=== PATIENT | female | born 1950 | race Caucasian/White ===

== ENCOUNTER → 2017-12-10 01:58 | Outpatient (CLI) | payer OTHER, SELFPAY ==
[2017-12-10 13:43] LABS: ESR 22 MM/HR (0-30)
== END ==
PROVIDERS: PCP Family Medicine; Visit Provider Family Medicine
DX: M79.1 Myalgia (principal)
CPT/HCPCS: 36415; 85652; 86140

== ENCOUNTER → 2018-03-19 09:24 | Outpatient (BNVA) | payer OTHER, SELFPAY | PROVIDERS: PCP Family Medicine; Visit Provider Nurse Practitioner Family | DX: I44.2 Atrioventricular block, complete (principal); I25.10 Atherosclerotic heart disease of native coronary artery without angina pectoris; E78.5 Hyperlipidemia, unspecified; I10 Essential (primary) hypertension; Z45.018 Encounter for adjustment and management of other part of cardiac pacemaker; J44.9 Chronic obstructive pulmonary disease, unspecified; Z87.891 Personal history of nicotine dependence | CPT/HCPCS: 93280; 99214 ==

== ENCOUNTER 2018-04-10 08:10 | Emergency (ER) | payer OTHER, SELFPAY ==
--- NOTE | 2018-04-10 08:19 | W.ED.GENAD ---
Discharge Plan Disposition Patient Disposition: HOME Condition: Fair Discharge Details Chief Complaint: RespSymp Clinical Impression: COPD (chronic obstructive pulmonary disease), Hypoxia Primary Care Provider: Temo Beauchamp ED Provider: Irene Tafoya Home Meds and New Rx's Prescriptions: Continued aspirin [Aspirin Low-Strength] 81 MG tablet,chewable 81 mg PO DAILY RF: 0 TUMS 1 tab PO PM PRN RF: 0 ibuprofen 200 MG tablet 2 tab PO HS RF: 0 lisinopril 20 mg tablet 20 mg PO DAILY Qty: 90 RF: 3 ProAir HFA 90 mcg/actuation HFA aerosol inhaler 1 - 2 puff Inhalation Q4H PRN Qty: 1 RF: 2 metoprolol tartrate 50 mg tablet 50 mg PO BID Qty: 180 RF: 4 No Action albuterol sulfate 2.5 mg /3 mL (0.083 %) solution for nebulization 2.5 mg Inhalation q4-6 h prn Qty: 1 RF: 4 Discharge Instructions Instructions: Using Oxygen at Home (ED), COPD (Chronic Obstructive Pulmonary Disease) (ED), Hypoxia (ED) Additional Instructions: You have elected to leave AGAINST MEDICAL ADVICE, as we recommended admission and you chose to be discharged. The risks of leaving AGAINST MEDICAL ADVICE are and/or permanent disability. You may return to the emergency department at any time if you change your mind. Please return immediately to the emergency department if you develop any new or worsening symptoms or if you become otherwise concerned. It is extremely important that you begin home oxygen as soon as possible as we discussed. It is also extremely important that you make an appointment to be seen by Dr. Montoya next week. Referrals: Temo Beauchamp [Primary Care Provider] - Discharge Data Discharge Date/Time-TO BE ENTERED AT DEPARTURE: 04/10/18 13:27 Medical Decision Making Holli Green is a 67-year-old woman with history of hyperlipidemia, hypertension, complete heart block status post pacemaker, COPD, coronary artery disease, abdominal aortic aneurysm repaired in the past presenting to the emergency department with 1 week of shortness of breath and cough that seems worse at night without any orthopnea. On exam patient is well and nontoxic appearing. Normal work of breathing. Bilateral lower lobes with fine rales, mild expiratory wheeze throughout bilateral lung bolton. 2+ pitting edema bilateral lower extremities without posterior calf tenderness or overlying skin changes. Concern for pneumonia versus CHF versus PE versus coronary artery disease versus other. Exam/history not consistent with sepsis, acute aortic pathology at this time. Plan for EKG, chest x-ray, screening labs, telemetry, duoneb, will monitor and reassess. Patient reports feeling somewhat better after DuoNeb. No significant shortness of breath at this time. Elevated d-dimer. Plan for CT chest. CT chest nondiagnostic. Patient with continued hypoxia on room air. At rest on room air patient O2 sat 88%, heart rate 75. During ambulation on room air, patient O2 sat 82% and heart rate 89. I have significant concern for hypoxia, need for further evaluation and also for home O2. Plan for admission. Patient refuses admission and states that she would prefer to go home and get oxygen through her PCP. Lengthy discussion with patient regarding risks of leaving AGAINST MEDICAL ADVICE including and permanent disability. Patient verbalizes understanding of these risks, and continues to state that she does not want to be admitted and would like to go home at this time. She reports that she feels in her usual state of health at this point. Patient has capacity for decision-making. I discussed patient presentation, results, and my concerns with Dr. Beauchamp over the phone, who reports that he will prescribe home oxygen for the patient and see her in follow-up next week. Lengthy discussion with patient regarding return to emergency department precautions and importance of outpatient follow-up with Dr. Beauchamp. Medical Records Medical records reviewed: Yes I reviewed the patient's medical records. Imaging Data Radiologic Study: Attestation: I personally reviewed and interpreted this imaging study as follows: Radiologist's impression: FRONTAL AND LATERAL CHEST: Comparison is made with 07/15/15. Heart size and pulmonary vasculature are within normal limits. The pacing wires are stable in position. No findings to suggest congestive heart failure or pneumonia are appreciated. No effusions or pneumothoraces are identified. Age appropriate degenerative changes are seen in the spine. IMPRESSION: No acute pulmonary process. CTA OF THE CHEST: CT angiography was performed with multi slice acquisition and multi planar and 3D reconstruction. CT scan of the chest was performed according to the pulmonary embolus protocol. There is no evidence of a pulmonary embolus. The thoracic aorta is of normal caliber. No aneurysm or dissection. The heart size is within normal limits. No significant pericardial effusion. No evidence of right ventricular dysfunction is present. Pacing leads are stable in position. No thoracic adenopathy, pleural effusion or pneumothorax is identified. Emphysematous changes are present in the lungs. There is biapical pleural and parenchymal scarring. Degenerative changes are seen in the spine. IMPRESSION: No evidence of a pulmonary embolus, thoracic aortic dissection or aneurysm. Lab Data Lab results reviewed: Yes I reviewed the patient's lab results. ECG Data Attestation: I personally reviewed and interpreted this ECG (s) as follows: Interpretation: EKG shows normal sinus rhythm at 60 with normal axis, T wave changes V1 and V2 with similar morphology on prior 2013. NO STEMI. Nondiagnostic EKG. HPI General Mode of arrival: ambulatory. Date/Time Provider Initiated Documentation: 04/10/18 08:19. Limitations to Documentation: no limitations. Information obtained by: patient, family, RN notes reviewed and old records reviewed. HPI Narrative: Holli Green is a 67-year-old woman with history of abdominal aortic aneurysm repaired in the past, coronary artery disease, complete heart block status post pacemaker placement, COPD, hypertension, hyperlipidemia presenting to the emergency department with shortness of breath. Patient reports that over the past week she has had shortness of breath and cough. She reports that shortness of breath seems worse at night while lying down. Patient typically sleeps in bed with 3 pillows, and this has not changed over the past week. She has been using her inhaler with only mild relief. She reports that shortness of breath is worse at night and with exertion. Patient reports that she has had no associated pain, although today she had muscle spasms in her back that have since resolved. She has had mild intermittent nausea over the past week without vomiting. She reports she has not noticed any new swelling in her legs. Related Data Home Medications Medication Instructions Recorded Confirmed Tums 1 tab PO PM PRN 09/16/12 04/17/18 aspirin [Aspirin Low-Strength] 81 mg PO DAILY tab-cap 09/16/12 04/17/18 ibuprofen 2 tab PO HS 12/29/15 04/17/18 lisinopril 20 mg tablet 20 mg PO DAILY #90 tab-cap 02/25/18 04/17/18 albuterol sulfate HFA 90 1 - 2 puff INHALATION Q4H PRN #1 03/07/18 04/17/18 mcg/actuation aerosol inhaler inhaler metoprolol tartrate 50 mg tablet 50 mg PO BID #180 tab-cap 04/08/18 04/17/18 albuterol sulfate 2.5 mg/3 mL 2.5 mg INHALATION q4-6 h prn #1 box 04/13/18 04/17/18 (0.083 %) solution for nebulization Previous Rx's Medication Instructions Recorded lisinopril 20 mg tablet 20 mg PO DAILY #90 tab-cap 02/25/18 albuterol sulfate HFA 90 1 - 2 puff INHALATION Q4H PRN #1 03/07/18 mcg/actuation aerosol inhaler inhaler metoprolol tartrate 50 mg tablet 50 mg PO BID #180 tab-cap 04/08/18 albuterol sulfate 2.5 mg/3 mL 2.5 mg INHALATION q4-6 h prn #1 box 04/13/18 (0.083 %) solution for nebulization Allergies Allergy/AdvReac Type Severity Reaction Status Date / Time Gadolinium-Containing Allergy Intermediate Hives Unverified 04/17/18 14:42 Contrast Medi carisoprodol AdvReac Severe GI UPSET Unverified 04/17/18 14:42 codeine AdvReac Severe GI UPSET Unverified 04/17/18 14:42 hydromorphone HCl AdvReac Severe HEAD FEELS Unverified 04/17/18 14:42 [From Dilaudid] FUNNY levofloxacin AdvReac Severe RED FACE Unverified 04/17/18 14:42 AND CHEST, NOT FEEL WELL oxycodone AdvReac Severe GI UPSET Unverified 04/17/18 14:42 triamcinolone acetonide AdvReac Severe BURN AND Unverified 04/17/18 14:42 [From Kenalog] ITCH atorvastatin AdvReac Intermediate MYALGIA Unverified 04/17/18 14:42 pravastatin AdvReac Intermediate MYALGIA Unverified 04/17/18 14:42 simvastatin AdvReac Intermediate MYALGIAS Unverified 04/17/18 14:42 rosuvastatin AdvReac Mild HEARTBURN Unverified 04/17/18 14:42 atenolol AdvReac Unknown Unverified 04/17/18 14:42 Sulfa (Sulfonamide AdvReac Unknown NAUSEA, Unverified 04/17/18 14:42 Antibiotics) VOMITING RED YEAST RICE AdvReac Severe Uncoded 04/17/18 14:42 Review of Systems Review of Systems Constitutional: denies fevers Eyes: denies eye pain ENT: denies facial pain, dental pain, sore throat Cardiovascular: denies chest pain, edema Respiratory: Reports SOB, cough, denies new orthopnea GI: denies abdominal pain, vomiting, diarrhea, reports nausea : denies flank pain MSK: denies back pain, neck pain, arthralgias, reports muscle spasms to back earlier today Skin: denies rash Neuro: denies headaches, lightheadedness, weakness, numbness, tingle PFSH Social History Smoking/Tobacco Use Status: Former Tobacco Use Exam Narrative Exam Narrative: Constitutional: well and [id number], pleasant, conversing normally HENT: head atraumatic, normocephalic normal inspection, mucous membranes moist Eyes: conjunctiva normal, sclera normal, pupils 3mm b/l Neck: no stridor, normal ROM, trachea midline Chest: normal inspection, pacemaker pocket nontender, without edema or erythema Resp: normal work of breathing, fine rales bilateral lower lobes, mild expiratory wheeze throughout bilaterally Cardio: normal rate, normal rhythm, no murmur appreciated GI: abdomen soft, non-tender, non-distended Back: normal inspection, no rash Skin: warm, dry, normal color, no rash Neuro: alert, not altered, grossly non-focal, normal tone Ext: 2+ pitting edema bilateral lower extremities, no posterior calf tenderness Psych: normal mood, normal affect, normal behavior
[2018-04-10 08:21] VITALS: BP 198/81; PULSE 60; RESP 18; TEMP 37.3; O2SAT 92
--- NOTE | 2018-04-10 08:36 | DI.RAD_ITS ---
SYMPTOM/DIAGNOSIS: SOB, COUGH FRONTAL AND LATERAL CHEST: Comparison is made with 07/15/15. Heart size and pulmonary vasculature are within normal limits. The pacing wires are stable in position. No findings to suggest congestive heart failure or pneumonia are appreciated. No effusions or pneumothoraces are identified. Age appropriate degenerative changes are seen in the spine. IMPRESSION: No acute pulmonary process.
[2018-04-10 08:50] LABS: Abs Immature Grans 0.04 k/cumm (0.0-0.09); Absolute Basophil Count 0.03 k/cumm (0.0-0.2); Absolute Lymphocyte Count 2.07 k/cumm (1.2-3.4); Absolute Monocyte Count 0.91 k/cumm (0.11-0.7); Absolute Neutrophil Count 5.97 k/cumm (1.2-6.7); Basophils % 0.3; Eosinophils % 1.1; HCT 41.4 % (36.0-46.0); HGB 13.5 g/dL (12.0-15.5); Immature Grans % 0.4; Lymphocytes % 22.7; Mean Corp. HGB Concentration 32.6 g/dL (32.0-36.0); Mean Corpuscular Hemoglobin 30.5 pg (27.0-33.0); Mean Corpuscular Volume 93.5 fL (80-95); Mean Platelet Volume 12.8 fL (8.0-11.0); Neutrophils % 65.5; Platelet Count 280 x1000/uL (130-400); RBC 4.43 m/cumm (4.00-5.20); RBC Distribution Width 14.9 % (11.7-14.6); White Blood Cell Count 9.12 k/cumm (4.4-10.8)
[2018-04-10 08:57] VITALS: PULSE 60; RESP 2; RESP 25; O2SAT 90
[2018-04-10] MEDS: Albuterol/Ipratropium 3 ML UPD VIAL UPD (08:57)
[2018-04-10] MEDS: Normal Saline Flush 10 ML SYR IVP (08:58)
[2018-04-10 09:08] LABS: ALT 21 U/L (12-78); AST 11 U/L (15-37); Albumin 3.6 g/dL (3.4-5.0); Alkaline Phosphatase 92 U/L (46-116); Anion Gap 9.4 mmol/L (3-11); BUN 16 mg/dL (7-18); Bilirubin, Total 0.4 mg/dL (0.2-1.0); CO2 28.6 mmol/L (21.0-32.0); Calcium 9.1 mg/dL (8.5-10.1); Chloride 100 mmol/L (98-107); Glucose 124 mg/dL (70-100); Magnesium 1.9 mg/dL (1.8-2.4); NT-proBNP 453 pg/mL; Potassium 3.9 mmol/L (3.5-5.1); Sodium 138 mmol/L (136-145); Total Protein 7.4 g/dL (6.4-8.2)
[2018-04-10 09:11] LABS: Troponin I < 0.02 ng/mL (0.00-0.06)
[2018-04-10 09:32] LABS: D-Dimer 2617 ng/mlFEU (<500)
[2018-04-10] MEDS: Omnipaque 350 MG/ML 100 ML BTL 89 ML IJ (11:43)
--- NOTE | 2018-04-10 11:43 | DI.CT_ITS ---
SYMPTOMS/DIAGNOSIS: SHORTNESS OF BREATH, COUGH CTA OF THE CHEST: CT angiography was performed with multi slice acquisition and multi planar and 3D reconstruction. CT scan of the chest was performed according to the pulmonary embolus protocol. There is no evidence of a pulmonary embolus. The thoracic aorta is of normal caliber. No aneurysm or dissection. The heart size is within normal limits. No significant pericardial effusion. No evidence of right ventricular dysfunction is present. Pacing leads are stable in position. No thoracic adenopathy, pleural effusion or pneumothorax is identified. Emphysematous changes are present in the lungs. There is biapical pleural and parenchymal scarring. Degenerative changes are seen in the spine. IMPRESSION: No evidence of a pulmonary embolus, thoracic aortic dissection or aneurysm. The findings were discussed with Mel Shannon of the emergency department on the date of the examination.
[2018-04-10 13:36] VITALS: BP 200/83; PULSE 66; TEMP 36.1; O2SAT 93
[2018-04-10] MEDS: predniSONE 20 MG TAB 60 MG PO (13:43)
--- NOTE | 2018-04-10 18:28 | NUR.NOTE ---
Nursing Note:patient advised to return with any new or worsening sx without hesitation and to call 911 if needed. patient stated she would if need be.
== END 2018-04-10 13:27 | disposition home or self-care (01) ==
PROVIDERS: Emergency Provider Student in an Organized Health Care Education/Training Program; PCP Family Medicine
DX: J44.9 Chronic obstructive pulmonary disease, unspecified (principal); R09.02 Hypoxemia; Z87.891 Personal history of nicotine dependence; Z53.29 Procedure and treatment not carried out because of patient's decision for other reasons; I10 Essential (primary) hypertension; I44.2 Atrioventricular block, complete; Z95.0 Presence of cardiac pacemaker
CPT/HCPCS: 36415; 71275; 80053; 87449; 93005; 94640; 99285; 71046; 83735; 83880; 84484; 85025; 85379; 93010; J3490; J7512; J7620

== ENCOUNTER 2020-05-25 14:38 | Outpatient (REF) | payer OTHER, SELFPAY ==
[2020-05-25 21:52] LABS: Bilirubin Negative (Negative); Blood Trace-lysed (Negative); Clarity Cloudy (Clear); Glucose Negative (Negative); Ketones Negative (Negative); Leukocyte Esterase Small (Negative); Nitrite Negative (Negative); Specific Gravity 1.025 (1.005-1.025); Urobilinogen 0.2 EU/dL (Up TO 0.2); pH 5.5 (5-8)
[2020-05-25 22:05] LABS: Bacteria Many HPF (Negative); C & S Indicated? Yes; Casts Negative LPF (Negative); Crystals Negative HPF (Negative); Epithelial Cells Few HPF (Negative); Mucus Negative (Negative); RBC 0-2 HPF (0-2)
== END 2020-05-25 14:58 ==
LOC: LBN 14:38
PROVIDERS: PCP Family Medicine; Visit Provider Family Medicine
DX: R82.90 Unspecified abnormal findings in urine (principal)
CPT/HCPCS: 87077; 81003; 81015; 87086; 87186

== ENCOUNTER 2021-02-02 09:16 | Inpatient (IN) | payer OTHER, SELFPAY ==
[2021-02-02] VITALS (39 sets, daily range): BP systolic 138–177; BP diastolic 59–85; PULSE 61–80; RESP 13–27; TEMP 35.1–37; O2SAT 85–96
--- NOTE | 2021-02-02 09:15 | RT.EKG_ITS ---
APPROVED REPORT Exam: Resting ECG Reason for Exam: sob Patient Location: E HR:69 bpm ECG Measurements Heart Rate 69 AXIS DC 209 P 45 QRSd 104 QRS 42 QT 396 T 3 QTc 424 Conclusion Sinus rhythm...normal P axis, V-rate 60- 99
--- NOTE | 2021-02-02 09:47 | ED.GENADUL_ITS ---
Discharge Plan Disposition Patient Disposition: [facility] INPATIENT Condition: Stable Discharge Details Chief Complaint: SOB Clinical Impression: CHF (congestive heart failure) Admit Date/Time: 02/02/21 12:46 Admit Provider: Chrissy Tariq Attending Provider: Chrissy Tariq Primary Care Provider: Temo Beauchamp ED Provider: Camilo Woods Discharge Data Discharge Date/Time-TO BE ENTERED AT DEPARTURE: 02/02/21 14:26 Medical Decision Making 70-year-old female presents from home. She has history of COPD, CHF. She notes approximately 1 week somewhat progressive exertional dyspnea that has been worsened climbing stairs in her home. Does some shortness of breath while lying flat upon my history taking, preferring the upright position. She has had some mild peripheral edema. She also notes postnasal drip. Well-appearing, oxygenating 90% on room air. X-ray reveals question increased interstitial markings in the right base, representing atelectasis or pneumonia. Pulmonary vasculature normal. Remainder of diagnostics reveal white count 7, hematocrit 40, platelets 278. BUN 18, creatinine 0.8, troponin negative, BNP 440. After nebulizer treatment with beta agonist, patient desaturates at rest to 86% on room air,, requiring nasal oxygen. I feel her hypoxia is multimodal and likely has a component of CHF, bronchospasm. Patient served in a cardiac exercise specialist and repeat troponin obtained and negative. Case discussed with Dr. Tariq, patient administered 20 mg of Lasix for fluid overload with approx 850cc UOP. HPI General Mode of arrival: ambulatory . Date/Time Provider Initiated Documentation: 02/02/21 09:25 . Limitations to Documentation: no limitations . Information obtained by: patient . History of Present Illness 70 year old F presents to the emergency department with the chief complaint of Shortness of breath, chronic cough, postnasal drip, described as moderate, and is localized to the chest. Patient reports no radiation. Patient started experiencing this day(s) and it has been intermittent. Rest improves symptom(s), Movement worsens symptoms . Patient notes cough and shortness of breath; denies fever/chills. Patient did receive the following treatments prior to arrival, none Related Data Home Medications Medication Instructions Recorded Confirmed aspirin [Aspirin Low-Strength] 81 mg PO DAILY tab-cap 09/16/12 02/02/21 ibuprofen 2 tab PO HS 12/29/15 02/02/21 albuterol sulfate 90 mcg/actuation 1 - 2 puff INHALATION Q4H PRN #1 04/15/19 02/02/21 aerosol inhaler inhaler nitroglycerin 0.4 mg sublingual 0.4 mg SUBLINGUAL Q5-15M PRN #25 05/29/20 02/02/21 tablet tab albuterol sulfate 2.5 mg INHALATION q4-6 h prn #1 box 07/16/20 02/02/21 metoprolol succinate 25 mg 37.5 mg PO DAILY #135 tab 07/26/20 02/02/21 tablet,extended release 24 hr lisinopril 40 mg tablet 40 mg PO DAILY #90 tab 08/24/20 02/02/21 doxazosin 2 mg tablet 2 mg PO DAILY #30 tab 12/10/20 02/02/21 Previous Rx's Medication Instructions Recorded albuterol sulfate 90 mcg/actuation 1 - 2 puff INHALATION Q4H PRN #1 04/15/19 aerosol inhaler inhaler nitroglycerin 0.4 mg sublingual 0.4 mg SUBLINGUAL Q5-15M PRN #25 05/29/20 tablet tab albuterol sulfate 2.5 mg INHALATION q4-6 h prn #1 box 07/16/20 metoprolol succinate 25 mg 37.5 mg PO DAILY #135 tab 07/26/20 tablet,extended release 24 hr lisinopril 40 mg tablet 40 mg PO DAILY #90 tab 08/24/20 doxazosin 2 mg tablet 2 mg PO DAILY #30 tab 12/10/20 Allergies Allergy/AdvReac Type Severity Reaction Status Date / Time Gadolinium-Containing Allergy Intermediate Hives Verified 02/02/21 09:34 Contrast Medi hydrochlorothiazide Allergy Intermediate rash/hives Verified 02/02/21 09:34 spironolactone Allergy Intermediate RASH, Verified 02/02/21 09:34 ITCHING, NAUSEA, H/A carisoprodol AdvReac Severe GI UPSET Verified 02/02/21 09:34 codeine AdvReac Severe GI UPSET Verified 02/02/21 09:34 hydromorphone HCl AdvReac Severe HEAD FEELS Verified 02/02/21 09:34 [From Dilaudid] FUNNY levofloxacin AdvReac Severe RED FACE Verified 02/02/21 09:34 AND CHEST, NOT FEEL WELL oxycodone AdvReac Severe GI UPSET Verified 02/02/21 09:34 triamcinolone acetonide AdvReac Severe BURN AND Verified 02/02/21 09:34 [From Kenalog] ITCH amlodipine AdvReac Intermediate Nausea Verified 02/02/21 09:34 atorvastatin AdvReac Intermediate MYALGIA Verified 02/02/21 09:34 pravastatin AdvReac Intermediate MYALGIA Verified 02/02/21 09:34 simvastatin AdvReac Intermediate MYALGIAS Verified 02/02/21 09:34 rosuvastatin AdvReac Mild HEARTBURN Verified 02/02/21 09:34 atenolol AdvReac Unknown Verified 02/02/21 09:34 Sulfa (Sulfonamide AdvReac Unknown NAUSEA, Verified 02/02/21 09:34 Antibiotics) VOMITING RED YEAST RICE AdvReac Severe Uncoded 02/02/21 09:34 General Stated Complaint: SOB OSEI: 2 Review of Systems Narrative: Shortness of breath worse with exertion climbing stairs. Chronic cough that is unchanged. Question new peripheral edema. Postnasal drip. No fever. 8 systems reviewed and otherwise negative [facility] Medical History Allergic sinusitis Sleep disorder Surgical History AAA REPAIR 07/2009 BUNIONECTOMY X4 Ligation of fallopian tube BSO Pacemaker (~02/2013) Repair of inguinal hernia LEFT Splenomegaly (~07/2009) Stent placement (~06/2008) X 1 Family History Mother Essential hypertension Aortic aneurysm Father Heart disease [place] (8) Essential hypertension Aortic aneurysm Heart disease Hyperlipidemia Grandfather No problems noted. Grandfather No problems noted. Grandmother No problems noted. Grandmother No problems noted. Social History Smoking/Tobacco Use Status: Former Tobacco Use Quit Date: 01/29/08 Smoking risk assessment performed?: Yes Alcohol Intake: never Drug use: Never Substance use type: does not use Do you feel safe at home: Yes Do you feel safe in your relationship?: Yes Exam Narrative Exam Narrative: GEN: awake, alert, oriented 3. Pleasant, well groomed, interactive. HEAD: Normocephalic, atraumatic ENT: Mucous membranes moist, oropharynx unremarkable, External ear exam unremarkable EYES: PERRL, EOMI NECK: Full ROM, no ALDO, no menigismus CHEST/RESP: Nontender, diminished, no wheeze appreciated, question fine rales at the bases. CARDIOVASCULAR: RRR, no murmur, rub dolores. 2+ Rad pulse bilateral ABDOMEN: Soft, nontender, no mass. +Bowel sounds EXT: Full ROM, 1-2+ pretibial symmetric bilateral edema, no rash Neuro: Grossly normal neurologic exam, conversant, interactive. Psych: Speech fluent, thoughts congruent, affect normal Course Vital Signs Vital signs: Vital Signs Temperature 36.7 C 02/02/21 09:29 Pulse 69 02/02/21 09:29 Respiratory Rate 20 02/02/21 09:29 Blood Pressure 176/81 H 02/02/21 09:29 Pulse Oximetry 90 L 02/02/21 09:29 Temperature 36.7 C 02/02/21 09:29 Temperature Source Skin 02/02/21 09:29 Pulse 69 02/02/21 09:29 Respiratory Rate 20 02/02/21 09:29 Respiratory Effort Labored 02/02/21 09:36 Blood Pressure 176/81 H 02/02/21 09:29 Blood Pressure Position Sitting 02/02/21 09:29 Pulse Oximetry 90 L 02/02/21 09:29 Oxygen Delivery Method Room Air 02/02/21 09:29 Oxygen Flow Rate 0 02/02/21 09:29 Pain Level 0 02/02/21 09:29
[2021-02-02 09:52] LABS: Source Nasal/Nares
[2021-02-02 09:52] LABS: Abs Immature Grans 0.02 10^3/uL (0.0-0.06); Absolute Basophil Count 0.04 10^3/uL (0.0-0.2); Absolute Lymphocyte Count 2.01 10^3/uL (1.2-3.4); Absolute Monocyte Count 0.75 10^3/uL (0.1-0.8); Basophils % 0.5; Eosinophils % 1.3; HCT 40.8 % (36.0-46.0); Immature Grans % 0.3; Lymphocytes % 26.4; MCHC 31.9 % (32.0-36.0); MCV 94.2 fL (80-95); Monocytes % 9.8; Neutrophils % 61.7; Nucleated RBC 0 %; Platelet Count 278 10^3/uL (130-400); RBC 4.33 10^6/uL (3.93-5.22); RDW 14.5 % (11.7-14.6); RDW-SD 50.5 fL; WBC 7.62 10^3/uL (4.4-10.8)
[2021-02-02 10:08] LABS: ALT 29 U/L (14-59); AST 14 U/L (15-37); Albumin 3.6 g/dL (3.4-5.0); Alkaline Phosphatase 82 U/L (46-116); Anion Gap 3.4 mmol/L (3-11); BUN 18 mg/dL (7-18); Bilirubin, Total 0.3 mg/dL (0.2-1.0); CO2 32.6 mmol/L (21.0-32.0); CREATININE 0.8 mg/dL (0.55-1.02); Calcium 9.3 mg/dL (8.5-10.1); Chloride 104 mmol/L (98-107); Glucose 91 mg/dL (74-106); Magnesium 2.3 mg/dL (1.8-2.4); Potassium 4.1 mmol/L (3.5-5.1); Sodium 140 mmol/L (136-145); Total Protein 7.8 g/dL (6.4-8.2); Troponin I < 0.05 ng/mL (<0.06)
[2021-02-02 10:12] LABS: NT-proBNP 440 pg/mL (<300)
--- NOTE | 2021-02-02 10:13 | DI.RAD_ITS ---
Exam(s) XR PORTABLE CHEST AP EXAM: XR PORTABLE CHEST AP CLINICAL HISTORY: SOB, cough TECHNIQUE: 2D digital imaging was performed of the chest. One image was obtained. An AP view was ob tained. COMPARISON: No exams were available for comparison FINDINGS: MEDIASTINUM: Normal. HEART: Heart size is stable given the AP projection. PULMONARY VASCULATURE: Normal. LUNGS: No focal consolidating infiltrates. Question of increased interstitial markings in the right base. This may represent atelectasis or pneumonia. PLEURAL SPACE: No pleural effusion or pneumothorax. BONE:Within normal limits for the patient's age. OTHER FINDINGS:Transvenous pacing wires are stable. IMPRESSION: Question of increased interstitial markings in the right base. This may represent atelectasis or pne umonia. DATA REPOSITORY: RADIATION DOSE DELIVERED:
[2021-02-02] MEDS: Albuterol/Ipratropium 3 ML UPD VIAL UPD (10:30)
[2021-02-02] MEDS: Normal Saline Flush 10 ML SYR IVP ×2 (11:39→15:22)
[2021-02-02] MEDS: Furosemide 20 MG/2 ML VIAL IVP ×2 (11:39→15:23)
--- NOTE | 2021-02-02 11:45 | RT.EKG_ITS ---
APPROVED REPORT Exam: Resting ECG Reason for Exam: sob Patient Location: E HR:66 bpm ECG Measurements Heart Rate 66 AXIS [place] 189 P 32 QRSd 108 QRS 34 QT 417 T 12 QTc 437 Conclusion Sinus rhythm...normal P axis, V-rate 60- 99
[2021-02-02 12:08] LABS: Procalcitonin < 0.1 ng/mL
[2021-02-02 12:11] LABS: Troponin I < 0.05 ng/mL (<0.06)
[2021-02-02 13:54] LABS: TSH 1.65 uIU/mL (0.36-3.74)
[2021-02-02] MEDS: Enoxaparin 40 MG/0.4 ML SYR SC (15:22)
[2021-02-02 15:49] LABS: COVID-19 PCR Negative (Negative)
[2021-02-02 16:23] LABS: Troponin I < 0.05 ng/mL (<0.06)
--- NOTE | 2021-02-02 17:18 | DI.US_ITS ---
APPROVED REPORT EXAM: Comprehensive 2D, Doppler, and color-flow Echocardiogram Other Information Study Quality: Adequate. Technically limited study due to body habitus. Conclusion Mild concentric left ventricular hypertrophy. Estimated ejection fraction is 60%. Wall motion is no rmal Normal right ventricular size and systolic function The left atrium is mildly dilated. The right atrium is borderline dilated Sclerotic trileaflet aortic valve without stenosis or regurgitation Mitral annular calcification. Trace to mild mitral regurgitation Normal tricuspid valve with trace regurgitation Normal pulmonic valve Dilated ascending aorta measuring 3.8 cm Wall motion Left Ventricle The left ventricle is normal size. The left ventricular systolic function is normal. The left ventric ular ejection fraction is within the normal range. Mild concentric left ventricular hypertrophy. Ther e is normal LV segmental wall motion. There is no ventricular septal defect visualized. LVEF is 60%. Right Ventricle The right ventricle is normal size. The right ventricular systolic function is normal. Device lead is present in the right ventricle. Atria Left atrium is mildly dilated. Right atrium is borderline dilated. The interatrial septum is intact w ith no evidence for an atrial septal defect. Aortic Valve The Aortic valve is sclerotic. There is no aortic valvular stenosis. No aortic regurgitation is prese nt. Mitral Valve Moderate mitral annular calcification. No evidence of mitral valve stenosis. Trace to mild mitral reg urgitation. Tricuspid Valve The tricuspid valve is normal in structure. There is no tricuspid valve stenosis. Trace tricuspid reg urgitation. Unable to assess PA pressure. Pulmonic Valve The pulmonary valve is normal in structure. There is no pulmonic valvular stenosis. There is no pulmo cali valvular regurgitation. Great Vessels The aortic root is normal in size. The ascending aorta is moderately dilated.3.8 cm Aortic arch is no t well visualized. IVC is normal in size and collapses >50% with inspiration. Pericardium There is no pericardial effusion. 2D Dimensions IVSD d PLAX 1.09 cm F: 0.6-1.0 LV Vol A2C d MOD 132.7 mL LVPW d PLAX 1.16 cm F: 0.6 - 1.0 LV Vol A4C d MOD 119.4 mL LVID d PLAX 4.93 cm F: 3.8 - 5.2 LA vol/ BSA A2C s A-L 21.3 mL/m2 LVDs 3.45 cm F: 2.2 - 3.5 LA vol/ BSA A4C s A-L 36.3 mL/m2 Ao Root d 3.11 cm F: 2.7 - 3.3 LA Vol/ BSA Biplane s A-L 30.2 mL/m2 RA Area A4C 18.13 cm2 LA Area A4C s MOD 24.35 cm2 RA Vol/ BSA A4C s A-L 25.5 mL/m2 LA Area A2C s MOD 17.19 cm2 Ao Asc Diam d 3.80 cm F: 2.3 - 3.1 LV EF A4C MOD 60.5 % LV EF Teichholz 56.0 % LV EF A2C MOD 60.3 % LVEF (Ha's) 60.24 % F: 54 - 74 LV EF Biplane MOD 60.2 % LV Volume 94.43 mL F: 46 - 106 SV 76.45 mL LV Volume Index 46.28 mL/m2 F: 29 - 61 SV Index 37.33 mL/m2 LV Vol Biplane MOD 126.9 mL FS 29.30 % M-Mode TAPSE 2.71 cm (M/F) >1.7 LV Diastology MV E' medial 0.090 (>0.07 m/s) E/A Ratio 0.7 LV E/e MED 8.35 (<14) MV E Vmax 0.76 (0.4-1.3 m/s) MV E' lateral 0.087 (>0.1 m/s) MV A Vmax 1.10 (0.4-1.3 m/s) LV E/e LAT 8.70 (<14) MV E/A Ratio 0.68 MV E/E' medial 8.38 MV E/E' lateral 8.73 Aortic Valve LVOT Area 3.39 cm2 AoV Area Vmax 2.24 cm2 LVOT Vmax 1.18 m/s AoV Area/ BSA (Vmax) 1.09 cm2/m2 LVOT Mean Oh. 0.70 m/s LUISA Mean Oh. 2.09 cm2 LVOT Peak Grad 5.6 mmHg LUISA Mean Ho. Index 1.02 cm2/m2 LVOT Mean Grad 2.4 mmHg LVOT VTI 0.242 m LVOT Diam s 2.05 cm AoV Vmax 1.78 m/s Velocity Ratio 0.66 AoV Mean Oh. 1.14 m/s AoV Peak Grad 12.7 mmHg LVOT SV 82.00 mL AoV Mean Grad 6.0 mmHg AoV VTI 0.278 m AoV Area VTI 2.95 cm2 AoV Area/ BSA (VTI) 1.44 cm/m2 Mitral Valve MV DT 423 (160-240 msec) MV PHT 123 msec MV Area PHT 1.79 cm2 MV VTI 0.435 m MV Area VTI 1.89 (4.0-6.0 cm2) Pulmonary Valve PV Vmax 1.32 (0.5-1.5 m/s) RVOT Peak Gr. 5.44 mmHg PV Peak Grad 7.0 mmHg RVOT Mean Gr. 2.45 mmHg PV Mean Grad 3.3 mmHg RVOT VTI 0.155 m PV VTI 0.285 m RVOT Vmax 1.17 m/s
--- NOTE | 2021-02-02 17:56 | HPE_ITS ---
Date of service: 02/02/21 Time of Service: 17:56 Assessment and Plan Assessment and plan (1) Hypoxia: Status: Acute Assessment and plan: initially felt to be multifactorial procal negative, no white count, no fever. unlikely infectious. covid negative influenza pending given lasix and diuresing. still requiring oxygen so admitted to hospitalist services. wean as able serial troponins have been negative. echo pending. has chronic swelling in left lower ext (will get ultrasound to r/o DVT) consider ddimer. this is discussed with patient who declines further work up, states she wouldn't be agreeable to anticoagulation and that if this is it, this is it. did discuss with her that if this is a pulmonary embolism it is treatable and if not treated can be fatal. she still adamantly declines. (2) CHF (congestive heart failure): Status: Chronic Assessment and plan: last echo in 2008, one pending for today diuresing well, monitor I&O, weights. wean oxygen as able discussed with DR Tariq History of Present Illness History of Present Illness Chief Complaint: shortness of breath Narrative: This is a 70-year-old female who presents to the ED from home. She has history of COPD, CHF. She notes approximately 1 week somewhat progressive exertional dyspnea that has been worsened climbing stairs in her home. Reports shortness of breath while lying flat, some mild peripheral edema, and hypoxia on room air with sats in the 80's on room air. she was diagnosed with covid in the spring and has been vaccinated. Her work up included X-ray reveals question increased interstitial markings in the right base, representing atelectasis or pneumonia. Pulmonary vasculature normal. Remainder of diagnostics reveal white count 7, hematocrit 40, platelets 278. BUN 18, creatinine 0.8, troponin negative, BNP 440. After nebulizer treatment with beta agonist, patient desaturates at rest to 86% on room air,, requiring nasal oxygen. It was felt her hypoxia is multimodal and likely has a component of CHF, bronchospasm. She was placed on a monitoring analyst and repeat troponin obtained and negative. She was given 20 mg of Lasix for fluid overload with approx 850cc UOP. Review of Systems All systems reviewed & are unremarkable except as noted in HPI and below [facility] Medical History Allergic sinusitis Sleep disorder Surgical History AAA REPAIR 07/2009 BUNIONECTOMY X4 Ligation of fallopian tube BSO Pacemaker (~02/2013) Repair of inguinal hernia LEFT Splenomegaly (~07/2009) Stent placement (~06/2008) X 1 Family History Mother Essential hypertension Aortic aneurysm Father Heart disease S[place]INGS (8) Essential hypertension Aortic aneurysm Heart disease Hyperlipidemia Grandfather No problems noted. Grandfather No problems noted. Grandmother No problems noted. Grandmother No problems noted. Social History Smoking/Tobacco Use Status: Former Tobacco Use Quit Date: 01/29/08 Smoking risk assessment performed?: Yes Alcohol Intake: never Drug use: Never Substance use type: does not use Do you feel safe at home: Yes Do you feel safe in your relationship?: Yes Meds Allergies and Home Medications Allergies Allergy/AdvReac Type Severity Reaction Status Date / Time Gadolinium-Containing Allergy Intermediate Hives Verified 02/02/21 09:34 Contrast Medi hydrochlorothiazide Allergy Intermediate rash/hives Verified 02/02/21 09:34 spironolactone Allergy Intermediate RASH, Verified 02/02/21 09:34 ITCHING, NAUSEA, H/A carisoprodol AdvReac Severe GI UPSET Verified 02/02/21 09:34 codeine AdvReac Severe GI UPSET Verified 02/02/21 09:34 hydromorphone HCl AdvReac Severe HEAD FEELS Verified 02/02/21 09:34 [From Dilaudid] FUNNY levofloxacin AdvReac Severe RED FACE Verified 02/02/21 09:34 AND CHEST, NOT FEEL WELL oxycodone AdvReac Severe GI UPSET Verified 02/02/21 09:34 triamcinolone acetonide AdvReac Severe BURN AND Verified 02/02/21 09:34 [From Kenalog] ITCH amlodipine AdvReac Intermediate Nausea Verified 02/02/21 09:34 atorvastatin AdvReac Intermediate MYALGIA Verified 02/02/21 09:34 pravastatin AdvReac Intermediate MYALGIA Verified 02/02/21 09:34 simvastatin AdvReac Intermediate MYALGIAS Verified 02/02/21 09:34 rosuvastatin AdvReac Mild HEARTBURN Verified 02/02/21 09:34 atenolol AdvReac Unknown Verified 02/02/21 09:34 Sulfa (Sulfonamide AdvReac Unknown NAUSEA, Verified 02/02/21 09:34 Antibiotics) VOMITING RED YEAST RICE AdvReac Severe Uncoded 02/02/21 09:34 Home Medications Medication Instructions Recorded Confirmed Type aspirin [Aspirin Low-Strength] 81 mg PO DAILY tab-cap 09/16/12 02/02/21 History ibuprofen 2 tab PO HS 12/29/15 02/02/21 History albuterol sulfate 90 mcg/actuation 1 - 2 puff INHALATION Q4H PRN #1 04/15/19 02/02/21 Rx aerosol inhaler inhaler nitroglycerin 0.4 mg sublingual 0.4 mg SUBLINGUAL Q5-15M PRN #25 05/29/20 02/02/21 Rx tablet tab albuterol sulfate 2.5 mg INHALATION q4-6 h prn #1 box 07/16/20 02/02/21 Rx metoprolol succinate 25 mg 37.5 mg PO DAILY #135 tab 07/26/20 02/02/21 Rx tablet,extended release 24 hr lisinopril 40 mg tablet 40 mg PO DAILY #90 tab 08/24/20 02/02/21 Rx doxazosin 2 mg PO HS 02/02/21 02/02/21 History Exam Const General: cooperative, healthy appearing, comfortable and no acute distress Nutritional Appearance: overweight [facility] Head: normal to inspection, normocephalic and atraumatic Mouth: oral mucosae normal Neck Neck: no JVD Chest Chest: normal inspection of the chest Resp Effort & Inspection: labored Auscultation: rales Cardio Rate: regular rate Rhythm: regular rhythm Heart Sounds: no murmurs Skin General skin exam: no rashes or lesions noted Neuro General: patient alert, patient awake, patient oriented x3 and no focal motor deficits Extrem General: no pedal edema (left greater than right. states chronic) Psych Affect: blunted Results Labs Result diagrams: 02/02/21 09:40 02/03/21 06:37 Labs: Laboratory Results - last 24 hr 02/02/21 02/02/21 02/02/21 09:40 09:40 09:40 WBC 7.62 RBC 4.33 Hgb 13.0 Hct 40.8 MCV 94.2 MCH 30.0 MCHC 31.9 L RDW 14.5 Plt Count 278 MPV 12.0 H Immature Gran % 0.3 Neutrophils % 61.7 Lymphocytes % 26.4 Monocytes % 9.8 Eosinophils % 1.3 Basophils % 0.5 Nucleated RBC % 0 Absolute Neutrophils 4.70 Absolute Lymphocytes 2.01 Absolute Monocytes 0.75 Absolute Eosinophils 0.10 Absolute Basophils 0.04 Sodium 140 Potassium 4.1 Chloride 104 Carbon Dioxide 32.6 H Anion Gap 3.4 BUN 18 Creatinine 0.8 Estimated GFR/1.73 m2 >= 60.00 Glucose 91 Calcium 9.3 Magnesium 2.3 Total Bilirubin 0.3 AST 14 L ALT 29 Alkaline Phosphatase 82 Troponin I < 0.05 NT-Pro-B Natriuret Pep 440 H Total Protein 7.8 Albumin 3.6 Procalcitonin TSH Free T4 COVID-19 Source SARS-CoV-2 (PCR) 02/02/21 02/02/21 02/02/21 09:40 09:45 11:45 WBC RBC Hgb Hct MCV MCH MCHC RDW Plt Count MPV Immature Gran % Neutrophils % Lymphocytes % Monocytes % Eosinophils % Basophils % Nucleated RBC % Absolute Neutrophils Absolute Lymphocytes Absolute Monocytes Absolute Eosinophils Absolute Basophils Sodium Potassium Chloride Carbon Dioxide Anion Gap BUN Creatinine Estimated GFR/1.73 m2 Glucose Calcium Magnesium Total Bilirubin AST ALT Alkaline Phosphatase Troponin I < 0.05 NT-Pro-B Natriuret Pep Total Protein Albumin Procalcitonin < 0.1 TSH Free T4 COVID-19 Source Nasal/Nares SARS-CoV-2 (PCR) Negative 02/02/21 02/02/21 11:45 16:00 WBC RBC Hgb Hct MCV MCH MCHC RDW Plt Count MPV Immature Gran % Neutrophils % Lymphocytes % Monocytes % Eosinophils % Basophils % Nucleated RBC % Absolute Neutrophils Absolute Lymphocytes Absolute Monocytes Absolute Eosinophils Absolute Basophils Sodium Potassium Chloride Carbon Dioxide Anion Gap BUN Creatinine Estimated GFR/1.73 m2 Glucose Calcium Magnesium Total Bilirubin AST ALT Alkaline Phosphatase Troponin I < 0.05 NT-Pro-B Natriuret Pep Total Protein Albumin Procalcitonin TSH 1.65 Free T4 1.10 COVID-19 Source SARS-CoV-2 (PCR) Last Vital Signs Temp 35.1 C L 02/02/21 15:00 Pulse 66 02/02/21 15:00 Resp 24 02/02/21 15:00 BP 153/85 H 02/02/21 15:00 Pulse Ox 90 L 02/02/21 15:10
[2021-02-02] MEDS: Albuterol 2.5 MG/3 ML INH SOLN VIAL UPD (20:04)
[2021-02-02] MEDS: Ibuprofen 200 MG TAB 400 MG PO (21:27)
[2021-02-02] MEDS: Doxazosin 2 MG TAB PO (21:27)
[2021-02-03] VITALS (9 sets, daily range): BP systolic 106–164; BP diastolic 50–85; PULSE 62–68; RESP 16–22; TEMP 36.4–37.3; O2SAT 90–94
--- NOTE | 2021-02-03 | DI.US_ITS ---
Exam(s) US EXTREMITY VENOUS BI EXAM: US EXTREMITY VENOUS BI CLINICAL HISTORY: bilateral lower ext swelling, hypoxia and sob, L>R. TECHNIQUE: Bilateral lower extremity venous ultrasound performed using grayscale, color-flow, and sp ectral Doppler analysis. COMPARISON: No exams were available for comparison FINDINGS: The bilateral common femoral, femoral and popliteal veins demonstrate normal compressibility, augment ation, and color Doppler. The posterior tibial veins are patent. The saphenofemoral junctions are unr emarkable. There is no evidence of a Wheeler's cyst. The soft tissues are unremarkable. IMPRESSION: Right: Negative for DVT Left: Negative for DVT DATA REPOSITORY:
[2021-02-03 07:19] LABS: Anion Gap 5.3 mmol/L (3-11); BUN 22 mg/dL (7-18); CO2 30.7 mmol/L (21.0-32.0); CREATININE 0.8 mg/dL (0.55-1.02); Calcium 9.2 mg/dL (8.5-10.1); Calculated LDL 161 mg/dL (<100); Chloride 101 mmol/L (98-107); Cholesterol 252 mg/dL (<200); Glucose 95 mg/dL (74-106); HDL Cholesterol 53 mg/dL (40-60); Magnesium 2.2 mg/dL (1.8-2.4); Potassium 4.1 mmol/L (3.5-5.1); Sodium 137 mmol/L (136-145); Triglyceride 191 mg/dL (<150)
[2021-02-03 07:42] LABS: D-Dimer 3512 ng/mlFEU (<500)
[2021-02-03] MEDS: Lisinopril 20 MG TAB 40 MG PO (09:04)
[2021-02-03] MEDS: Metoprolol CR 25 MG TABCR 37.5 MG PO (09:04)
[2021-02-03] MEDS: Aspirin 81 MG CHEW PO (09:05)
[2021-02-03] MEDS: Furosemide 20 MG/2 ML VIAL IVP ×2 (09:05→16:07)
[2021-02-03] MEDS: Normal Saline Flush 10 ML SYR IVP ×3 (09:06→16:07)
--- NOTE | 2021-02-03 09:15 | INITIAL_ITS ---
- If Service Date Differs Date of service: 02/03/21 Time of Service: 09:15 Care Management Initial Assess REASON FOR HOSPITALIZATION:: New onset CHF. PAST MEDICAL HISTORY/PAST SURGICAL HISTORY:: Allergic sinusitis. Sleep disorder. AAA REPAIR. 07/2009. BUNIONECTOMY. X4. Ligation of fallopian tube. BSO. Pacemaker (~02/2013). Repair of inguinal hernia. LEFT. Splenomegaly (~07/2009). Stent placement (~06/2008). X 1 PREVIOUS FUNCTIONAL STATUS/SOCIAL/FAMILY SUPPORTS:: Holli resides in [place] with her significant other, Jeffrey Holloway. Holli reports Jeffrey is a recent cancer survivor and has residual neuropathy as a result. He works fulltime and is exhausted when he returns home. Holli runs the household, as she is retired. She reports staying extremely busy with keeping the house clean, laundry caught up and baking cookies and homemade bread for her grandsons ages 14, 16 who attend and spend everyday after school with her as well as every weekend. Holli reports losing her daughter to Cancer in March and states she has helped raise the boys since they were born. She is independent at baseline but reports having to use a nebulizer from [facility] and rescue inhaler when she becomes short of breath. Holli reports enjoying embroidery, puzzle books including crosswords and adult coloring. She is independent at baseline in the community. CURRENT FUNCTIONAL STATUS:: Holli is sitting on the side of her bed when meets with her. She was forthcoming with information and pleasant in interaction. brought crosswords puzzle book and adult coloring for Holli to utilize while awaiting discharge. ADVANCE DIRECTIVES:: None on file at [facility]. Has patient been provided with info about the portal/API?: No Did the patient sign up for the portal?: No CODE STATUS:: Full Code INSURANCE COVERAGE / FINANCIAL ISSUES:: [employer] CURRENT HOME/COMMUNITY SERVICES/EQUIPMENT:: Nebulizer through [employer], rescue inhaler. PRIMARY CARE PHYSICIAN:: Temo Beauchamp POTENTIAL DISCHARGE NEEDS:: Follow up appointments. PATIENT/FAMILY EDUCATION NEEDS:: Review of discharge instructions, discuss Ask Me Three. ANTICIPATED BARRIERS TO DISCHARGE:: None identified at this time. TRANSPORTATION:: Via private vehicle with her significant other. PLAN:: Holli will discharge home when ready per MD. She continues work up including additional imaging at this time. Anticipate she will return home when ready, follow up with her PCP and plan of care as prescribed, and transport with her significant other, Jeffrey. CM continues to follow.
--- NOTE | 2021-02-03 09:25 | W.PM.PROGNOT ---
Date of Service Date of service: 02/03/21 Time of Service: 09:25 Assessment and Plan Assessment and plan (1) Hypoxia: Status: Acute Assessment and plan: initially felt to be multifactorial procal negative, no white count, no fever. unlikely infectious. covid negative influenza pending given lasix and diuresing. still requiring oxygen so admitted to hospitalist services. wean as able serial troponins have been negative. echo pending. has chronic swelling in left lower ext (will get ultrasound to r/o DVT) consider ddimer. this is discussed with patient who declines further work up, states she wouldn't be agreeable to anticoagulation and that if this is it, this is it. did discuss with her that if this is a pulmonary embolism it is treatable and if not treated can be fatal. she still adamantly declines. (2) CHF (congestive heart failure): Status: Chronic Assessment and plan: last echo in 2008, -2700 yesterday, -2300 so far today diuresing well continue to monitor I&O, weight down 1.5 kg. continue daily weights. wean oxygen as able cardiology consult placed discussed with DR Tariq (3) Elevated d-dimer: Status: Acute Assessment and plan: ddimer at 3500. bilateral LE US negative for DVT CT chest for PE: negative for PE. Subjective Subjective Interval history since last seen: still requiring oxygen, now up to 3 liters. Exam Const General: cooperative, healthy appearing, comfortable and no acute distress Nutritional Appearance: overweight [place] Head: normal to inspection, normocephalic and atraumatic Mouth: oral mucosae normal Neck Neck: no JVD Chest Chest: normal inspection of the chest Resp Effort & Inspection: labored Auscultation: rales Cardio Rate: regular rate Rhythm: regular rhythm Heart Sounds: no murmurs Skin General skin exam: no rashes or lesions noted Neuro General: patient alert, patient awake, patient oriented x3 and no focal motor deficits Extrem General: no pedal edema (left greater than right. states chronic) Psych Affect: blunted Objective Last Vital Signs Temp 36.4 C L 02/03/21 07:43 Pulse 63 02/03/21 07:43 Resp 18 02/03/21 07:43 BP 164/85 H 02/03/21 07:43 Pulse Ox 94 02/03/21 07:43 Laboratory Results - last 24 hr 02/02/21 02/02/21 02/02/21 09:40 09:40 09:40 WBC 7.62 RBC 4.33 Hgb 13.0 Hct 40.8 MCV 94.2 MCH 30.0 MCHC 31.9 L RDW 14.5 Plt Count 278 MPV 12.0 H Immature Gran % 0.3 Neutrophils % 61.7 Lymphocytes % 26.4 Monocytes % 9.8 Eosinophils % 1.3 Basophils % 0.5 Nucleated RBC % 0 Absolute Neutrophils 4.70 Absolute Lymphocytes 2.01 Absolute Monocytes 0.75 Absolute Eosinophils 0.10 Absolute Basophils 0.04 D-Dimer Sodium 140 Potassium 4.1 Chloride 104 Carbon Dioxide 32.6 H Anion Gap 3.4 BUN 18 Creatinine 0.8 Estimated GFR/1.73 m2 >= 60.00 Glucose 91 Calcium 9.3 Magnesium 2.3 Total Bilirubin 0.3 AST 14 L ALT 29 Alkaline Phosphatase 82 Troponin I < 0.05 NT-Pro-B Natriuret Pep 440 H Total Protein 7.8 Albumin 3.6 Triglycerides Total Cholesterol LDL Cholesterol, Calc HDL Cholesterol Procalcitonin TSH Free T4 COVID-19 Source SARS-CoV-2 (PCR) 02/02/21 02/02/21 02/02/21 09:40 09:45 11:45 WBC RBC Hgb Hct MCV MCH MCHC RDW Plt Count MPV Immature Gran % Neutrophils % Lymphocytes % Monocytes % Eosinophils % Basophils % Nucleated RBC % Absolute Neutrophils Absolute Lymphocytes Absolute Monocytes Absolute Eosinophils Absolute Basophils D-Dimer Sodium Potassium Chloride Carbon Dioxide Anion Gap BUN Creatinine Estimated GFR/1.73 m2 Glucose Calcium Magnesium Total Bilirubin AST ALT Alkaline Phosphatase Troponin I < 0.05 NT-Pro-B Natriuret Pep Total Protein Albumin Triglycerides Total Cholesterol LDL Cholesterol, Calc HDL Cholesterol Procalcitonin < 0.1 TSH Free T4 COVID-19 Source Nasal/Nares SARS-CoV-2 (PCR) Negative 02/02/21 02/02/21 02/03/21 11:45 16:00 06:37 WBC RBC Hgb Hct MCV MCH MCHC RDW Plt Count MPV Immature Gran % Neutrophils % Lymphocytes % Monocytes % Eosinophils % Basophils % Nucleated RBC % Absolute Neutrophils Absolute Lymphocytes Absolute Monocytes Absolute Eosinophils Absolute Basophils D-Dimer Sodium 137 Potassium 4.1 Chloride 101 Carbon Dioxide 30.7 Anion Gap 5.3 BUN 22 H Creatinine 0.8 Estimated GFR/1.73 m2 >= 60.00 Glucose 95 Calcium 9.2 Magnesium 2.2 Total Bilirubin AST ALT Alkaline Phosphatase Troponin I < 0.05 NT-Pro-B Natriuret Pep Total Protein Albumin Triglycerides 191 H Total Cholesterol 252 H LDL Cholesterol, Calc 161 H HDL Cholesterol 53 Procalcitonin TSH 1.65 Free T4 1.10 COVID-19 Source SARS-CoV-2 (PCR) 02/03/21 06:37 WBC RBC Hgb Hct MCV MCH MCHC RDW Plt Count MPV Immature Gran % Neutrophils % Lymphocytes % Monocytes % Eosinophils % Basophils % Nucleated RBC % Absolute Neutrophils Absolute Lymphocytes Absolute Monocytes Absolute Eosinophils Absolute Basophils D-Dimer 3512 H Sodium Potassium Chloride Carbon Dioxide Anion Gap BUN Creatinine Estimated GFR/1.73 m2 Glucose Calcium Magnesium Total Bilirubin AST ALT Alkaline Phosphatase Troponin I NT-Pro-B Natriuret Pep Total Protein Albumin Triglycerides Total Cholesterol LDL Cholesterol, Calc HDL Cholesterol Procalcitonin TSH Free T4 COVID-19 Source SARS-CoV-2 (PCR)
[2021-02-03] MEDS: Omnipaque 350 MG/ML 100 ML BTL IJ (11:52)
[2021-02-03] MEDS: Normal Saline - Diluent 50 ML VIAL IV (11:53)
--- NOTE | 2021-02-03 12:00 | DI.CT_ITS ---
Exam(s) CT CHEST PE CTA EXAM: CT CHEST PE CTA CLINICAL HISTORY: hypoxia. TECHNIQUE: Imaging Protocol: Axial CT angiography was performed with multi-slice acquisition and mu lti-planar and/or 3D reconstructions. CONTRAST MATERIAL: Intravenous: Omnipaque 350 Contrast volume:100 mL FINDINGS: Tracheobronchial tree: Patent where visualized. Pulmonary parenchyma: There is a small peripheral infiltrate in the superior segment of the right low er lobe. Moderate paraseptal and centrilobular emphysema. There is scarring bilaterally in the ling lilly and lower lobes. There is associated bronchiectasis. Pulmonary Arteries: No evidence of filling defect to suggest pulmonary emboli. Mediastinum and Jerica: No dominant adenopathy or fluid collection. Visualized thyroid gland: Unremarkable. Pleura: No effusion or pneumothorax. Heart: The heart is not dilated. Coronary artery calcification. Small pericardial effusion. Aorta: Thoracic aorta non-dilated. There is suboptimal opacification of the aorta to assess for disse ction. No gross abnormalities appreciated. Atherosclerosis. Upper abdomen: Cholelithiasis. There is a stable cyst in the left lobe of the liver. There is dive rticulosis of the colon but no evidence of acute diverticulitis. The patient appears to be status po st splenectomy. Soft tissues: An incompletely imaged left lateral wall herniation is again noted. Bones: Within normal limits for the patient's age. IMPRESSION: 1. No evidence of a pulmonary embolus. 2. Small peripheral infiltrate in the right lower lobe. This may represent atelectasis or pneumonia. Please correlate clinically. 3. Paraseptal and centrilobular emphysema. 4. Bilateral basilar scarring with traction bronchiectasis. 5. Results of this exam have been verbally communicated with provider. RADIATION DOSE DELIVERED: 605.85mGy.cm Total DLP DATA REPOSITORY: All CT scans at this facility are submitted to the National Radiology Data Registry (NRDR) Dose Index Registry (DIR) with the [employer] (ACR). RADIATION OPTIMIZATION: All CT scans at this facility use at least one of these dose optimization te chniques: automated exposure control; mA and/or kV adjustment per patient size (includes targeted exa ms where dose is matched to clinical indication); or iterative reconstruction.
--- NOTE | 2021-02-03 14:19 | CHAPLAIN ---
Holli was sitting on the edge of the bed when I visited. The first thing she told me was that she wants to go home because she has things to do. Our conversation revealed that her daughter in March, and since then she has taken care of her two grandsons, 14 and 16, who enjoying school this semester, she said. The boys stay with Holli and her boyfriend after school, the spend the night with their dad, and spend weekends with Holli. Holli said she is usually very busy, she likes to keep busy, and she doesn't know how to just sit still, although she will sit long enough to do work puzzles or some crafts, but not often. Her own mother when she was 10, so Holli said she knows how it feels to have your mom when you're young. Her grandsons have been texting Holli's boyfriend to check on her. (Holli doesn't have a cell phone and doesn't want one.)
--- NOTE | 2021-02-03 14:43 | W.CARDCONSUL ---
Date of service: 02/03/21 Time of Service: 14:43 Assessment and Plan Assessment and plan (1) Shortness of breath: Status: Chronic (2) Cardiac pacemaker in situ: Status: Acute (3) CAD (coronary artery disease): Status: Chronic (4) Hypertension: Status: Chronic Assessment and plan: Overall I believe the patient's shortness of breath is primarily due to her chronic lung disease. At most, she might have mild diastolic congestive heart failure. This is difficult to prove. Her mildly elevated BNP is nonspecific. Chest x-ray and CT scan of the chest Show no evidence of vascular congestion. Her left ventricular systolic function is normal. Her EKG is normal I do not think additional cardiac testing is indicated as an inpatient Low-dose oral Lasix at discharge would be reasonable, either 20 or 40 mg We will be glad to follow-up in clinic, where she is already enrolled for pacemaker and monitoring Please do not hesitate to contact me if additional questions or concerns arise History of Present Illness History of Present Illness Chief Complaint: Shortness of breath Narrative: This 70-year-old woman presented to the hospital because of difficulty breathing. She reports that it began approximately 5 days prior to presentation and gradually got to the point where she could not breathe. In the emergency room she had evaluation which disclosed hypoxia and she was admitted. She has a history of a dual-chamber pacemaker placed in approximately 2012 for complete heart block. There is a remote history of coronary disease with stent placement 14 or 15 years ago. She had an open abdominal aortic aneurysm repair in 2009 complicated by hemorrhage and splenectomy. This has left her with a hernia She is a former smoker, who quit in 2007. She carries a diagnosis of COPD hypertension and dyslipidemia. Evaluation here in the hospital has included EKG (normal). Chest x-ray did not show any vascular congestion. She had an echocardiogram which showed normal left ventricular systolic function, no significant valvular disease. She just had a CT of the chest negative for pulmonary emboli. Again no vascular congestion was described. There were chronic changes and findings consistent with emphysema Patient reports that she is improved She is still wearing nasal oxygen She wants to go home Records from [facility] were reviewed on the computer. These include a diagnosis of CHF on a problem list but I can find no specific documentation of same Consults Consult date: 02/03/21 Requesting physician: Ramona Mae Review of Systems Cardiovascular Cardiovascular: Reports as per [facility] Medical History Allergic sinusitis Sleep disorder Surgical History AAA REPAIR 07/2009 BUNIONECTOMY X4 Ligation of fallopian tube BSO Pacemaker (~02/2013) Repair of inguinal hernia LEFT Splenomegaly (~07/2009) Stent placement (~06/2008) X 1 Family History Mother Essential hypertension Aortic aneurysm Father Heart disease SIBLINGS (8) Essential hypertension Aortic aneurysm Heart disease Hyperlipidemia Grandfather No problems noted. Grandfather No problems noted. Grandmother No problems noted. Grandmother No problems noted. Social History Smoking/Tobacco Use Status: Former Tobacco Use Quit Date: 01/29/08 Smoking risk assessment performed?: Yes Alcohol Intake: never Drug use: Never Substance use type: does not use Do you feel safe at home: Yes Do you feel safe in your relationship?: Yes Exam Narrative Exam Narrative: Well-developed well-nourished mild emotional distress, no physical distress, wearing nasal oxygen Neck Neck: full ROM Carotids: normal carotid upstroke and no bruits Resp Effort & Inspection: normal respiratory effort Auscultation: clear to auscultation bilaterally Cardio Jugular venous pressure: no JVD Rate: regular rate Rhythm: regular rhythm Heart Sounds: S1 normal and S2 normal Other: No murmur or gallop Extrem Other: Trace edema Results Last Vital Signs Temp 37.3 C 02/03/21 11:28 Pulse 64 02/03/21 11:28 Resp 18 02/03/21 11:28 BP 146/79 H 02/03/21 11:28 Pulse Ox 90 L 02/03/21 11:28 Labs Result diagrams: 02/02/21 09:40 02/03/21 06:37 Labs: Laboratory Results - last 24 hr 02/02/21 02/02/21 02/03/21 09:45 16:00 06:37 D-Dimer Sodium 137 Potassium 4.1 Chloride 101 Carbon Dioxide 30.7 Anion Gap 5.3 BUN 22 H Creatinine 0.8 Estimated GFR/1.73 m2 >= 60.00 Glucose 95 Calcium 9.2 Magnesium 2.2 Troponin I < 0.05 Triglycerides 191 H Total Cholesterol 252 H LDL Cholesterol, Calc 161 H HDL Cholesterol 53 SARS-CoV-2 (PCR) Negative 02/03/21 06:37 D-Dimer 3512 H Sodium Potassium Chloride Carbon Dioxide Anion Gap BUN Creatinine Estimated GFR/1.73 m2 Glucose Calcium Magnesium Troponin I Triglycerides Total Cholesterol LDL Cholesterol, Calc HDL Cholesterol SARS-CoV-2 (PCR)
[2021-02-03] MEDS: Enoxaparin 40 MG/0.4 ML SYR SC (16:06)
[2021-02-03] MEDS: Ibuprofen 200 MG TAB 400 MG PO (21:39)
[2021-02-03] MEDS: Doxazosin 2 MG TAB PO (21:39)
[2021-02-03] MEDS: Docusate Sodium 100 MG CAP PO (21:41)
[2021-02-04] VITALS (13 sets, daily range): BP systolic 116–144; BP diastolic 65–77; PULSE 61–89; RESP 16–18; TEMP 36.5–36.7; O2SAT 85–94
[2021-02-04] MEDS: Aspirin 81 MG CHEW PO (08:23)
[2021-02-04] MEDS: Furosemide 20 MG/2 ML VIAL IVP (08:24)
[2021-02-04] MEDS: Normal Saline Flush 10 ML SYR IVP (08:25)
--- NOTE | 2021-02-04 09:39 | PDOC.CMPRO ---
- If Service Date Differs Date of service: 02/04/21 Time of Service: 19:19 Care Management Progress Note S/O: Holli continues work up for symptoms. Per MD she may require additional imaging today, she continues to become SOB on exertion and her oxygen needs are rising. She requested a list of local PCPs which will be provided. CHF binder to be provided as well. CM continues to follow. A: 70 year old female admitted 02/02/21 for new onset CHF P: Holli will discharge home when ready per MD. She continues work up including additional imaging at this time. Anticipate she will return home when ready, follow up with her PCP and plan of care as prescribed, and transport with her significant other, Jeffrey. CM continues to follow.
[2021-02-04 10:00] LABS: Abs Immature Grans 0.02 10^3/uL (0.0-0.06); Absolute Basophil Count 0.03 10^3/uL (0.0-0.2); Absolute Eosinophil Count 0.13 10^3/uL (0.0-0.7); Absolute Lymphocyte Count 2.13 10^3/uL (1.2-3.4); Absolute Monocyte Count 0.76 10^3/uL (0.1-0.8); Absolute Neutrophil Count 4.86 10^3/uL (1.2-6.7); Basophils % 0.4; Eosinophils % 1.6; HCT 43.3 % (36.0-46.0); HGB 13.7 g/dL (11.2-15.7); Immature Grans % 0.3; Lymphocytes % 26.9; MCH 29.7 pg (27.0-33.0); MCHC 31.6 % (32.0-36.0); MCV 93.9 fL (80-95); MPV 12.1 fL (8.0-11.0); Monocytes % 9.6; Neutrophils % 61.2; Nucleated RBC 0 %; Platelet Count 277 10^3/uL (130-400); RBC 4.61 10^6/uL (3.93-5.22); RDW 14.6 % (11.7-14.6); RDW-SD 50.4 fL; WBC 7.93 10^3/uL (4.4-10.8)
[2021-02-04 10:04] LABS: Anion Gap 3.7 mmol/L (3-11); BUN 29 mg/dL (7-18); CO2 34.3 mmol/L (21.0-32.0); CREATININE 0.9 mg/dL (0.55-1.02); Calcium 9.4 mg/dL (8.5-10.1); Chloride 100 mmol/L (98-107); Glucose 103 mg/dL (74-106); Magnesium 2.3 mg/dL (1.8-2.4); Potassium 3.9 mmol/L (3.5-5.1); Sodium 138 mmol/L (136-145)
[2021-02-04] MEDS: Metoprolol CR 25 MG TABCR 37.5 MG PO (10:11)
[2021-02-04] MEDS: Lisinopril 20 MG TAB PO (10:11)
--- NOTE | 2021-02-04 15:35 | W.PM.PROGNOT ---
Date of Service Date of service: 02/04/21 Time of Service: 15:36 Assessment and Plan Assessment and plan (1) Acute on chronic diastolic heart failure: Status: Acute Assessment and plan: Switch lasix to PO. Continue to monitor I/O's, daily weights. O2 requirement is improving with diuresis. (2) Hypoxia: Status: Acute Assessment and plan: Due to above As above (3) Elevated d-dimer: Status: Acute Assessment and plan: We ruled out DVT/PE. Likely represents another inflammatory process in the body (4) Sleep disorder: Status: Chronic Assessment and plan: F/u as outpatient (5) DVT prophylaxis: Status: Acute Assessment and plan: SC enoxaparin (6) Discharge planning issues: Status: Acute Assessment and plan: Full code Anticipate discharge home tomorrow, hopefully without oxygen. However, we are initiating oxygen prescription in case the patient has now arrived at her new baseline. Subjective Subjective Interval history since last seen: Ms Green states she really wants to go home. She saturates 89% at rest on room air and 85% on exertion on room air. We discussed how she is already doing better than she did when she first came to the hospital and how she probably would be able to be discharged home tomorrow since she is almost off all oxygen. Denies chest pain, shortness of breath, nausea, dizziness. She does not feel sick, she states. Exam Narrative Exam Narrative: General: Pleasant tearful elderly female, sitting on the edge of the bed, crying HEENT: EOMI, MMM Heart: RRR, no m/r/g Lungs: faint crackles R base Abdomen: soft, nontender, nondistended Extremities: +1 BLE edema to ankles B Objective Last Vital Signs Temp 36.7 C 02/04/21 11:31 Pulse 63 02/04/21 11:31 Resp 18 02/04/21 11:31 BP 127/73 02/04/21 11:31 Pulse Ox 93 02/04/21 11:31 Laboratory Results - last 24 hr 02/04/21 02/04/21 09:47 09:47 WBC 7.93 RBC 4.61 Hgb 13.7 Hct 43.3 MCV 93.9 MCH 29.7 MCHC 31.6 L RDW 14.6 Plt Count 277 MPV 12.1 H Immature Gran % 0.3 Neutrophils % 61.2 Lymphocytes % 26.9 Monocytes % 9.6 Eosinophils % 1.6 Basophils % 0.4 Nucleated RBC % 0 Absolute Neutrophils 4.86 Absolute Lymphocytes 2.13 Absolute Monocytes 0.76 Absolute Eosinophils 0.13 Absolute Basophils 0.03 Sodium 138 Potassium 3.9 Chloride 100 Carbon Dioxide 34.3 H Anion Gap 3.7 BUN 29 H Creatinine 0.9 Estimated GFR/1.73 m2 >= 60.00 Glucose 103 Calcium 9.4 Magnesium 2.3
[2021-02-04] MEDS: Furosemide 40 MG TAB PO (16:26)
[2021-02-04] MEDS: Enoxaparin 40 MG/0.4 ML SYR SC (16:26)
--- NOTE | 2021-02-04 18:47 | NUR.NOTE ---
Nursing Note:patients O2 was dropped to 1L and her sats 93-94% and then she sent on room air and dropped to 86% (she was eating and has just walked from bathroom) so she was put back on 1L NC
[2021-02-04] MEDS: Ibuprofen 200 MG TAB 400 MG PO (21:02)
[2021-02-04] MEDS: Docusate Sodium 100 MG CAP PO (21:02)
[2021-02-04] MEDS: Doxazosin 2 MG TAB PO (21:03)
[2021-02-05 03:27] VITALS: BP 126/70; PULSE 72; RESP 17; TEMP 36.9; O2SAT 92
[2021-02-05 07:10] VITALS: BP 132/71; PULSE 76; RESP 16; TEMP 36.8; O2SAT 93
[2021-02-05 08:08] VITALS: PULSE 67
[2021-02-05] MEDS: Lisinopril 20 MG TAB PO (08:30)
[2021-02-05] MEDS: Furosemide 40 MG TAB PO (08:30)
[2021-02-05] MEDS: Aspirin 81 MG CHEW PO (08:30)
[2021-02-05] MEDS: Metoprolol CR 25 MG TABCR 37.5 MG PO (08:30)
[2021-02-05 08:55] LABS: Anion Gap 3.9 mmol/L (3-11); BUN 25 mg/dL (7-18); CO2 34.1 mmol/L (21.0-32.0); CREATININE 0.8 mg/dL (0.55-1.02); Calcium 9.3 mg/dL (8.5-10.1); Chloride 100 mmol/L (98-107); Glucose 90 mg/dL (74-106); Magnesium 2.5 mg/dL (1.8-2.4); Potassium 4.2 mmol/L (3.5-5.1); Sodium 138 mmol/L (136-145)
[2021-02-05 11:17] VITALS: BP 144/75; PULSE 65; RESP 18; TEMP 36.7; O2SAT 90
[2021-02-05 13:15] VITALS: PULSE 68; PULSE 74; PULSE 78; RESP 18; RESP 24; O2SAT 86; O2SAT 89; O2SAT 94
--- NOTE | 2021-02-05 15:39 | W.PM.PROGNOT ---
Date of Service Date of service: 02/05/21 Time of Service: 15:39 Assessment and Plan Assessment and plan (1) Acute on chronic diastolic heart failure: Status: Suspected Assessment and plan: Patient had mildly elevated proBNP on admission in the 400s which is nonspecific. CT scan of her chest demonstrated no pulmonary embolus but showed Paraseptal and centrilobular emphysema along with bilateral basilar scarring and traction bronchiectasis. Along with a possible small peripheral infiltrate in the superior segment of the right lower lobe. Echocardiogram showed mild concentric LVH with normal ejection fraction of 60% with no wall motion abnormalities and normal right ventricular size and normal right ventricular systolic function. She had nonhemodynamically significant valvular disease with sclerotic aortic valve without stenosis or regurgitation and mitral annular calcification with trace to mild mitral vegetation and normal tricuspid valve with trace regurgitation. Based on this I think that there is minimal evidence for diastolic heart failure. I think the patient can use low-dose furosemide 20 mg 2 or 3 times a week on an as-needed basis if she is showing increasing pedal edema or weight gain. I think her exertional dyspnea and hypoxemia secondary to her underlying lung disease. I recommend that she follow-up with pulmonary service as an outpatient and get a repeat amatory pulse oximetry as an outpatient along with pulmonary function test and ABG. (2) Hypoxia: Status: Acute Assessment and plan: Likely secondary to underlying lung disease. (3) Elevated d-dimer: Status: Acute Assessment and plan: We ruled out DVT/PE. Likely represents another inflammatory process in the body (4) Sleep disorder: Status: Chronic Assessment and plan: F/u as outpatient. Needs outpatient polysomnogram (5) DVT prophylaxis: Status: Acute Assessment and plan: SC enoxaparin (6) Discharge planning issues: Status: Acute Assessment and plan: Discharge home today. Follow-up with respiratory therapy for PFTs ABG and repeat pulse oximetry next week and follow-up with comic book writer as an outpatient in the next couple weeks. Subjective Subjective Interval history since last seen: Patient denies any shortness of breath or chest pain. She had an amatory pulse oximetry study done today. Her low saturation dropped to 89%. Her preambulation oxygen saturation was 94% and post recovery was 94%. Patient denies any sputum production. Review of her echocardiogram showed no evidence for left ventricular right ventricular systolic dysfunction. Chest CT shows paraseptal and centrilobular emphysema and bilateral basilar scarring with traction bronchiectasis. Patient's hemodynamics her echocardiogram did not fit the criteria for diastolic dysfunction. Per Dr. Holli Lorenzo she feels that the patient's dyspnea is primarily secondary to her pulmonary disease rather than due to any congestive heart failure. She indicated that if the patient goes home on a diuretic to use a low dose. I spoke with Holli Green about this and recommended that she monitor her weight daily and if she sees a sudden weight gain of 2 pounds or more in 24 hours then this is probably fluid retention and she should take the diuretic. I will have her take furosemide 20 mg every Sunday and Sunday and recheck her BMP in a week. If she has a sudden weight gain of 2 pounds or more in 24. She should take the furosemide daily for 2 or 3 days until she loses the weight. Also recommend that she have her PCP refer her to a comic book writer. Exam Narrative Exam Narrative: Elderly white female who is alert and oriented person place time circumstance sitting on a bedside she is very tearful and indicated that she needs to get out of the hospital. Lungs are clear to auscultation no wheezes or rhonchi. Heart regular rate and rhythm without murmur rub or gallop Neck veins are flat Abdomen soft nontender nondistended Lower extremities with trace of edema over the ankles and feet Objective Last Vital Signs Temp 36.7 C 02/05/21 11:17 Pulse 65 02/05/21 11:17 Resp 18 02/05/21 11:17 BP 144/75 H 02/05/21 11:17 Pulse Ox 90 L 02/05/21 11:17 Laboratory Results - last 24 hr 02/05/21 07:50 Sodium 138 Potassium 4.2 Chloride 100 Carbon Dioxide 34.1 H Anion Gap 3.9 BUN 25 H Creatinine 0.8 Estimated GFR/1.73 m2 >= 60.00 Glucose 90 Calcium 9.3 Magnesium 2.5 H
[2021-02-05] MEDS: Enoxaparin 40 MG/0.4 ML SYR SC (15:49)
--- NOTE | 2021-02-05 15:55 | PDOC.CMDIS ---
- If Service Date Differs Date of service: 02/05/21 Time of Service: 15:55 LACE Index Scoring Tool - Questions: Length of Stay (in days): 3 Acuity (Admit via E.D.?): Yes Comorbidities: Congestive Heart Failure E.D. Visits: 1 - Answers: Total Score: 9 Risk of Readmission: Low Risk Care Management Discharge Reason for Hospitalization: New onset CHF. Discharge Plan: Holli will discharge home when ready per MD, follow up with her PCP, Pulmonology and her plan of care as prescribed. She will transport with her significant other, Jeffrey. Patient/Family Education Needs: Review discharge instructions, discuss Ask Me Three.
--- NOTE | 2021-02-05 16:05 | W.PM.DS.N ---
Date of service: 02/05/21 Time of Service: 16:05 DS: Diagnosis Discharge Diagnosis (1) Acute on chronic diastolic heart failure: Status: Suspected Asessment and Plan: patient presented w/ symptoms of progressive exertional dyspnea that has been worsened climbing stairs in her home. Reports shortness of breath while lying flat, some mild peripheral edema, and hypoxia on room air with sats in the 80's on room air.Workup in the ER included labs, and CXR, and EKG. Labs showed normal WBC of 7600, neg. nasal swab PCR for Covid -19 and normal troponin I levels and minimally elevated BNP of 440 and normal procalcitonin of <0.1. CXR demonstrated normal pulmonary vasculature but questionable increased interstitial lung markings in right lung base c/w atelectasis vs pneumonia. Subsequent CT chest was done on 02/03 and demonstrated: IMPRESSION: 1. No evidence of a pulmonary embolus. 2. Small peripheral infiltrate in the right lower lobe. This may represent atelectasis or pneumonia. Please correlate clinically. 3. Paraseptal and centrilobular emphysema. 4. Bilateral basilar scarring with traction bronchiectasis. Patient was treated w/ lasix 20 mg IVP w/ UO of 850 mL. Her acute hypoxemia was believed to be due to combination of bronchospasm and acute on chronic diastolic CHF. Subsequent echocardiogram was performed w/ the results listed below: Conclusion Mild concentric left ventricular hypertrophy. Estimated ejection fraction is 60%. Wall motion is normal Normal right ventricular size and systolic function The left atrium is mildly dilated. The right atrium is borderline dilated Sclerotic trileaflet aortic valve without stenosis or regurgitation Mitral annular calcification. Trace to mild mitral regurgitation Normal tricuspid valve with trace regurgitation Normal pulmonic valve Dilated ascending aorta measuring 3.[address] Holli Lorenzo, ice resurfacing machine operators was consulted and her impression was that: Assessment and plan: Overall I believe the patient's shortness of breath is primarily due to her chronic lung disease. At most, she might have mild diastolic congestive heart failure. This is difficult to prove. Her mildly elevated BNP is nonspecific. Chest x-ray and CT scan of the chest Show no evidence of vascular congestion. Her left ventricular systolic function is normal. Her EKG is normal I do not think additional cardiac testing is indicated as an inpatient Low-dose oral Lasix at discharge would be reasonable, either 20 or 40 mg We will be glad to follow-up in clinic, where she is already enrolled for pacemaker and monitoring Please do not hesitate to contact me if additional questions or concerns arise Note that her diastolic parameters on her echo did not support a diagnosis of diastolic HF. Nevertheless she did improve w/ diuretics. Therefore she was discharged home on low dose lasix three times per week. (2) Hypoxia: Status: Chronic Asessment and Plan: patient needs follow up on her exertional dyspnea including pulmonary consult, PFT and repeat ambulatory pulse oximetry test. She had an ambulatory pulse oximetry done while inpatient. Her test showed: resting SPO2 of 94% on RA but dropped to 86% w/ ambulation of 200 ft and 5 minutes of walking but quickly recovered to 94% within one minute. A repeat study is suggested to be done as outpatient. Her CT findings of her chest indicate that she has underlying COPD (emphysema) and bronchiectasis which need further evaluation by pulmonary. (3) Elevated d-dimer: Status: Acute Asessment and Plan: patient was placed on enoxaparin 40 mg SC daily throughout her hospitalization. PE was ruled out by CTA of the chest. Venous duplex study of both legs was negative. (4) Sleep disorder: Status: Chronic Asessment and Plan: patient needs followup w/ pulmonary to address her longterm sleep disorder (5) DVT prophylaxis: Status: Resolved (6) Discharge planning issues: Status: Resolved Asessment and Plan: patient was discharged home w/ no further home health needs identified. She should follow up w/ her PCP and she should get an appointment w/ Dr. Danielle for pulmonary consultation. RT indicated that they would follow up w/ the patient to be sure that she keeps her follow up PFT and repeat ambulatory pulse oximetry tests. Discharge Plan Disposition Patient Disposition: HOME Condition: Improving Discharge Details Reason For Visit: New onset CHF Admit Date/Time: 02/02/21 12:46 Admit Provider: Chrissy Tariq Attending Provider: Chrissy Tariq Primary Care Provider: Temo Beauchamp Home Meds and New Rx's Prescriptions: New furosemide 20 mg tablet See Rx Instructions .ROUTE .COMPLEX Qty: 10 RF: 0 Continued lisinopril 40 mg tablet 40 mg PO DAILY Qty: 90 RF: 3 albuterol sulfate [ProAir HFA] 90 mcg/actuation HFA aerosol inhaler 1 - 2 puff Inhalation Q4H PRN Qty: 1 RF: 2 aspirin [Aspirin Low-Strength] 81 MG tablet,chewable 81 mg PO DAILY RF: 0 ibuprofen 200 MG tablet 2 tab PO HS RF: 0 nitroglycerin 0.4 mg tablet, sublingual 0.4 mg sublingual Q5-15M PRN (Reason: chest pain) Qty: 25 RF: 0 albuterol sulfate 2.5 mg /3 mL (0.083 %) solution for nebulization 2.5 mg Inhalation q4-6 h prn Qty: 1 RF: 4 metoprolol succinate 25 mg tablet extended release 24 hr 37.5 mg PO DAILY Qty: 135 RF: 4 doxazosin 2 mg tablet 2 mg PO HS RF: 0 Discharge Instructions Instructions: COPD (Chronic Obstructive Pulmonary Disease) (DC), How Your Lungs Work (DC), Energy Conservation Techniques (DC), Dyspnea Scale and Exercise (ED) Additional Instructions: weigh yourself daily, if you have a weight gain of 2 lbs or more then you should take your furosemide. If you end up taking the furosemide daily for more than 3 days in a row then call your PCP and have your labs checked to monitor your kidney function and electrolytes Stand Alone Forms: Nursing Discharge Form Referrals: Benita Danielle MD [ [facility] STAFF PHYSICIAN] - (you should hear from the office for follow up visit. if you do not hear within the next 3 to 5 days then call respiratory care office at [facility]) Temo Beauchamp MD [Primary Care Provider] - (call the office on Sunday for follow up visit) Activity:: Activity as Tolerated Equipment/Supplies:: No Equipment Needed Diet:: Normal Diet Discharge Orders Discharge Orders: Discharge Order (Routine); Ordered 02/05/21 Ordered By: Prosper Corea Ambulatory Orders: Basic Metabolic Panel (Routine) Timeframe: 1 Week Facility: [facility] - Location: Laboratory Outpatient Ordered By: Prosper Marie PFT (Soso/DLCO/Volumes) (Outpt) (ONCE) Timeframe: [id number] Facility: [facility] - Location: Respiratory Therapy Ordered By: Prosper Marie SaO2 w/ Exercise (Outpt) (ONCE) Timeframe: 20210212 Facility: [facility] - Location: Respiratory Therapy Ordered By: Prosper Marie Discharge Data Discharge Date/Time-TO BE ENTERED AT DEPARTURE: 02/05/21 17:28 DS: Summary Time Spent with Patient providing and/or coordinating discharge services: Less than 30 minutes Status at Discharge Functional status at discharge: independent ambulation Overall status at discharge: patient is progressing back to baseline Mental Status: mental status grossly normal Speech and Movement: speech and movement normal Mood: congruent mood Affect: normal affect Exam Narrative Exam Narrative: Elderly white female who is alert and oriented person place time circumstance sitting on a bedside she is very tearful and indicated that she needs to get out of the hospital. Lungs are clear to auscultation no wheezes or rhonchi. Heart regular rate and rhythm without murmur rub or gallop Neck veins are flat Abdomen soft nontender nondistended Lower extremities with trace of edema over the ankles and feet Psych Mental Status: mental status grossly normal Speech and Movement: speech and movement normal Mood: congruent mood Affect: normal affect DS: Data Vitals/I&O Vitals and I&O: Vital Signs Temperature 36.7 C 02/05/21 11:17 Temperature Source Tympanic 02/05/21 11:17 Pulse 65 02/05/21 11:17 Pulse Rhythm Regular 02/05/21 07:10 Pulse 68 02/02/21 12:31 Respiratory Rate 18 02/05/21 11:17 Respiratory Effort 02/05/21 07:10 Respiratory Depth Normal 02/05/21 07:10 Respiratory Pattern Normal 02/05/21 07:10 Blood Pressure 144/75 H 02/05/21 11:17 Blood Pressure Mean 82 02/02/21 12:31 Blood Pressure Position Sitting 02/02/21 12:17 Pulse Oximetry 90 L 02/05/21 11:17 Oxygen Delivery Method Nasal Cannula 02/05/21 11:17 Oxygen Flow Rate 1 02/05/21 11:17 Pain Level 0 02/05/21 11:17 Comment 02/03/21 23:25 Intake & Output 02/04/21 02/05/21 02/05/21 23:59 11:59 23:59 Intake Total 440 / 440 840 / 840 Output Total 900 / 2600 1400 / 1400 Balance -460 / -2160 -560 / -560 Intake: Oral 440 / 440 840 / 840 Output: Urine 900 / 2600 1400 / 1400 Other: Urine Color Yellow Light Bina Urine Appearance Clear Cloudy Urine Odor Normal Normal Voiding Methods Toilet Toilet Data Completed and Pending Labs on day of discharge: Labs from last 24 hours 02/05/21 07:50 Sodium 138 Potassium 4.2 Chloride 100 Carbon Dioxide 34.1 H Anion Gap 3.9 BUN 25 H Creatinine 0.8 Estimated GFR/1.73 m2 >= 60.00 Glucose 90 Calcium 9.3 Magnesium 2.5 H [facility] Medical History Allergic sinusitis Sleep disorder Surgical History AAA REPAIR 07/2009 BUNIONECTOMY X4 Ligation of fallopian tube BSO Pacemaker (~02/2013) Repair of inguinal hernia LEFT Splenomegaly (~07/2009) Stent placement (~06/2008) X 1 Family History Mother Essential hypertension Aortic aneurysm Father Heart disease SIBLINGS (8) Essential hypertension Aortic aneurysm Heart disease Hyperlipidemia Grandfather No problems noted. Grandfather No problems noted. Grandmother No problems noted. Grandmother No problems noted. Social History Smoking/Tobacco Use Status: Former Tobacco Use Quit Date: 01/29/08 Smoking risk assessment performed?: Yes Alcohol Intake: never Drug use: Never Substance use type: does not use Do you feel safe at home: Yes Do you feel safe in your relationship?: Yes
[2021-02-05 16:14] VITALS: BP 156/76; PULSE 75; RESP 16; TEMP 37.1
== END 2021-02-05 17:28 | disposition home or self-care (01) | DRG 291 ==
LOC: ER 13:03 → MS 14:18
PROVIDERS: Nurse Practitioner Acute Care; Admitting Provider Internal Medicine; Emergency Provider Emergency Medicine; PCP Family Medicine; Visit Provider Internal Medicine
DX: I50.33 Acute on chronic diastolic (congestive) heart failure; Z95.0 Presence of cardiac pacemaker; I11.0 Hypertensive heart disease with heart failure; I25.10 Atherosclerotic heart disease of native coronary artery without angina pectoris; R09.02 Hypoxemia; R60.0 Localized edema; Z20.822 Contact with and (suspected) exposure to COVID-19; J44.9 Chronic obstructive pulmonary disease, unspecified; E78.5 Hyperlipidemia, unspecified; Z87.891 Personal history of nicotine dependence; G47.9 Sleep disorder, unspecified
CPT/HCPCS: 36415; 71275; 80048; 80053; 80061; 84145; 87635; 90662; 93005; 93306; 94618; 94640; 96372; 96374; 99221; 99285; J1650; 71045; 83735; 83880; 84439; 84443; 84484; 85025; 85379; 93010; 93970; 99222; 99232; 99238; 99284; J1941; J3490; J7613; J7620

== ENCOUNTER → 2021-02-03 11:23 | Outpatient (BNVA) | payer MEDICARE, SELFPAY | PROVIDERS: PCP Family Medicine; Referring Provider Family Medicine; Visit Provider Internal Medicine Cardiovascular Disease | DX: R69 Illness, unspecified (principal) ==

== ENCOUNTER → 2021-02-16 09:49 | Outpatient (BNVA) | payer MEDICARE, SELFPAY | PROVIDERS: PCP Family Medicine; Referring Provider Family Medicine; Visit Provider Physician Assistant | DX: I44.2 Atrioventricular block, complete (principal); Z45.018 Encounter for adjustment and management of other part of cardiac pacemaker | CPT/HCPCS: 93280; 99212 ==

== ENCOUNTER 2021-08-09 03:40 | Outpatient (CLI) | payer MEDICARE, SELFPAY ==
[2021-08-09] MEDS: Albuterol HFA 18 GM 200 PUFF INH IH (11:26)
[2021-08-09] MEDS: Inhaler, Assist Device 1 EACH MC (11:27)
--- NOTE | 2021-08-12 15:25 | W.PFT ---
Date of service: 08/09/21 Time of Service: 10:12 Pulmonary Function Test Result Requesting Provider Shashi Indications: COPD Impression 6MWT Distance walked: 600 feet Baseline oxygen: 90% on room air 4 LPM required to maintain saturations >88% Clinical Correlation therefore is recommended.
== END 2021-08-09 03:41 | disposition home or self-care (01) ==
LOC: RT 03:41
PROVIDERS: PCP Family Medicine; Visit Provider Student in an Organized Health Care Education/Training Program
DX: J84.10 Pulmonary fibrosis, unspecified (principal); J43.9 Emphysema, unspecified; Z87.891 Personal history of nicotine dependence; Z57.5 Occupational exposure to toxic agents in other industries; R94.2 Abnormal results of pulmonary function studies
CPT/HCPCS: 94060; 94618; 94726; 94729

== ENCOUNTER → 2021-08-17 09:52 | Outpatient (BNVA) | payer MEDICARE, SELFPAY | PROVIDERS: PCP Family Medicine; Visit Provider Physician Assistant | DX: Z95.0 Presence of cardiac pacemaker (principal); I44.2 Atrioventricular block, complete | CPT/HCPCS: 93280; 99212 ==

== ENCOUNTER 2021-10-25 11:01 | Emergency (ER) | payer MEDICARE, SELFPAY ==
[2021-10-25] VITALS (18 sets, daily range): BP systolic 181–207; BP diastolic 79–90; PULSE 61–78; RESP 8–23; TEMP 36.3; O2SAT 87–95
--- NOTE | 2021-10-25 11:00 | DI.RAD_ITS ---
Exam(s) XR CHEST 2V PA LATERAL EXAM: XR CHEST 2V PA LATERAL CLINICAL HISTORY: Hx COPD, Weakness, TECHNIQUE: 2D digital imaging was performed of the chest. Two images were obtained. PA and lateral views were obtained. COMPARISON: CR XR CHEST 2V PA LATERAL from 04/10/2018 FINDINGS: MEDIASTINUM: Normal. HEART: Normal. PULMONARY VASCULATURE: Normal. LUNGS: Clear. PLEURAL SPACE: No pleural effusion or pneumothorax. BONE:Within normal limits for the patient's age. OTHER FINDINGS:The transvenous pacing wires are stable in position. IMPRESSION: No acute pulmonary findings. DATA REPOSITORY: RADIATION DOSE DELIVERED:
--- NOTE | 2021-10-25 11:00 | RT.EKG_ITS ---
APPROVED REPORT Exam: Resting ECG Reason for Exam: Weakness Patient Location: E HR:67 bpm ECG Measurements Heart Rate 67 AXIS IN 215 P 39 QRSd 105 QRS 40 QT 427 T 16 QTc 451 Conclusion Sinus rhythm...normal P axis, V-rate 60- 99 Borderline prolonged IN interval...IN >212, V-rate 50- 90. Sinus. Normal axis. No STEMI. I have reviewed and interpreted ECG and agree with software generated interpretation.
--- NOTE | 2021-10-25 11:00 | DI.CT_ITS ---
Exam(s) CT HEAD WO EXAM: CT HEAD WO CLINICAL HISTORY: Blurry vision, Headache. TECHNIQUE: Imaging Protocol: Axial computed tomography images with coronal and sagittal reformatted images were created and reviewed COMPARISON: CT HEAD WITHOUT CONTRAST from 03/22/2013 FINDINGS: Ventricles and Extra axial spaces: Normal in size and morphology for the patient's age. Hemorrhage: None. Cerebral parenchyma: No acute territorial infarct is present. Areas of decreased attenuation are see n in the white matter likely reflecting chronic microvascular ischemic disease. Midline shift: None. Brainstem/Cerebellum: Normal. Calvarium: Normal. Visualized Paranasal sinuses/Mastoids: Clear. Soft Tissues: Unremarkable. IMPRESSION: 1. No acute intracranial process. 2. Results of this exam have been verbally communicated with provider. RADIATION DOSE DELIVERED: 795.96mGy.cm Total DLP DATA REPOSITORY: All CT scans at this facility are submitted to the National Radiology Data Registry (NRDR) Dose Index Registry (DIR) with the [employer] (A[employer]). RADIATION OPTIMIZATION: All CT scans at this facility use at least one of these dose optimization te chniques: automated exposure control; mA and/or kV adjustment per patient size (includes targeted exa ms where dose is matched to clinical indication); or iterative reconstruction.
--- NOTE | 2021-10-25 11:09 | W.ED.GENAD ---
Discharge Plan Disposition Patient Disposition: HOME Condition: Stable Discharge Details Clinical Impression: Acute UTI, Anxiety Primary Care Provider: Temo Beauchamp ED Provider: Eusebia Quiñonez Home Meds and New Rx's Prescriptions: New cephalexin 500 mg tablet 500 mg PO BID 7 Days Qty: 14 0RF Rx Instructions: Take twice daily with Yogurt or Probiotic Continued furosemide 20 mg tablet See Rx Instructions .ROUTE .COMPLEX Qty: 48 3RF Rx Instructions: 20 mg orally q MWFSun prn weight gain metoprolol succinate 50 mg tablet extended release 24 hr 50 mg PO DAILY Qty: 90 3RF aspirin [Aspirin Low-Strength] 81 MG tablet,chewable 81 mg PO DAILY ibuprofen 200 MG tablet 2 tab PO HS nitroglycerin 0.4 mg tablet, sublingual 0.4 mg sublingual Q5-15M PRN (Reason: chest pain) Qty: 25 0RF Rx Instructions: take as needed q 5 mins for c/p until gone if take 3 pills and pain persists, call albuterol sulfate [ProAir HFA] 90 mcg/actuation HFA aerosol inhaler 1 - 2 puff Inhalation Q4H PRN Qty: 1 2RF albuterol sulfate 2.5 mg /3 mL (0.083 %) solution for nebulization 2.5 mg Inhalation q4-6 h prn Qty: 1 4RF (DME) POCKET CHAMBER Spacer See Rx Instructions .Route Qty: 1 0RF Rx Instructions: As directed lisinopril 40 mg tablet 40 mg PO DAILY Qty: 90 3RF Discharge Instructions Instructions: Urinary Tract Infection in Women (ED), Hypertension (ED) Additional Instructions: At this time the majority of your work-up is within normal limits. No evidence of heart attack or stroke. I am concerned regarding your blood pressure please discuss your blood pressure readings with your primary care provider. Please take your medications as prescribed. You do have evidence of a urinary tract infection you are given the first antibiotic here in the department. This could also be causing your symptoms. Take the antibiotic twice daily as prescribed with yogurt or a probiotic. Follow up with primary care provider in 3-5 days. Return to ED sooner if any worsening or concerns. Increase oral fluids. Referrals: Temo Beauchamp MD [Primary Care Provider] - 5 days Discharge Data Discharge Date/Time-TO BE ENTERED AT DEPARTURE: 10/25/21 13:38 Medical Decision Making 70-year-old female presents to the ER via EMS with a chief complaint of acute onset of blurry vision while driving. Per EMS patient pulled over the side of the road became nauseous upon arrival to the scene the blurry vision had resolved. Patient reports that she has had a headache which has been ongoing since this weekend. She denies any chest pain. She does report chronic shortness of breath due to her COPD. She denies any vomiting or diarrhea but does endorse nausea. She also reports generalized weakness. She is hypertensive upon arrival and per EMS report she has been somewhat noncompliant with her blood pressure medications and will take them for couple months and then take her self off of them. Past medical history includes COPD, anxiety, hyperlipidemia, hypertension, CAD,, history of aortic aneurysm repair, emphysema, CHF and cardiac Medtronic pacemaker for sinus node dysfunction. Pacemaker was last checked July 2021. She was also given Zofran 4 mg ODT by EMS prior to arrival. 1114: EKG was reviewed by Dr. Saima Bui ER attending, old EKG available for review. Please see her official report. Labs are largely at baseline. No leukocytosis, proBNP is at 402 which is improved from previous result. Initial troponin within normal limits. EKG shows no STEMI. We will have staff interrogate pacemaker. Patient has been tolerating p.o. fluids without difficulty. CT head without contrast within normal limits some generalized microvascular changes probably due to blood pressure. Patient has no focal neurodeficit. 1242: Pacemaker was interrogated, no episode recorded. Last interrogation was August 25. Remaining longevity is approximately 3 years. 1250: Patient reevaluation she is sitting up in bed sipping on some water family is at bedside she reports feeling much better. She denies having COVID few weeks ago denies being noncompliant with her blood pressure medications I did discuss the labs with her and CT results at this time urine is pending. She verbalizes understanding. Urinalysis shows positive nitrites, 10-20 WBCs, trace blood small leukocytes. Culture is pending at this time. We will place patient on cephalexin. Patient improved prior to discharge. This text was generated using [employer] system, please disregard any oddities of phrase or misspellings. Imaging Data Radiologic Study: Imaging: CT Scan Radiologist's impression: EXAM: CT HEAD WO CLINICAL HISTORY: Blurry vision, Headache. TECHNIQUE: Imaging Protocol: Axial computed tomography images with coronal and sagittal reformatted images were created and reviewed COMPARISON: CT HEAD WITHOUT CONTRAST from 03/22/2013 FINDINGS: Ventricles and Extra axial spaces: Normal in size and morphology for the patient's age. Hemorrhage: None. Cerebral parenchyma: No acute territorial infarct is present. Areas of decreased attenuation are seen in the white matter likely reflecting chronic microvascular ischemic disease. Midline shift: None. Brainstem/Cerebellum: Normal. Calvarium: Normal. Visualized Paranasal sinuses/Mastoids: Clear. Soft Tissues: Unremarkable. IMPRESSION: 1. No acute intracranial process. 2. Results of this exam have been verbally communicated with provider. Lab Data Lab results reviewed: Yes I reviewed the patient's lab results. Labs: Laboratory Tests Range/Units 10/25/21 10/25/21 11:21 11:21 WBC (4.4-10.8) 10^3/uL 9.41 RBC (3.93-5.22) 10^6/uL 4.35 Hgb (11.2-15.7) g/dL 13.3 Hct (36.0-46.0) % 40.5 MCV (80-95) fL 93 MCH (27.0-33.0) pg 30.6 MCHC (32.0-36.0) % 32.8 RDW (11.7-14.6) % 14.2 Plt Count (130-400) 10^3/uL 240 MPV (8.0-11.0) fL 12.9 H Immature Gran % 0.3 Neutrophils % 60.9 Lymphocytes % 28.5 Monocytes % 8.7 Eosinophils % 1.1 Basophils % 0.5 Nucleated RBC % (0.0-0.3) % 0.0 Absolute Neutrophils (1.2-6.7) 10^3/uL 5.73 Absolute Lymphocytes (1.2-3.4) 10^3/uL 2.68 Absolute Monocytes (0.1-0.8) 10^3/uL 0.82 H Absolute Eosinophils (0.0-0.7) 10^3/uL 0.10 Absolute Basophils (0.0-0.2) 10^3/uL 0.05 Sodium (136-145) mmol/L 137 Potassium (3.5-5.1) mmol/L 3.6 Chloride (98-107) mmol/L 102 Carbon Dioxide (21.0-32.0) mmol/L 27.6 Anion Gap (3-11) mmol/L 7.4 BUN (7-18) mg/dL 22 H Creatinine (0.55-1.02) mg/dL 0.7 Estimated GFR/1.73 m2 (mL/min/1.73m2) >= 60.00 Glucose (74-106) mg/dL 111 H Calcium (8.5-10.1) mg/dL 9.2 Magnesium (1.8-2.4) mg/dL 2.1 Total Bilirubin (0.2-1.0) mg/dL 0.4 AST (15-37) U/L 16 ALT (14-59) U/L 22 Alkaline Phosphatase (46-116) U/L 69 Troponin I (<or=60) ng/L < 50 NT-Pro-B Natriuret Pep (<300) pg/mL 402 H Total Protein (6.4-8.2) g/dL 7.4 Albumin (3.4-5.0) g/dL 3.6 HPI General Mode of arrival: EMS. Date/Time Provider Initiated Documentation: 10/25/21 11:10. Limitations to Documentation: no limitations. Information obtained by: patient, EMS, RN notes reviewed and old records reviewed. HPI Narrative: 70-year-old female presents to the ER via EMS with a chief complaint of acute onset of blurry vision while driving. Per EMS patient pulled over the side of the road became nauseous upon arrival to the scene the blurry vision had resolved. Patient reports that she has had a headache which has been ongoing since this weekend. She denies any chest pain. She does report chronic shortness of breath due to her COPD. She denies any vomiting or diarrhea but does endorse nausea. She also reports generalized weakness. She is hypertensive upon arrival and per EMS report she has been somewhat noncompliant with her blood pressure medications and will take them for couple months and then take her self off of them. Past medical history includes COPD, anxiety, hyperlipidemia, hypertension, CAD,, history of aortic aneurysm repair, emphysema, CHF and cardiac Medtronic pacemaker for sinus node dysfunction. Pacemaker was last checked July 2021. She was also given Zofran 4 mg ODT by EMS prior to arrival. Related Data Home Medications Medication Instructions Recorded Confirmed aspirin 81 mg chewable tablet 81 mg PO DAILY 09/16/12 10/25/21 (Aspirin Low-Strength) ibuprofen 200 mg tablet 2 tab PO HS 12/29/15 10/25/21 nitroglycerin 0.4 mg sublingual 0.4 mg sublingual Q5-15M PRN chest 05/29/20 10/25/21 tablet pain #25 tabs furosemide 20 mg tablet See Rx Instructions .Route 02/22/21 10/25/21 .COMPLEX #48 tabs albuterol sulfate 2.5 mg/3 mL 2.5 mg (3 mL) inhalation q4-6 h 07/04/21 10/25/21 (0.083 %) solution for nebulization prn ##1 albuterol sulfate 90 mcg/actuation 1 - 2 puff inhalation Q4H PRN ##1 07/04/21 10/25/21 aerosol inhaler (ProAir HFA) inhalational spacing device #1 ea 07/25/21 10/25/21 (POCKET CHAMBER spacer) metoprolol succinate 50 mg 50 mg PO DAILY #90 tabs 08/02/21 10/25/21 tablet,extended release 24 hr lisinopril 40 mg tablet 40 mg PO DAILY #90 tabs 09/05/21 10/25/21 cephalexin 500 mg tablet 500 mg PO BID urinary tract 10/25/21 infection 7 days #14 tabs Previous Rx's Medication Instructions Recorded nitroglycerin 0.4 mg sublingual 0.4 mg sublingual Q5-15M PRN chest 05/29/20 tablet pain #25 tabs furosemide 20 mg tablet See Rx Instructions .Route 02/22/21 .COMPLEX #48 tabs albuterol sulfate 2.5 mg/3 mL 2.5 mg (3 mL) inhalation q4-6 h 07/04/21 (0.083 %) solution for nebulization prn ##1 albuterol sulfate 90 mcg/actuation 1 - 2 puff inhalation Q4H PRN ##1 07/04/21 aerosol inhaler (ProAir HFA) inhalational spacing device #1 ea 07/25/21 (POCKET CHAMBER spacer) metoprolol succinate 50 mg 50 mg PO DAILY #90 tabs 04/05/22 tablet,extended release 24 hr lisinopril 40 mg tablet 40 mg PO DAILY #90 tabs 09/05/21 cephalexin 500 mg tablet 500 mg PO BID urinary tract 10/25/21 infection 7 days #14 tabs Allergies Allergy/AdvReac Type Severity Reaction Status Date / Time Gadolinium-Containing Allergy Intermediate Hives Verified 10/25/21 11:08 Contrast Medi hydrochlorothiazide Allergy Intermediate rash/hives Verified 10/25/21 11:08 spironolactone Allergy Intermediate RASH, Verified 10/25/21 11:08 ITCHING, NAUSEA, H/A carisoprodol AdvReac Severe GI UPSET Verified 10/25/21 11:08 codeine AdvReac Severe GI UPSET Verified 10/25/21 11:08 hydromorphone HCl AdvReac Severe HEAD FEELS Verified 10/25/21 11:08 [From Dilaudid] FUNNY levofloxacin AdvReac Severe RED FACE Verified 10/25/21 11:08 AND CHEST, NOT FEEL WELL oxycodone AdvReac Severe GI UPSET Verified 10/25/21 11:08 triamcinolone acetonide AdvReac Severe BURN AND Verified 10/25/21 11:08 [From Kenalog] ITCH amlodipine AdvReac Intermediate Nausea Verified 10/25/21 11:08 atorvastatin AdvReac Intermediate MYALGIA Verified 10/25/21 11:08 pravastatin AdvReac Intermediate MYALGIA Verified 10/25/21 11:08 simvastatin AdvReac Intermediate MYALGIAS Verified 10/25/21 11:08 rosuvastatin AdvReac Mild HEARTBURN Verified 10/25/21 11:08 atenolol AdvReac Unknown Verified 10/25/21 11:08 Sulfa (Sulfonamide AdvReac Unknown NAUSEA, Verified 10/25/21 11:08 Antibiotics) VOMITING RED YEAST RICE AdvReac Severe Uncoded 10/25/21 11:08 General Stated Complaint: GenMedical OSEI: 3 Review of Systems All systems reviewed & are unremarkable except as noted in HPI and below Constitutional Constitutional: Reports as per HPI, Reports difficulty sleeping, Reports headache(s) and Reports weakness Eyes Eyes: Reports blurry vision (Now resolved) ENT Ears, Nose, Mouth, and Throat: Reports headache(s) Cardiovascular Cardiovascular: Denies chest pain, Denies pedal edema and Denies dyspnea (no worse than baseline) Respiratory Respiratory: Reports cough, Denies hemoptysis, Denies excessive phlegm production, Denies pain with cough and Denies dyspnea (no worse than baseline) Gastrointestinal Gastrointestinal: Reports nausea and Denies vomiting Neurologic Neurologic: Reports headache(s) and Reports weakness PFSH All Active Problems Acute UTI (Acute) Chronic rhinitis (Acute) 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) Emphysema, unspecified (Acute) Emphysema lung (Acute) Elevated d-dimer (Acute) CHF (congestive heart failure) (Chronic) Foul smelling urine (Acute) Adjustment disorder with depressed mood (Acute) Allergic sinusitis (Acute) Sleep disorder (Chronic) History of aortic aneurysm repair (Acute) History of bilateral ligation of fallopian tubes (Acute) Pityriasis in adult (Acute 11/21/12) Status post bunionectomy (Acute) Status post inguinal hernia repair (Acute) Suspected sleep apnea (Acute 03/09/15) 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/10/13) Orthopnea (Chronic) Right hip pain (Acute 10/29/14) Other fatigue (Acute 03/09/15) better w/ reduced b -khai dose Insomnia (Acute 05/16/16) Hyperlipidemia (Acute 11/21/12) 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 s/p RCA stenting b. 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 wears a belt to contain the hernia Intolerance of drug (Chronic) Opiates -- Allergy to sulfa drugs (Chronic) Allergy to intravenous contrast (Chronic) H/O surgical procedure (Chronic) a. s/p splenectomy but CT scan at [facility] showing splenosis, thus probably no immuno-impaired Medical History (Updated 10/25/21 @ 13:22 by Eusebia Quiñonez NP) Elevated brain natriuretic peptide (BNP) level echo 06/15 showed mild lvh Hypoxia Pneumonia (02/26/14) Shortness of breath Upper respiratory infection will add prednisone for wheeze/bronchospasm Surgical History AAA REPAIR 07/2009 BUNIONECTOMY X4 Ligation of fallopian tube BSO Pacemaker (~02/2013) Repair of inguinal hernia LEFT Splenomegaly (~07/2009) Stent placement (~06/2008) X 1 Family History Mother Essential hypertension Aortic aneurysm Father Heart disease SIBLINGS (8) Essential hypertension Aortic aneurysm Heart disease Hyperlipidemia Grandfather No problems noted. Grandfather No problems noted. Grandmother No problems noted. Grandmother No problems noted. Social History Smoking/Tobacco Use Status: Former Tobacco Use Quit Date: 01/29/08 Smoking risk assessment performed?: Yes Alcohol Intake: never Drug use: Never Substance use type: does not use Do you feel safe at home: Yes Do you feel safe in your relationship?: Yes Exam Narrative Exam Narrative: Constitutional: Alert and oriented x3. Appears stated age. Obese body habitus. Head: Normocephalic, no trauma. Eyes: Pupils PERRL, Red reflex noted, EOM's intact. Eyelids symmetrical without lesions, discharge, or swelling. ENT: Bilateral TM's WNL, External ear normal to inspection, no mastoid TTP, swelling, or erythema, Nasal turbinates WNL, no nasal discharge. Normal dentition, Posterior pharynx WNL, no exudate. Chest: RRR, Normal S1, S2, distal pulses intact. Resp: Lungs clear to auscultation bilaterally, no wheezes, rales, or rhonchi. Abdomen: Soft, non-distended, Normoactive bowel sounds all 4 quads. Musculoskeletal: Normal gait, 5/5 strength to all four extremities. Skin: No suspicious rashes or lesions. Capillary refill less than 2 sec. Neurologic: Generalized weakness. Cranial nerves II-XII intact. Alert and oriented x 3. Motor: No deficits noted. Sensory: Intact bilaterally all 4 extremities. Hematologic/Lymphatic: No ecchymosis, no lymphadenopathy. Course Vital Signs Vital signs: Vital Signs Temperature 36.3 C L 10/25/21 10:59 Pulse 69 10/25/21 10:59 Respiratory Rate 18 10/25/21 10:59 Blood Pressure 197/90 H 10/25/21 10:59 Pulse Oximetry 91 L 10/25/21 10:59 Temperature 36.3 C L 10/25/21 10:59 Temperature Source Skin 10/25/21 10:59 Pulse 69 10/25/21 10:59 Respiratory Rate 18 10/25/21 10:59 Respiratory Effort 10/25/21 11:07 Blood Pressure 197/90 H 10/25/21 10:59 Blood Pressure Position Supine 10/25/21 10:59 Pulse Oximetry 91 L 10/25/21 10:59 Oxygen Delivery Method Room Air 10/25/21 10:59 Oxygen Flow Rate 0 10/25/21 10:59 Pain Level 0 10/25/21 10:59
[2021-10-25 11:45] LABS: Abs Immature Grans 0.03 10^3/uL (0.0-0.06); Absolute Basophil Count 0.05 10^3/uL (0.0-0.2); Absolute Lymphocyte Count 2.68 10^3/uL (1.2-3.4); Absolute Monocyte Count 0.82 10^3/uL (0.1-0.8); Absolute Neutrophil Count 5.73 10^3/uL (1.2-6.7); Basophils % 0.5; Eosinophils % 1.1; HCT 40.5 % (36.0-46.0); HGB 13.3 g/dL (11.2-15.7); Immature Grans % 0.3; Lymphocytes % 28.5; MCH 30.6 pg (27.0-33.0); MCHC 32.8 % (32.0-36.0); MCV 93 fL (80-95); MPV 12.9 fL (8.0-11.0); Monocytes % 8.7; Neutrophils % 60.9; Platelet Count 240 10^3/uL (130-400); RBC 4.35 10^6/uL (3.93-5.22); RDW 14.2 % (11.7-14.6); RDW-SD 48.4 fL; WBC 9.41 10^3/uL (4.4-10.8)
[2021-10-25 11:59] LABS: ALT 22 U/L (14-59); AST 16 U/L (15-37); Albumin 3.6 g/dL (3.4-5.0); Alkaline Phosphatase 69 U/L (46-116); Anion Gap 7.4 mmol/L (3-11); BUN 22 mg/dL (7-18); Bilirubin, Total 0.4 mg/dL (0.2-1.0); CO2 27.6 mmol/L (21.0-32.0); CREATININE 0.7 mg/dL (0.55-1.02); Calcium 9.2 mg/dL (8.5-10.1); Chloride 102 mmol/L (98-107); Glucose 111 mg/dL (74-106); Magnesium 2.1 mg/dL (1.8-2.4); NT-proBNP 402 pg/mL (<300); Potassium 3.6 mmol/L (3.5-5.1); Sodium 137 mmol/L (136-145); Total Protein 7.4 g/dL (6.4-8.2); Troponin I < 50 ng/L (<or=60)
[2021-10-25 13:02] LABS: Bilirubin Negative (Negative); Blood Trace-intact (Negative); Clarity Cloudy (Clear); Glucose Negative (Negative); Ketones Negative (Negative); Leukocyte Esterase Small (Negative); Nitrite Positive (Negative); Urobilinogen 0.2 EU/dL (Up TO 0.2)
[2021-10-25 13:14] LABS: Bacteria Many HPF (Negative); C & S Indicated? Yes; Casts Negative LPF (Negative); Crystals Negative HPF (Negative); Epithelial Cells Few HPF (Negative); Mucus Negative (Negative); RBC 0-2 HPF (0-2)
[2021-10-25] MEDS: Cephalexin 500 MG CAP PO (13:27)
[2021-10-27 17:38] LABS: Lab Add On Test DONE
[2021-10-27 18:23] LABS: Vitamin D 25 Total 10.4 ng/mL (30-100)
== END 2021-10-25 13:38 | disposition home or self-care (01) ==
PROVIDERS: Emergency Provider Registered Nurse Emergency; PCP Family Medicine
DX: N93.0 Postcoital and contact bleeding (principal); B96.20 Unspecified Escherichia coli [E. coli] as the cause of diseases classified elsewhere; F41.9 Anxiety disorder, unspecified; H53.8 Other visual disturbances; R51.9 Headache, unspecified; R53.1 Weakness; I10 Essential (primary) hypertension; Z91.14 Patient's other noncompliance with medication regimen; Z95.0 Presence of cardiac pacemaker; R06.02 Shortness of breath; E55.9 Vitamin D deficiency, unspecified
CPT/HCPCS: 80053; 82306; 87077; 93005; 99285; 70450; 71046; 81003; 81015; 83735; 83880; 84484; 85025; 87086; 87186; 93010; 99284

== ENCOUNTER → 2022-02-15 09:19 | Outpatient (BNVA) | payer MEDICARE, SELFPAY | PROVIDERS: PCP Family Medicine; Visit Provider Physician Assistant | DX: Z95.0 Presence of cardiac pacemaker (principal); I44.2 Atrioventricular block, complete | CPT/HCPCS: 93280 ==

== ENCOUNTER 2022-05-10 11:21 | Outpatient (CLI) | payer MEDICARE, SELFPAY | END 2022-05-10 11:22 | disposition home or self-care (01) | LOC: LOS 11:21 | PROVIDERS: PCP Family Medicine; Visit Provider Family Medicine | DX: E55.9 Vitamin D deficiency, unspecified (principal) | CPT/HCPCS: 36415; 82306; 87086 ==

== ENCOUNTER 2022-05-11 09:36 | Outpatient (REF) | payer MEDICARE, SELFPAY | END 2022-05-11 09:37 | disposition home or self-care (01) | LOC: LBN 09:36 | PROVIDERS: PCP Family Medicine; Visit Provider Family Medicine | DX: R30.0 Dysuria (principal); N39.0 Urinary tract infection, site not specified | CPT/HCPCS: 87077; 87086; 87186 ==

== ENCOUNTER 2022-05-30 01:33 | Outpatient (CLI) | payer MEDICARE, SELFPAY ==
--- NOTE | 2022-05-30 07:15 | DI.RAD_ITS ---
Exam(s) XR CHEST 2V PA LATERAL EXAM: XR CHEST 2V PA LATERAL CLINICAL HISTORY: crackles on exam, ? pneumonia,COPD,J44.9 TECHNIQUE: 2D digital imaging was performed of the chest. Two images were obtained. PA and lateral views were obtained. COMPARISON: CR XR CHEST 2V PA LATERAL from 10/25/2021 FINDINGS: MEDIASTINUM: Normal. HEART: Normal. Cardiac pacing device is stable. PULMONARY VASCULATURE: Normal. LUNGS: No focal consolidating infiltrates are present. PLEURAL SPACE: No pleural effusion or pneumothorax. BONE:Within normal limits for the patient's age. OTHER FINDINGS:Normal. IMPRESSION: No acute pulmonary findings. DATA REPOSITORY: RADIATION DOSE DELIVERED:
== END 2022-05-30 01:53 ==
LOC: DI 01:33
PROVIDERS: PCP Family Medicine; Visit Provider Nurse Practitioner Family
DX: J44.9 Chronic obstructive pulmonary disease, unspecified (principal); R09.89 Other specified symptoms and signs involving the circulatory and respiratory systems; Z95.0 Presence of cardiac pacemaker
CPT/HCPCS: 71046

== ENCOUNTER → 2022-08-16 09:18 | Outpatient (BNVA) | payer MEDICARE, SELFPAY | PROVIDERS: PCP Family Medicine; Visit Provider Physician Assistant | DX: Z46.89 Encounter for fitting and adjustment of other specified devices (principal); Z95.0 Presence of cardiac pacemaker; I44.2 Atrioventricular block, complete | CPT/HCPCS: 93280; 99212 ==

== ENCOUNTER → 2023-02-14 09:21 | Outpatient (BNVA) | payer MEDICARE, SELFPAY | PROVIDERS: PCP Family Medicine; Referring Provider Family Medicine; Visit Provider Physician Assistant | DX: Z45.018 Encounter for adjustment and management of other part of cardiac pacemaker (principal); I44.2 Atrioventricular block, complete | CPT/HCPCS: 93280 ==

== ENCOUNTER 2023-05-29 19:02 | Outpatient (REF) | payer MEDICARE, SELFPAY | END 2023-05-29 19:03 | disposition home or self-care (01) | LOC: LBN 19:02 | PROVIDERS: PCP Family Medicine; Visit Provider Family Medicine | DX: R30.0 Dysuria (principal); R82.998 Other abnormal findings in urine; R10.9 Unspecified abdominal pain | CPT/HCPCS: 87077; 87086; 87186 ==

== ENCOUNTER 2023-06-08 02:29 | Outpatient (CLI) | payer MEDICARE, SELFPAY ==
[2023-06-08 12:07] LABS: Abs Immature Grans 0.07 10^3/uL (0.0-0.06); Absolute Basophil Count 0.07 10^3/uL (0.0-0.2); Absolute Eosinophil Count 0.26 10^3/uL (0.0-0.7); Absolute Lymphocyte Count 3.05 10^3/uL (1.2-3.4); Absolute Neutrophil Count 5.26 10^3/uL (1.2-6.7); Basophils % 0.7; Eosinophils % 2.7; HCT 41.6 % (36.0-46.0); Immature Grans % 0.7; Lymphocytes % 32.1; MCH 29.3 pg (27.0-33.0); MCHC 31.3 % (32.0-36.0); MCV 94 fL (80-95); MPV 12.2 fL (8.0-11.0); Monocytes % 8.4; Neutrophils % 55.4; Platelet Count 347 10^3/uL (130-400); RBC 4.44 10^6/uL (3.93-5.22); RDW 14.8 % (11.7-14.6); RDW-SD 51.2 fL; WBC 9.51 10^3/uL (4.4-10.8)
[2023-06-08 12:21] LABS: ALT 25 U/L (14-59); AST 14 U/L (15-37); Albumin 3.5 g/dL (3.4-5.0); Alkaline Phosphatase 77 U/L (46-116); Anion Gap 8.1 mmol/L (3-11); BUN 18 mg/dL (7-18); Bilirubin, Total 0.4 mg/dL (0.2-1.0); CO2 28.9 mmol/L (21.0-32.0); CREATININE 0.7 mg/dL (0.55-1.02); Calcium 9.3 mg/dL (8.5-10.1); Chloride 102 mmol/L (98-107); Glucose 93 mg/dL (74-106); Sodium 139 mmol/L (136-145); Total Protein 7.5 g/dL (6.4-8.2)
[2023-06-13 09:00] LABS: 1,25-Dihydroxyvitamin D 43 pg/mL (18-78)
== END 2023-06-08 02:30 | disposition home or self-care (01) ==
LOC: LOS 02:32
PROVIDERS: PCP Family Medicine; Visit Provider Family Medicine
DX: R10.9 Unspecified abdominal pain (principal); D64.9 Anemia, unspecified; E55.9 Vitamin D deficiency, unspecified
CPT/HCPCS: 36415; 80053; 82652; 85025

== ENCOUNTER 2023-06-27 15:37 | Outpatient (REF) | payer MEDICARE, SELFPAY | END 2023-06-27 15:38 | disposition home or self-care (01) | LOC: LBN 15:37 | PROVIDERS: PCP Family Medicine; Visit Provider Family Medicine | DX: N39.0 Urinary tract infection, site not specified (principal) | CPT/HCPCS: 87077; 87086; 87186 ==

== ENCOUNTER → 2023-09-10 12:35 | Outpatient (BNVA) | payer MEDICARE, SELFPAY | PROVIDERS: PCP Family Medicine; Referring Provider Family Medicine; Visit Provider Physician Assistant Surgical | DX: J43.9 Emphysema, unspecified (principal); J84.10 Pulmonary fibrosis, unspecified; F17.201 Nicotine dependence, unspecified, in remission; J31.0 Chronic rhinitis; J96.11 Chronic respiratory failure with hypoxia | CPT/HCPCS: 99214 ==

== ENCOUNTER → 2023-09-12 11:20 | Outpatient (BNVA) | payer MEDICARE, SELFPAY | PROVIDERS: PCP Family Medicine; Referring Provider Family Medicine; Visit Provider Student in an Organized Health Care Education/Training Program | DX: Z45.010 Encounter for checking and testing of cardiac pacemaker pulse generator [battery] (principal); I44.2 Atrioventricular block, complete | CPT/HCPCS: 93280 ==

== ENCOUNTER 2023-12-27 17:23 | Outpatient (REF) | payer MEDICARE, SELFPAY | END 2023-12-27 17:24 | disposition home or self-care (01) | LOC: LBN 17:23 | PROVIDERS: PCP Family Medicine; Visit Provider Family Medicine | DX: N39.0 Urinary tract infection, site not specified (principal) | CPT/HCPCS: 87077; 87086; 87186 ==

== ENCOUNTER 2024-03-19 08:02 | Outpatient (CLI) | payer MEDICARE, SELFPAY ==
--- NOTE | 2024-03-19 08:00 | RT.EKG_ITS ---
APPROVED REPORT Exam: Resting ECG Reason for Exam: CAD Patient Location: O HR:64 bpm ECG Measurements Heart Rate 64 AXIS AK 205 P 31 QRSd 103 QRS 27 QT 406 T 12 QTc 419 Conclusion Sinus rhythm...normal P axis, V-rate 50- 99 Poor R wave progression
== END 2024-03-19 08:03 | disposition home or self-care (01) ==
LOC: DI.CARD 08:03
PROVIDERS: PCP Family Medicine; Visit Provider Student in an Organized Health Care Education/Training Program
DX: I25.10 Atherosclerotic heart disease of native coronary artery without angina pectoris (principal)
CPT/HCPCS: 93010

== ENCOUNTER → 2024-03-19 11:25 | Outpatient (BNVA) | payer MEDICARE, SELFPAY | PROVIDERS: PCP Family Medicine; Visit Provider Student in an Organized Health Care Education/Training Program | DX: Z95.810 Presence of automatic (implantable) cardiac defibrillator (principal); I25.10 Atherosclerotic heart disease of native coronary artery without angina pectoris; I44.2 Atrioventricular block, complete | CPT/HCPCS: 93005; 93280 ==

== ENCOUNTER 2024-06-23 03:05 | Outpatient (CLI) | payer MEDICARE, SELFPAY ==
[2024-06-23 12:42] LABS: Anion Gap 6.7 mmol/L (3-11); BUN 19 mg/dL (7-18); CO2 30.3 mmol/L (21.0-32.0); CREATININE 0.7 mg/dL (0.55-1.02); Calcium 9.6 mg/dL (8.5-10.1); Chloride 104 mmol/L (98-107); Estimated GFR 90.14 (mL/min/1.73m2); Glucose 108 mg/dL (74-106); Potassium 4.3 mmol/L (3.5-5.1); Sodium 141 mmol/L (136-145)
== END 2024-06-23 03:06 | disposition home or self-care (01) ==
LOC: LOS 03:05
PROVIDERS: PCP Family Medicine; Visit Provider Family Medicine
DX: E87.1 Hypo-osmolality and hyponatremia (principal)
CPT/HCPCS: 36415; 80048

== ENCOUNTER 2024-07-15 11:34 | Emergency (ER) | payer MEDICARE, SELFPAY ==
[2024-07-15] VITALS (11 sets, daily range): BP systolic 165–185; BP diastolic 80–83; PULSE 64–76; RESP 5–25; TEMP 36.2–36.3; O2SAT 88–97
--- NOTE | 2024-07-15 11:45 | RT.EKG_ITS ---
APPROVED REPORT Exam: Resting ECG Reason for Exam: SOB Patient Location: E HR:69 bpm ECG Measurements Heart Rate 69 AXIS ID 193 P 34 QRSd 113 QRS 53 QT 400 T 9 QTc 428 Conclusion Sinus rhythm...normal P axis, V-rate 60- 99 No STEMI
[2024-07-15 12:14] LABS: BE (Venous) 3 mmol/L (-2-3); HCO3 (Venous) 28 mmol/L (23-28); O2 Sat (Venous) 61 %; TCO2 (Venous) 25 mmol/L (24-29); pCO2 (Venous) 45 mmHg (41-51); pH (Venous) 7.39 (7.31-7.41); pO2 (Venous) 34 mmHg
[2024-07-15 12:17] LABS: Abs Immature Grans 0.15 10^3/uL (0.0-0.06); Absolute Basophil Count 0.06 10^3/uL (0.0-0.2); Absolute Eosinophil Count 0.13 10^3/uL (0.0-0.7); Absolute Lymphocyte Count 2.61 10^3/uL (1.2-3.4); Absolute Monocyte Count 1.64 10^3/uL (0.1-0.8); Basophils % 0.4 %; Eosinophils % 0.8 %; HCT 40.7 % (36.0-46.0); HGB 13.1 g/dL (11.2-15.7); Lymphocytes % 16.7 %; MCH 30.1 pg (27.0-33.0); MCHC 32.2 % (32.0-36.0); MCV 94 fL (80-95); MPV 11.5 fL (8.0-11.0); Monocytes % 10.5 %; Neutrophils % 70.6 %; Platelet Count 270 10^3/uL (130-400); RBC 4.35 10^6/uL (3.93-5.22); RDW 14.6 % (11.7-14.6); RDW-SD 50.1 fL; WBC 15.65 10^3/uL (4.4-10.8)
--- NOTE | 2024-07-15 12:17 | ED.GENADUL_ITS ---
Discharge Plan Disposition Patient Disposition: Home Condition: Stable Discharge Details Clinical Impression: Pneumonia, Right middle lobe pulmonary infiltrate Primary Care Provider: Temo Beauchamp ED Provider: Eusebia Quiñonez Home Meds and New Rx's Prescriptions: New doxycycline hyclate 100 mg capsule 100 mg PO BID 10 Days Qty: 20 0RF Rx Instructions: Please take 1 capsule by mouth twice daily for the next 10 days Continued nitroglycerin 0.4 mg tablet, sublingual 0.4 mg sublingual Q5-15M PRN (Reason: chest pain) Qty: 25 0RF Rx Instructions: take as needed q 5 mins for c/p until gone if take 3 pills and pain persists, call ipratropium bromide 17 mcg/actuation HFA aerosol inhaler 2 puff inhalation TID Qty: 12.9 0RF amlodipine 10 mg tablet 5 mg PO DAILY Qty: 90 3RF lisinopril 40 mg tablet 40 mg PO DAILY Qty: 90 3RF metoprolol succinate 25 mg tablet extended release 24 hr 25 mg PO DAILY Qty: 90 3RF aspirin [Aspirin Low-Strength] 81 MG tablet,chewable 81 mg PO DAILY ibuprofen 200 MG tablet 2 tab PO HS (DME) POCKET CHAMBER Spacer See Rx Instructions .Route Qty: 1 0RF Rx Instructions: As directed loratadine [Allergy Relief (loratadine)] 10 mg tablet 10 mg PO DAILY Qty: 30 3RF albuterol sulfate 90 mcg/actuation HFA aerosol inhaler 1 - 2 puff Inhalation Q4H PRN Qty: 1 2RF fluticasone furoate-vilanterol [Breo Ellipta] 200-25 mcg/dose blister with device 1 inh inhalation DAILY Qty: 60 5RF cefuroxime axetil 500 mg tablet 500 mg PO BID Qty: 10 0RF prednisone 20 mg tablet 40 mg PO DAILY Qty: 10 0RF albuterol sulfate 2.5 mg /3 mL (0.083 %) solution for nebulization 2.5 mg Inhalation q4-6 h prn Qty: 1 4RF No Action triamcinolone acetonide 0.1 % ointment 1 applic Topical BID PRN (Reason: rash on trunk) Qty: 453.6 0RF Rx Instructions: APPLY TO ITCHY RASH on trunk; Discharge Instructions Instructions: Pneumonia, Adult ED Additional Instructions: At this time it appears you have some right lower and middle lobe pneumonia. Please take the antibiotic with yogurt or a probiotic twice daily for the next 10 days as prescribed. The x-ray also shows a possible mass on the imaging which was discussed with you. They do recommend further evaluation with CT imaging which you have declined at this time. Please discuss these results with your primary care provider. I also recommend repeat x-ray imaging in the near future to evaluate resolution of the pneumonia. Please take Tylenol or Ibuprofen with food every 4-6 hours as needed for pain and swelling. Use the albuterol nebulizers as discussed as needed for shortness of breath and wheezing every 4-6 hours. Use your inhalers also as previously prescribed. Thank you for allowing us to care for you today. Follow up with primary care provider in 3-5 days. Return to ED sooner if any worsening or concerns. Referrals: Temo Beauchamp MD [Primary Care Provider] - 1 week HPI General Mode of arrival: ambulatory . Date/Time Provider Initiated Documentation: 07/15/24 11:38 . Limitations to Documentation: no limitations . Information obtained by: patient, RN notes reviewed and old records reviewed . HPI Narrative: 73-year-old female presents to the ER with a chief complaint of cough URI type symptoms for the last week. She does have a history of COPD and CHF obesity. She reports that she was seen/via televisit at [facility] was given prescri ption for steroids and something that she took for 3 days which was 500 mg that she cannot remember the name of. She reports that that did not make her feel any better. Upon arrival her O2 sat is 88% on room air however she reports that is always low she does not wear home O2. She does use inhalers at home. Related Data Home Medications ?Medication ?Instructions ?Recorded ?Confirmed aspirin 81 mg chewable tablet 81 mg PO DAILY 09/16/12 07/15/24 (Aspirin Low-Strength) ibuprofen 200 mg tablet 2 tab PO HS 12/29/15 07/15/24 inhalational spacing device #1 ea 07/25/21 07/15/24 (POCKET CHAMBER spacer) nitroglycerin 0.4 mg sublingual 0.4 mg sublingual Q5-15M PRN chest 02/01/22 07/15/24 tablet pain #25 tabs triamcinolone acetonide 0.1 % 1 applic topical BID PRN rash on 09/20/22 06/05/24 topical ointment trunk #453.6 grams loratadine 10 mg tablet (Allergy 10 mg PO DAILY #30 tabs 10/23/23 07/15/24 Relief (loratadine)) amlodipine 10 mg tablet 5 mg (1/2 x 10 mg) PO DAILY #90 12/27/23 07/15/24 tabs ipratropium bromide 17 2 puff inhalation TID #12.9 grams 12/27/23 07/15/24 mcg/actuation HFA aerosol inhaler albuterol sulfate 90 mcg/actuation 1 - 2 puff inhalation Q4H PRN ##1 01/01/24 07/15/24 aerosol inhaler fluticasone furoate 200 1 inh inhalation DAILY #60 ea 02/14/24 07/15/24 mcg-vilanterol 25 mcg/dose inhalation powder (Breo Ellipta) lisinopril 40 mg tablet 40 mg PO DAILY #90 tabs 06/05/24 07/15/24 metoprolol succinate 25 mg 25 mg PO DAILY #90 tabs 06/05/24 07/15/24 tablet,extended release 24 hr albuterol sulfate 2.5 mg/3 mL 2.5 mg (3 mL) inhalation q4-6 h 07/08/24 07/15/24 (0.083 %) solution for nebulization prn ##1 cefuroxime axetil 500 mg tablet 500 mg PO BID copd exac #10 tabs 07/08/24 07/15/24 prednisone 20 mg tablet 40 mg (2 x 20 mg) PO DAILY #10 tabs 07/08/24 07/15/24 doxycycline hyclate 100 mg capsule 100 mg PO BID Pneumonia 10 days 07/15/24 #20 caps Previous Rx's ?Medication ?Instructions ?Recorded inhalational spacing device #1 ea 07/25/21 (POCKET CHAMBER spacer) nitroglycerin 0.4 mg sublingual 0.4 mg sublingual Q5-15M PRN chest 02/01/22 tablet pain #25 tabs triamcinolone acetonide 0.1 % 1 applic topical BID PRN rash on 09/20/22 topical ointment trunk #453.6 grams loratadine 10 mg tablet (Allergy 10 mg PO DAILY #30 tabs 10/23/23 Relief (loratadine)) amlodipine 10 mg tablet 5 mg (1/2 x 10 mg) PO DAILY #90 12/27/23 tabs ipratropium bromide 17 2 puff inhalation TID #12.9 grams 12/27/23 mcg/actuation HFA aerosol inhaler albuterol sulfate 90 mcg/actuation 1 - 2 puff inhalation Q4H PRN ##1 01/01/24 aerosol inhaler fluticasone furoate 200 1 inh inhalation DAILY #60 ea 02/14/24 mcg-vilanterol 25 mcg/dose inhalation powder (Breo Ellipta) lisinopril 40 mg tablet 40 mg PO DAILY #90 tabs 06/05/24 metoprolol succinate 25 mg 25 mg PO DAILY #90 tabs 06/05/24 tablet,extended release 24 hr albuterol sulfate 2.5 mg/3 mL 2.5 mg (3 mL) inhalation q4-6 h 07/08/24 (0.083 %) solution for nebulization prn ##1 cefuroxime axetil 500 mg tablet 500 mg PO BID copd exac #10 tabs 07/08/24 prednisone 20 mg tablet 40 mg (2 x 20 mg) PO DAILY #10 tabs 07/08/24 doxycycline hyclate 100 mg capsule 100 mg PO BID Pneumonia 10 days 07/15/24 #20 caps Allergies Allergy/AdvReac Type Severity Reaction Status Date / Time Gadolinium-Containing Allergy Intermediate Hives Verified 07/15/24 11:47 Contrast Medi hydrochlorothiazide Allergy Intermediate rash/hives Verified 07/15/24 11:47 spironolactone Allergy Intermediate RASH, Verified 07/15/24 11:47 ITCHING, NAUSEA, H/A carisoprodol AdvReac Severe GI UPSET Verified 07/15/24 11:47 codeine AdvReac Severe GI UPSET Verified 07/15/24 11:47 hydromorphone HCl (From AdvReac Severe HEAD FEELS Verified 07/15/24 11:47 Dilaudid) FUNNY levofloxacin AdvReac Severe RED FACE Verified 07/15/24 11:47 AND CHEST, NOT FEEL WELL oxycodone AdvReac Severe GI UPSET Verified 07/15/24 11:47 triamcinolone acetonide AdvReac Severe BURN AND Verified 07/15/24 11:47 (From Kenalog) ITCH amlodipine AdvReac Intermediate Nausea Verified 07/15/24 11:47 atorvastatin AdvReac Intermediate MYALGIA Verified 07/15/24 11:47 pravastatin AdvReac Intermediate MYALGIA Verified 07/15/24 11:47 simvastatin AdvReac Intermediate MYALGIAS Verified 07/15/24 11:47 losartan AdvReac Mild foggy Verified 07/15/24 11:47 headed rosuvastatin AdvReac Mild HEARTBURN Verified 07/15/24 11:47 atenolol AdvReac Unknown Other (See Verified 07/15/24 11:47 Comment) Sulfa (Sulfonamide AdvReac Unknown NAUSEA, Verified 07/15/24 11:47 Antibiotics) VOMITING RED YEAST RICE AdvReac Severe Other (See Uncoded 07/15/24 11:47 Comment) General Stated Complaint: RespSymp OSEI: 3 Review of Systems All systems reviewed & are unremarkable except as noted in HPI and below Cardiovascular Cardiovascular: Reports dyspnea on exertion Respiratory Respiratory: Reports chest congestion, Reports cough and Reports dyspnea on exertion Gastrointestinal Gastrointestinal: Denies diarrhea, Denies nausea and Denies vomiting Exam Narrative Exam Narrative: Constitutional: Alert and oriented x3. Appears stated age. Obese body habitus. Pleasant and conversive. Head: Normocephalic, no trauma. Eyes: Pupils PERRL, Red reflex noted, EOM's intact. Eyelids symmetrical without lesions, discharge, or swelling. ENT: Bilateral TM's WNL, External ear normal to inspection, no mastoid TTP, swelling, or erythema, Nasal turbinates WNL, no nasal discharge. Normal dentition, Posterior pharynx WNL, no exudate. Chest: RRR, Normal S1, S2, distal pulses intact. Resp: Lungs diminished to auscultation bilaterally, no wheezes, rales, or rhonchi. Abdomen: Soft, non-distended, Normoactive bowel sounds all 4 quads. Musculoskeletal: Normal gait, Moves all 4 extremities without difficulty. Skin: No suspicious rashes or lesions. Capillary refill less than 2 sec. Neurologic: Cranial nerves II-XII intact. Alert and oriented x 3. Motor: No deficits noted. Sensory: Intact bilaterally all 4 extremities. Hematologic/Lymphatic: No ecchymosis, no lymphadenopathy. Course Vital Signs Vital signs: Vital Signs Temperature 36.3 C L 07/15/24 11:37 Pulse 76 07/15/24 11:37 Respiratory Rate 22 07/15/24 11:37 Blood Pressure 185/83 H 07/15/24 11:37 Pulse Oximetry 88 L 07/15/24 11:37 Temperature 36.3 C L 07/15/24 11:37 Temperature Source Oral 07/15/24 11:37 Pulse 76 07/15/24 11:37 Respiratory Rate 22 07/15/24 11:37 Blood Pressure 185/83 H 07/15/24 11:37 Blood Pressure Position Sitting 07/15/24 11:37 Pulse Oximetry 88 L 07/15/24 11:37 Oxygen Delivery Method Room Air 07/15/24 11:37 Oxygen Flow Rate 0 07/15/24 11:37 Lab/Test Results Lab/Test Results: Laboratory Tests Range/Units 07/15/24 12:08 VBG pH (7.31-7.41) 7.39 VBG pCO2 (41-51) mmHg 45 VBG pO2 mmHg 34 VBG HCO3 (23-28) mmol/L 28 VBG Total CO2 (24-29) mmol/L 25 VBG O2 Saturation % 61 VBG Base Excess (-2-3) mmol/L 3 Medical Decision Making 73-year-old female presents to the ER with a chief complaint of cough URI type symptoms for the last week. She does have a history of COPD and CHF obesity. She reports that she was seen/via televisit at [facility] was given prescription for steroids and something that she took for 3 days which was 500 mg that she cannot remember the name of. She reports that that did not make her feel any better. Upon arrival her O2 sat is 88% on room air however she reports that is always low she does not wear home O2. She does use inhalers at home. Workup ordered including CBC CMP proBNP, VBG Fluvid swab and chest x-ray. Will give a DuoNeb. Differential diagnosis includes not limited to viral illness, pneumonia, CHF exacerbation. CBC shows leukocytosis with a white blood cell count of 15.65, neutrophils 11.05 VBG shows pH 7.39 pO2 34 bicarb 20, CO2 45, CMP largely within normal limits glucose 114 AST 13 initial troponin within normal limits proBNP 205 negative for COVID flu RSV. Chest x-ray shows possible infiltrate in the right lower lobe, also rounded density in the right middle lobe question mass, CT recommended for further evaluation. CT ordered. Blood cultures x 2. Will give IV doxycycline. After discussing the x-ray results and lab results with patient and the request for CT chest patient declines at this time. Discussed this that this could be a mass or cancer versus worsening infiltrate or pneumonia she verbalized understanding reports that she would rather not know if it is cancerous. I did discuss the risks and benefits she verbalized understanding. She is alert and oriented x 4. She is requesting to be discharged. She does have a nebulizer at home I did encourage her to use that. Will place her on doxycycline p.o. I did also encourage her to follow-up with her primary care provider. She verbalized understanding. I did recommend a repeat chest x-ray in the near future for reevaluation. CT and blood cultures canceled. She is sitting up on the side of the bed is speaking in full sentences she reports that the nebulizer made her feel much better. O2 sat 94% on reevaluation. This text was generated using [employer] dictation system, please disregard any oddities of phrase or misspellings. Medical Records Medical records reviewed: Yes I reviewed the patient's medical records. Imaging Data Radiologic Study: Imaging: X-Ray Radiologist's impression: FINDINGS: HEART: Mildly enlarged. Pacemaker. Aorta: Mildly dilated. PULMONARY VASCULATURE: Mildly prominent. MEDIASTINUM: Unremarkable. LUNGS: Increased densities beneath the right hilum could indicate superimposed infiltrate. Question a rounded density in the right mid lung field, beneath the level of the pacemaker battery pack. Mildly increased densities near the lung bases could indicate mild pulmonary edema. PLEURAL SPACE: No minimal blunting at the costophrenic angles could indicate ti ny effusions. BONE:Unremarkable for age. SOFT TISSUES: Unremarkable. IMPRESSION: Findings consistent mild CHF. Question additional superimposed right middle lobe infiltrate. Question of a mass in the right mid lung field. CT recommended for further evaluation. Unexpected findings Lab Data Lab results reviewed: Yes I reviewed the patient's lab results. Labs: Laboratory Tests Range/Units 07/15/24 07/15/24 07/15/24 11:57 12:08 13:21 WBC (4.4-10.8) 10^3/uL 15.65 H RBC (3.93-5.22) 10^6/uL 4.35 Hgb (11.2-15.7) g/dL 13.1 Hct (36.0-46.0) % 40.7 MCV (80-95) fL 94 MCH (27.0-33.0) pg 30.1 MCHC (32.0-36.0) % 32.2 RDW (11.7-14.6) % 14.6 Plt Count (130-400) 10^3/uL 270 MPV (8.0-11.0) fL 11.5 H Immature Gran % % 1.0 Neutrophils % % 70.6 Lymphocytes % % 16.7 Monocytes % % 10.5 Eosinophils % % 0.8 Basophils % % 0.4 Nucleated RBC % (0.0-0.3) % 0.0 Absolute Neutrophils (1.2-6.7) 10^3/uL 11.05 H Absolute Lymphocytes (1.2-3.4) 10^3/uL 2.61 Absolute Monocytes (0.1-0.8) 10^3/uL 1.64 H Absolute Eosinophils (0.0-0.7) 10^3/uL 0.13 Absolute Basophils (0.0-0.2) 10^3/uL 0.06 RBC Morphology Normal VBG pH (7.31-7.41) 7.39 VBG pCO2 (41-51) mmHg 45 VBG pO2 mmHg 34 VBG HCO3 (23-28) mmol/L 28 VBG Total CO2 (24-29) mmol/L 25 VBG O2 Saturation % 61 VBG Base Excess (-2-3) mmol/L 3 Sodium (136-145) mmol/L 140 Potassium (3.5-5.1) mmol/L 3.5 Chloride (98-107) mmol/L 104 Carbon Dioxide (21.0-32.0) mmol/L 27.6 Anion Gap (3-11) mmol/L 8.4 BUN (7-18) mg/dL 16 Creatinine (0.55-1.02) mg/dL 0.6 Est GFR (CKD-EPI 2020) (mL/min/1.73m2) 93.55 Glucose (74-106) mg/dL 114 H Calcium (8.5-10.1) mg/dL 9.0 Total Bilirubin (0.2-1.0) mg/dL 0.4 AST (15-37) U/L 13 L ALT (14-59) U/L 31 Alkaline Phosphatase (46-116) U/L 90 Troponin I (<or=51) ng/L 8 Cancelled NT-Pro-B Natriuret Pep (<300) pg/mL 205 Total Protein (6.4-8.2) g/dL 6.9 Albumin (3.4-5.0) g/dL 3.1 L COVID-19 Source Nasopharynx SARS-CoV-2 (PCR) (Negative) Negative Influenza Type A (PCR) (Negative) Negative Influenza Type B (PCR) (Negative) Negative RSV (PCR) (Negative) Negative Quality:SDOH Health Related Social Needs: No Data to Display PFSH All Active Problems Right middle lobe pulmonary infiltrate (Acute) Pneumonia (Acute) Obesity (BMI 30-39.9) (Acute) Chronic hypoxic respiratory failure (Acute) Itch (Acute) Xerostomia (Acute) Foot pain, left (Acute) Vitamin D deficiency (Acute) Postmenopausal (Acute) Chronic rhinitis (Acute) 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) Emphysema, unspecified (Acute) Emphysema lung (Acute) Elevated d-dimer (Acute) CHF (congestive heart failure) (Chronic) Foul smelling urine (Acute) Adjustment disorder with depressed mood (Acute) Allergic sinusitis (Acute) Sleep disorder (Chronic) History of aortic aneurysm repair (Acute) History of bilateral ligation of fallopian tubes (Acute) Pityriasis in adult (Acute 11/21/12) Status post bunionectomy (Acute) Status post inguinal hernia repair (Acute) Suspected sleep apnea (Acute 03/09/15) 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 July 2009 Complete heart block (Chronic) with syncope CAD (coronary artery disease) (Chronic) A. s/p RCA stenting b. 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 wears a belt to contain the hernia Intolerance of drug (Chronic) Opiates -- Allergy to sulfa drugs (Chronic) Allergy to intravenous contrast (Chronic) H/O surgical procedure (Chronic) a. s/p splenectomy but CT scan at [facility] showing splenosis, thus probably no immuno-impaired Medical History Hypoxia Elevated brain natriuretic peptide (BNP) level echo 06/15 showed mild lvh Upper respiratory infection will add prednisone for wheeze/bronchospasm Shortness of breath Pneumonia (02/26/14) Surgical History Ligation of fallopian tube BSO Stent placement (~06/2008) X 1 Splenomegaly (~07/2009) Pacemaker (~02/2013) Repair of inguinal hernia LEFT BUNIONECTOMY X4 AAA REPAIR 07/2009 Family History Mother Essential hypertension Aortic aneurysm Father Heart disease S[place]INGS (8) Essential hypertension Aortic aneurysm Heart disease Hyperlipidemia Grandfather No problems noted. Grandfather No problems noted. Grandmother No problems noted. Grandmother No problems noted. Social History Smoking/Tobacco Use Status: Former Tobacco Use tobacco type: cigarettes Quit Date: 01/29/08 Tobacco: How many years used: 40 Second Hand Exposure: Yes Smoking risk assessment performed?: Yes Alcohol Intake: former Drug use: Never Substance use type: does not use Caregiver/Support person: No Household members: significant other Housing: house Do you need help understanding health information?: Rarely Pets and animals: No Sexually active: No Do you think of yourself as: straight/heterosexual Current gender identity: female What is your relationship status?: living with partner How often do you talk on the phone with friends or family?: once per week How often do you get together with friends or relatives?: never Do you belong to any clubs or organized social groups?: no Panel score (0-1 are the most socially isolated patients): 1 What type of physical activity do you participate in: other Details: house hold activities [place]/Mormon: Voodoo Special [place] needs: No Do you feel safe at home: Yes Do you feel safe in your relationship?: Yes
[2024-07-15 12:21] LABS: Absolute Neutrophil Count 11.05 10^3/uL (1.2-6.7)
[2024-07-15 12:34] LABS: Diff Comment Agrees w/ Instrument; RBC Morphology Normal
[2024-07-15 12:41] LABS: ALT 31 U/L (14-59); AST 13 U/L (15-37); Albumin 3.1 g/dL (3.4-5.0); Alkaline Phosphatase 90 U/L (46-116); Anion Gap 8.4 mmol/L (3-11); BUN 16 mg/dL (7-18); Bilirubin, Total 0.4 mg/dL (0.2-1.0); CO2 27.6 mmol/L (21.0-32.0); CREATININE 0.6 mg/dL (0.55-1.02); Chloride 104 mmol/L (98-107); Estimated GFR 93.55 (mL/min/1.73m2); Glucose 114 mg/dL (74-106); NT-proBNP 205 pg/mL (<300); Potassium 3.5 mmol/L (3.5-5.1); Sodium 140 mmol/L (136-145); Total Protein 6.9 g/dL (6.4-8.2)
[2024-07-15] MEDS: Albuterol/Ipratropium 3 ML UPD VIAL UPD (12:46)
[2024-07-15 13:21] LABS: COVID-19 PCR Negative (Negative); Influenza A PCR Negative (Negative); Influenza B PCR Negative (Negative); RSV PCR Negative (Negative)
[2024-07-15 13:22] LABS: Source Nasopharynx
[2024-07-15 13:22] LABS: Troponin I 8 ng/L (<or=51)
--- NOTE | 2024-07-15 13:26 | DI.RAD_ITS ---
Exam(s) XR CHEST 2V PA LATERAL EXAM: XR CHEST 2V PA LATERAL CLINICAL HISTORY: SOB TECHNIQUE: 2D digital imaging was performed. Two views. COMPARISON: CT CT CHEST PE CTA from 02/03/2021 CR XR CHEST 2V PA LATERAL from 10/25/2021 CR XR CHEST 2V PA LATERAL from 05/30/2022 FINDINGS: HEART: Mildly enlarged. Pacemaker. Aorta: Mildly dilated. PULMONARY VASCULATURE: Mildly prominent. MEDIASTINUM: Unremarkable. LUNGS: Increased densities beneath the right hilum could indicate superimposed infiltrate. Question a rounded density in the right mid lung field, beneath the level of the pacemaker battery pack. Mild ly increased densities near the lung bases could indicate mild pulmonary edema. PLEURAL SPACE: No minimal blunting at the costophrenic angles could indicate tiny effusions. BONE:Unremarkable for age. SOFT TISSUES: Unremarkable. IMPRESSION: Findings consistent mild CHF. Question additional superimposed right middle lobe infiltrate. Question of a mass in the right mid lung field. CT recommended for further evaluation. Unexpected findings DATA REPOSITORY: RADIATION DOSE DELIVERED:
[2024-07-15] MEDS: Doxycycline Hyclate 100 MG CAP PO (14:13)
[2024-07-15] MEDS: Doxycycline Hyclate 100 MG, 2 CAPS/BTL PO (14:13)
== END 2024-07-15 14:11 | disposition home or self-care (01) ==
PROVIDERS: Emergency Provider Registered Nurse Emergency; PCP Family Medicine
DX: J18.9 Pneumonia, unspecified organism (principal); I10 Essential (primary) hypertension; J44.9 Chronic obstructive pulmonary disease, unspecified; I25.10 Atherosclerotic heart disease of native coronary artery without angina pectoris; Z95.0 Presence of cardiac pacemaker; Z95.5 Presence of coronary angioplasty implant and graft; Z79.82 Long term (current) use of aspirin; Z87.891 Personal history of nicotine dependence
CPT/HCPCS: 36415; 80053; 82805; 87040; 87637; 93005; 94640; 99285; 71046; 83880; 84484; 85025; 93010; J7620

== ENCOUNTER 2024-07-31 03:35 | Outpatient (CLI) | payer MEDICARE, SELFPAY ==
[2024-07-31 13:15] LABS: TSH (W/Ref FT4) 2.01 uIU/mL (0.36-3.74)
== END 2024-07-31 03:36 | disposition home or self-care (01) ==
LOC: LOS 03:35
PROVIDERS: PCP Family Medicine; Visit Provider Family Medicine
DX: Z00.00 Encounter for general adult medical examination without abnormal findings (principal)
CPT/HCPCS: 36415; 84443

== ENCOUNTER 2024-08-06 00:50 | Outpatient (CLI) | payer MEDICARE, SELFPAY ==
--- NOTE | 2024-08-06 07:00 | DI.CT_ITS ---
Exam(s) CT CHEST WO EXAM: CT CHEST WO CLINICAL HISTORY: f/u abnl CXR,r91.8,rml pulmonary infiltrate,? mass rt mid lung field. TECHNIQUE: Imaging protocol: Axial computed tomography images were obtained and coronal and sagittal reformatted images were created and reviewed. Lung Computer Aided Detection (CAD) was utilized. CT CT CHEST PE CTA from 02/03/2021 CR XR CHEST 2V PA LATERAL from 05/30/2022 CR XR CHEST 2V PA LATERAL from 07/15/2024 FINDINGS: Tracheobronchial tree: Patent where visualized. No bronchiectasis is present. Pulmonary parenchyma: Emphysematous changes are present in the lungs. There is a new 2.1 cm right lo wer lobe pulmonary mass (series 2, image 71). There is scarring or atelectasis in the right middle l obe. No focal consolidating infiltrates are seen. No other pulmonary nodules are seen. Mediastinum and Jer[place]: No dominant adenopathy or fluid collection. The esophagus is unremarkable. Thyroid gland: Unremarkable. Pleura: No effusion or pneumothorax. Heart: The heart is not dilated. Three vessel coronary artery calcification is present. There is mil d pericardial thickening versus small pericardial effusion. Aorta: Thoracic aorta non-dilated. Atherosclerotic calcification is present. Upper abdomen: There is unchanged nodularity of the right adrenal gland. The left adrenal gland is unremarkable. There is again seen a left lateral wall hernia containing loops of colon. This is bee n present on prior examinations. Lymph nodes: No significant axillary or supraclavicular adenopathy. Tubes, Catheters, and Lines: There is a cardiac pacing device present. Soft tissues: Unremarkable. Bones:Within normal limits for the patient's age. IMPRESSION: 1. 2.1 cm new right lower lobe pulmonary mass suspicious for neoplasm. 2. No definite evidence of thoracic metastatic disease. 3. Stable findings in the upper abdomen as described above. RADIATION DOSE DELIVERED: 298.93mGy.cm Total DLP 298.93mGy.cm Total DLP DATA REPOSITORY: All CT scans at this facility are submitted to the National Radiology Data Registry (NRDR) Dose Index Registry (DIR) with the [employer] (A[employer]). RADIATION OPTIMIZATION: All CT scans at this facility use at least one of these dose optimization te chniques: automated exposure control; mA and/or kV adjustment per patient size (includes targeted exa ms where dose is matched to clinical indication); or iterative reconstruction.
== END 2024-08-06 01:10 ==
LOC: DI 00:50
PROVIDERS: PCP Family Medicine; Visit Provider Family Medicine
DX: R91.8 Other nonspecific abnormal finding of lung field (principal)
CPT/HCPCS: 71250

== ENCOUNTER → 2024-09-03 11:19 | Outpatient (BNVA) | payer MEDICARE, SELFPAY | PROVIDERS: PCP Family Medicine; Referring Provider Family Medicine; Visit Provider Registered Nurse | DX: Z45.010 Encounter for checking and testing of cardiac pacemaker pulse generator [battery] (principal); J43.9 Emphysema, unspecified; I49.5 Sick sinus syndrome; I44.2 Atrioventricular block, complete | CPT/HCPCS: 93280; 99214 ==

== ENCOUNTER → 2024-11-13 09:44 | Outpatient (BNVA) | payer MEDICARE, SELFPAY | PROVIDERS: PCP Family Medicine; Referring Provider Family Medicine; Visit Provider Internal Medicine Pulmonary Disease | DX: J44.9 Chronic obstructive pulmonary disease, unspecified (principal); R91.8 Other nonspecific abnormal finding of lung field; R05.3 Chronic cough; Z87.891 Personal history of nicotine dependence | CPT/HCPCS: 99215 ==

== ENCOUNTER → 2025-04-01 11:07 | Outpatient (BNVA) | payer MEDICARE, SELFPAY | PROVIDERS: PCP Family Medicine; Referring Provider Family Medicine; Visit Provider Registered Nurse | DX: I44.2 Atrioventricular block, complete (principal); I49.5 Sick sinus syndrome; Z45.018 Encounter for adjustment and management of other part of cardiac pacemaker; I10 Essential (primary) hypertension; J44.9 Chronic obstructive pulmonary disease, unspecified; Z79.811 Long term (current) use of aromatase inhibitors | CPT/HCPCS: 93280 ==

== ENCOUNTER 2025-04-06 10:52 | Inpatient (IN) | payer MEDICARE, SELFPAY ==
[2025-04-06] VITALS (11 sets, daily range): BP systolic 97–161; BP diastolic 58–93; PULSE 62–84; RESP 16–24; TEMP 35.6–37.2; O2SAT 87–98
--- NOTE | 2025-04-06 11:15 | RT.EKG_ITS ---
APPROVED REPORT Exam: Resting ECG Reason for Exam: SOB Patient Location: E HR:66 bpm ECG Measurements Heart Rate 66 AXIS NC 196 P [id number] QRSd 117 QRS 46 QT 407 T -4 QTc 426 Conclusion Atrial-paced complexes...other complexes also detected Nonspecific intraventricular conduction delay...QRSd >115mS, not LBBB/RBBB Abnrm R prog, consider ASMI or lead placement...Q >30mS, diminished R, V1-V2 No Occlusion MN
--- NOTE | 2025-04-06 12:00 | DI.RAD_ITS ---
Exam(s) XR PORTABLE CHEST AP EXAM: XR PORTABLE CHEST AP CLINICAL HISTORY: Shortness of breath TECHNIQUE: 2D digital imaging was performed. COMPARISON: CR XR CHEST 2V PA LATERAL from 07/15/[address] CHEST WO from 08/06/2024 FINDINGS: LUNGS: 2.5 cm nodule again noted lateral to the right hilum. No focal area of consolidation.. No pleural abnormality seen. HEART: Enlarged. Pacemaker. AORTA: Normal diameter. BONES: Unremarkable for age. Soft tissues: Unremarkable. IMPRESSION: 2.5 centimeter right lower lobe nodule seen on prior CT. No acute findings. DATA REPOSITORY: RADIATION DOSE DELIVERED:
[2025-04-06 12:32] LABS: Abs Immature Grans 0.06 10^3/uL (0.0-0.06); HCT 40.5 % (36.0-46.0); HGB 13.1 g/dL (11.2-15.7); Immature Grans % 0.5 %; MCH 30.0 pg (27.0-33.0); MCHC 32.3 % (32.0-36.0); MCV 93 fL (80-95); MPV 11.9 fL (8.0-11.0); Platelet Count 245 10^3/uL (130-400); RBC 4.36 10^6/uL (3.93-5.22); RDW 14.6 % (11.7-14.6); RDW-SD 49.8 fL; WBC 11.83 10^3/uL (4.4-10.8)
[2025-04-06 12:34] LABS: BE (Venous) 5 mmol/L (-2-3); HCO3 (Venous) 31 mmol/L (23-28); O2 Sat (Venous) 45 %; TCO2 (Venous) 28 mmol/L (24-29); pCO2 (Venous) 52 mmHg (41-51); pO2 (Venous) 28 mmHg
[2025-04-06 12:53] LABS: Magnesium 2.0 mg/dL (1.6-2.6)
--- NOTE | 2025-04-06 12:53 | W.ED.GENAD ---
Discharge Plan Disposition Patient Disposition: Admit to [facility] Discharge Details Clinical Impression: Acute respiratory failure with hypoxia and hypercarbia, COPD with acute exacerbation Primary Care Provider: Radha Anne ED Provider: Chris Rizzo Home Meds and New Rx's Prescriptions: No Action nitroglycerin 0.4 mg tablet, sublingual 0.4 mg sublingual Q5-15M PRN (Reason: chest pain) Qty: 25 0RF Rx Instructions: take as needed q 5 mins for c/p until gone if take 3 pills and pain persists, call lisinopril 40 mg tablet 40 mg PO DAILY Qty: 90 3RF metoprolol tartrate 25 mg tablet 25 mg PO BID Qty: 180 4RF Zyrtec 10 mg capsule 10 mg PO DAILY amlodipine 10 mg tablet 10 mg PO DAILY Qty: 90 3RF aspirin [Aspirin Low-Strength] 81 MG tablet,chewable 81 mg PO DAILY ibuprofen 200 MG tablet 2 tab PO HS (DME) POCKET CHAMBER Spacer See Rx Instructions .Route Qty: 1 0RF Rx Instructions: As directed albuterol sulfate 90 mcg/actuation HFA aerosol inhaler 1 - 2 puff Inhalation Q4H PRN Qty: 1 2RF albuterol sulfate 2.5 mg /3 mL (0.083 %) solution for nebulization 2.5 mg Inhalation q4-6 h prn Qty: 1 4RF fluticasone furoate-vilanterol [Breo Ellipta] 200-25 mcg/dose blister with device 1 inh inhalation DAILY Qty: 60 5RF HPI General Date/Time Provider Initiated Documentation: 04/06/25 11:54. HPI Narrative: MDM This is a hypoxic but not tachycardic 74-year-old female with cough shortness of breath history of reactive airway disease within the expiratory wheezes for which patient will receive nebulized ipratropium albuterol, prednisone, and doxycycline. Given her new onset hypoxia will plan for hospitalization. Given productive cough my suspicion is low for PE so I did not send a D-dimer. Will obtain chest x-ray to assess for infiltrate. No significant lower extremity edema and no history of acute heart failure to suggest acute CHF. Will obtain troponin to assess for myocardial injury. ECG showing atrial paced rhythm. Not meeting Sgarbossa criteria for ischemia. No chest pain to suggest pneumothorax and no trauma with equal breath sounds. I considered sepsis however the patient does not have markedly abnormal vital signs beyond her hypoxia so we will defer broad-spectrum antibiotics and blood cultures at this point. 1 PM Venous gas showing mild hypercarbia. No acidemia. 2:07 PM Initial reassuring troponin. Patient's troponin subsequently increased to 36 ng/L from 33. Will obtain a third troponin. Basic metabolic panel no MAGDALENE. No acute electrolyte abnormalities. Normal reassuring magnesium. No acute findings on chest x-ray. Right lower lung nodule. CBC with no leukocytosis. Will repeat troponin now. 3:10 PM Repeat reassuring troponin. Given acute respiratory failure with hypoxia and hypercarbia will reach out to hospitalist with request for hospitalization. I updated patient and son on plan for hospitalization. I was in touch with Dr. Montalvo who graciously agreed to accept the patient for hospitalization. HPI This is a patient with a history of COPD presenting with congestion. She reports experiencing congestion in her head, which began on , 04/02/2025. The most severe symptoms she is experiencing are nausea and vomiting. She has not had any fevers but has been producing a significant amount of sputum. She is currently on home oxygen therapy. She has a known history of COPD but has not increased her inhaler usage. She reports no chest pain, leg swelling, or unintentional weight gain. She also reports no recent exposure to sick individuals. Her last course of antibiotics for pneumonia was over a year ago. She has no known cardiac issues. Exam General: Well-appearing in no acute distress speaking in complete sentences. Head: Normocephalic, atraumatic. Eye: Extraocular eye movements intact. No conjunctival injection. No scleral icterus. Ear, nose, mouth, throat: Grossly normal inspection. Normal voice, handling secretions normally. Neck: Trachea midline. Cardiovascular: Well-perfused distal extremities. Regular rate and rhythm. Respiratory: Nonlabored respiration. Prolonged end expiratory wheeze. No stridor. No respiratory distress. Gastrointestinal: Nondistended abdomen. Soft. Nontender. Musculoskeletal: No significant lower extremity pitting edema. Moving all 4 extremities spontaneously. Skin: Normal for age and race, grossly normal temperature and turgor. No acute rash. Neurologic: Alert and appropriate, no apparent acute deficits. Related Data Home Medications ?Medication ?Instructions ?Recorded ?Confirmed aspirin 81 mg chewable tablet 81 mg PO DAILY 09/16/12 04/06/25 (Aspirin Low-Strength) ibuprofen 200 mg tablet 2 tab PO HS 12/29/15 04/06/25 inhalational spacing device #1 ea 07/25/21 04/06/25 (POCKET CHAMBER spacer) nitroglycerin 0.4 mg sublingual 0.4 mg sublingual Q5-15M PRN chest 02/01/22 04/06/25 tablet pain #25 tabs albuterol sulfate 90 mcg/actuation 1 - 2 puff inhalation Q4H PRN ##1 01/01/24 04/06/25 aerosol inhaler lisinopril 40 mg tablet 40 mg PO DAILY #90 tabs 06/05/24 04/06/25 albuterol sulfate 2.5 mg/3 mL 2.5 mg (3 mL) inhalation q4-6 h 07/08/24 04/06/25 (0.083 %) solution for nebulization prn ##1 amlodipine 10 mg tablet 10 mg PO DAILY #90 tabs 10/10/24 04/06/25 cetirizine 10 mg capsule (Zyrtec) 10 mg PO DAILY 10/10/24 04/06/25 metoprolol tartrate 25 mg tablet 25 mg PO BID #180 tabs 01/09/25 04/06/25 fluticasone furoate 200 1 inh inhalation DAILY #60 ea 02/23/25 04/06/25 mcg-vilanterol 25 mcg/dose inhalation powder (Breo Ellipta) Previous Rx's ?Medication ?Instructions ?Recorded inhalational spacing device #1 ea 07/25/21 (POCKET CHAMBER spacer) nitroglycerin 0.4 mg sublingual 0.4 mg sublingual Q5-15M PRN chest 02/01/22 tablet pain #25 tabs albuterol sulfate 90 mcg/actuation 1 - 2 puff inhalation Q4H PRN ##1 01/01/24 aerosol inhaler lisinopril 40 mg tablet 40 mg PO DAILY #90 tabs 06/05/24 albuterol sulfate 2.5 mg/3 mL 2.5 mg (3 mL) inhalation q4-6 h 07/08/24 (0.083 %) solution for nebulization prn ##1 amlodipine 10 mg tablet 10 mg PO DAILY #90 tabs 10/10/24 metoprolol tartrate 25 mg tablet 25 mg PO BID #180 tabs 01/09/25 fluticasone furoate 200 1 inh inhalation DAILY #60 ea 02/23/25 mcg-vilanterol 25 mcg/dose inhalation powder (Breo Ellipta) Allergies Allergy/AdvReac Type Severity Reaction Status Date / Time Gadolinium-Containing Allergy Intermediate Hives Verified 04/06/25 11:29 Contrast Medi hydrochlorothiazide Allergy Intermediate rash/hives Verified 04/06/25 11:29 spironolactone Allergy Intermediate RASH, Verified 04/06/25 11:29 ITCHING, NAUSEA, H/A carisoprodol AdvReac Severe GI UPSET Verified 04/06/25 11:29 codeine AdvReac Severe GI UPSET Verified 04/06/25 11:29 hydromorphone HCl (From AdvReac Severe HEAD FEELS Verified 04/06/25 11:29 Dilaudid) FUNNY levofloxacin AdvReac Severe RED FACE Verified 04/06/25 11:29 AND CHEST, NOT FEEL WELL oxycodone AdvReac Severe GI UPSET Verified 04/06/25 11:29 triamcinolone acetonide AdvReac Severe BURN AND Verified 04/06/25 11:29 (From Kenalog) ITCH amlodipine AdvReac Intermediate Nausea Verified 04/06/25 11:29 atorvastatin AdvReac Intermediate MYALGIA Verified 04/06/25 11:29 pravastatin AdvReac Intermediate MYALGIA Verified 04/06/25 11:29 simvastatin AdvReac Intermediate MYALGIAS Verified 04/06/25 11:29 losartan AdvReac Mild foggy Verified 04/06/25 11:29 headed rosuvastatin AdvReac Mild HEARTBURN Verified 04/06/25 11:29 atenolol AdvReac Unknown Other (See Verified 04/06/25 11:29 Comment) Sulfa (Sulfonamide AdvReac Unknown NAUSEA, Verified 04/06/25 11:29 Antibiotics) VOMITING RED YEAST RICE AdvReac Severe Other (See Uncoded 04/06/25 11:29 Comment) General Stated Complaint: SOB OSEI: 3 Course Vital Signs Vital signs: Vital Signs Temperature 36.6 C 04/06/25 11:20 Pulse 70 04/06/25 11:20 Respiratory Rate 24 04/06/25 11:20 Blood Pressure 161/84 H 04/06/25 11:20 Pulse Oximetry 88 L 04/06/25 11:20 Temperature 36.6 C 04/06/25 11:20 Temperature Source Oral 04/06/25 11:20 Pulse 70 04/06/25 11:20 Respiratory Rate 24 04/06/25 11:20 Blood Pressure 161/84 H 04/06/25 11:20 Blood Pressure Position Sitting 04/06/25 11:20 Pulse Oximetry 88 L 04/06/25 11:20 Oxygen Delivery Method Room Air 04/06/25 11:20 Oxygen Flow Rate 0 04/06/25 11:20 Pain Level 0 04/06/25 11:20 Lab/Test Results Lab/Test Results: Laboratory Tests Range/Units 04/06/25 12:23 VBG pH (7.31-7.41) 7.38 VBG pCO2 (41-51) mmHg 52 H VBG pO2 mmHg 28 VBG HCO3 (23-28) mmol/L 31 H VBG Total CO2 (24-29) mmol/L 28 VBG O2 Saturation % 45 VBG Base Excess (-2-3) mmol/L 5 H Magnesium (1.6-2.6) mg/dL 2.0 PFSH All Active Problems (Updated 04/06/25 @ 15:34 by Ryan Montalvo MD) Acute hypoxemic respiratory failure (Acute) COPD with acute exacerbation (Acute) Acute respiratory failure with hypoxia and hypercarbia (Acute) Chronic cough (Acute) Right lower lobe lung mass (Chronic 07/2024) 2.1 cm suspiciousn for CA; patient declines further evaluation, aware of diagnosis potential. 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 s/p RCA stenting b. 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 s/p splenectomy but CT scan at [facility] [place] showing splenosis, thus probably no immuno-impaired Ligation of fallopian tube BSO Stent placement (~06/2008) X 1 Family History (Updated 07/25/24 @ 11:25 by Radha Anne MD) Mother Essential hypertension Aortic aneurysm Father Heart disease SIBLINGS (8) Essential hypertension Aortic aneurysm Heart disease Hyperlipidemia Daughter , 48 Breast cancer Social History (Updated 07/25/24 @ 11:26 by Radha Anne MD) Smoking/Tobacco Use Status: Former Tobacco Use tobacco type: cigarettes Quit Date: 01/29/08 Tobacco: How many years used: 40 Second Hand Exposure: Yes Smoking risk assessment performed?: Yes Alcohol Intake: former Drug use: Never Substance use type: does not use Caregiver/Support person: No Household members: significant other Housing: house Number of Children: 5 Education Level: middle school Details: 8th grade Do you need help understanding health information?: Rarely current occupation: Worked in [employer], [employer], [employer] Pets and animals: No Sexually active: No Do you think of yourself as: straight/heterosexual Current gender identity: female What is your relationship status?: living with partner How often do you talk on the phone with friends or family?: once per week How often do you get together with friends or relatives?: never Do you belong to any clubs or organized social groups?: no Panel score (0-1 are the most socially isolated patients): 1 What type of physical activity do you participate in: other Details: house hold activities [place]/Mandaen: [employer] Special madison needs: No Do you feel safe at home: Yes Do you feel safe in your relationship?: Yes
[2025-04-06 12:54] LABS: Anion Gap 7.4 mmol/L (3-11); BUN 13 mg/dL (9-23); CO2 29.6 mmol/L (20.0-31.0); Calcium 9.6 mg/dL (8.3-10.6); Chloride 101 mmol/L (98-107); Glucose 95 mg/dL (74-106); Potassium 4.3 mmol/L (3.5-5.1); Sodium 138 mmol/L (136-145); Troponin I 33 ng/L (<35)
[2025-04-06 12:57] LABS: RBC Morphology Normal
[2025-04-06] MEDS: Doxycycline Hyclate 100 MG CAP PO ×2 (13:23→19:46)
[2025-04-06] MEDS: predniSONE 20 MG TAB 60 MG PO (13:23)
[2025-04-06] MEDS: Albuterol/Ipratropium 3 ML UPD VIAL UPD (13:23)
[2025-04-06 13:57] LABS: Troponin I 36 ng/L (<35)
[2025-04-06 15:05] LABS: Troponin I 35 ng/L (<35)
--- NOTE | 2025-04-06 15:25 | W.PM.HP.N ---
Date of service: 04/06/25 Time of Service: 15:25 Assessment and Plan Assessment and plan (1) COPD with acute exacerbation: Status: Acute Assessment and plan: -patient presented with SOB, cough, increased sputum production and hypoxia down to 87% while on room air -Given 60mg PO prednisone and 1x nebulizer treatment and PO doxy in ED -will continue prednisone 40mg daily, Q6hr nebulizers, PRN albuterol inhalers, and doxy BID (2) Acute hypoxemic respiratory failure: Status: Acute Assessment and plan: -patient appears to have history of chronic hypoxic respiratory failure documented down to 87% but declined home O2 -continue supplemental O2 with goal sat 88-92% (3) CAD (coronary artery disease): Status: Chronic Assessment and plan: -continue home asa, statin, metoprolol tartrate and PRN SL nitro (4) Hypertension: Status: Chronic Assessment and plan: -continue home lisinopril and amlodipine History of Present Illness History of Present Illness Chief Complaint: SOB Narrative: 74-year-old female with a past medical history of COPD, combined emphysema and pulmonary fibrosis, coronary artery disease and hypertension who presents to the emergency department with congestion, shortness of breath, nausea and vomiting. She states that she has been congested since 04/02/2025 but she has been experiencing increasing episodes of nausea and vomiting. She also complains of some shortness of breath and states that she has been producing significant amount of sputum. She denies any fevers, lightheadedness, dizziness, chest pain or abdominal pain. In the emergency department the patient was noted to have normal vital signs and initial pulse ox of 88% on room air. Physical exam showed expiratory wheezing throughout lung bolton, chest x-ray was performed did not show any acute findings, no other did a CBC or CMP. However patient was noted to desaturate down to 87% and was placed on 2 L nasal cannula. Patient was given 60 mg p.o. prednisone, 100 mg of p.o. doxycycline, and nebulizer treatment without improvement. At which time emergency room provider paged hospitalist for admission for patient with an acute exacerbation of COPD and acute hypoxic respiratory failure. Review of Systems All systems reviewed & are unremarkable except as noted in HPI and below PFSH All Active Problems (Updated 04/06/25 @ 15:34 by Ryan Montalvo MD) Acute hypoxemic respiratory failure (Acute) COPD with acute exacerbation (Acute) Acute respiratory failure with hypoxia and hypercarbia (Acute) Chronic cough (Acute) Right lower lobe lung mass (Chronic 07/2024) 2.1 cm suspiciousn for CA; patient declines further evaluation, aware of diagnosis potential. 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 s/p RCA stenting b. 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 s/p splenectomy but CT scan [place] [facility] showing splenosis, thus probably no immuno-impaired Ligation of fallopian tube BSO Stent placement (~06/2008) X 1 Family History (Updated 07/25/24 @ 11:25 by Radha Anne MD) Mother Essential hypertension Aortic aneurysm Father Heart disease SIBLINGS (8) Essential hypertension Aortic aneurysm Heart disease Hyperlipidemia Daughter , 48 Breast cancer Social History (Updated 07/25/24 @ 11:26 by Radha Anne MD) Smoking/Tobacco Use Status: Former Tobacco Use tobacco type: cigarettes Quit Date: 01/29/08 Tobacco: How many years used: 40 Second Hand Exposure: Yes Smoking risk assessment performed?: Yes Alcohol Intake: former Drug use: Never Substance use type: does not use Caregiver/Support person: No Household members: significant other Housing: house Number of Children: 5 Education Level: middle school Details: 8th grade Do you need help understanding health information?: Rarely current occupation: Worked in [employer], [employer], [employer] Pets and animals: No Sexually active: No Do you think of yourself as: straight/heterosexual Current gender identity: female What is your relationship status?: living with partner How often do you talk on the phone with friends or family?: once per week How often do you get together with friends or relatives?: never Do you belong to any clubs or organized social groups?: no Panel score (0-1 are the most socially isolated patients): 1 What type of physical activity do you participate in: other Details: house hold activities [place]/Cheondoism: Pentecostalism Special [place] needs: No Do you feel safe at home: Yes Do you feel safe in your relationship?: Yes Meds Allergies and Home Medications Allergies Allergy/AdvReac Type Severity Reaction Status Date / Time Gadolinium-Containing Allergy Intermediate Hives Verified 04/06/25 11:29 Contrast Medi hydrochlorothiazide Allergy Intermediate rash/hives Verified 04/06/25 11:29 spironolactone Allergy Intermediate RASH, Verified 04/06/25 11:29 ITCHING, NAUSEA, H/A carisoprodol AdvReac Severe GI UPSET Verified 04/06/25 11:29 codeine AdvReac Severe GI UPSET Verified 04/06/25 11:29 hydromorphone HCl (From AdvReac Severe HEAD FEELS Verified 04/06/25 11:29 Dilaudid) FUNNY levofloxacin AdvReac Severe RED FACE Verified 04/06/25 11:29 AND CHEST, NOT FEEL WELL oxycodone AdvReac Severe GI UPSET Verified 04/06/25 11:29 triamcinolone acetonide AdvReac Severe BURN AND Verified 04/06/25 11:29 (From Kenalog) ITCH amlodipine AdvReac Intermediate Nausea Verified 04/06/25 11:29 atorvastatin AdvReac Intermediate MYALGIA Verified 04/06/25 11:29 pravastatin AdvReac Intermediate MYALGIA Verified 04/06/25 11:29 simvastatin AdvReac Intermediate MYALGIAS Verified 04/06/25 11:29 losartan AdvReac Mild foggy Verified 04/06/25 11:29 headed rosuvastatin AdvReac Mild HEARTBURN Verified 04/06/25 11:29 atenolol AdvReac Unknown Other (See Verified 04/06/25 11:29 Comment) Sulfa (Sulfonamide AdvReac Unknown NAUSEA, Verified 04/06/25 11:29 Antibiotics) VOMITING RED YEAST RICE AdvReac Severe Other (See Uncoded 04/06/25 11:29 Comment) Home Medications ?Medication ?Instructions ?Recorded ?Confirmed ?Type aspirin 81 mg chewable tablet 81 mg PO DAILY 09/16/12 04/06/25 History (Aspirin Low-Strength) ibuprofen 200 mg tablet 2 tab PO HS 12/29/15 04/06/25 History inhalational spacing device #1 ea 07/25/21 04/06/25 Rx (POCKET CHAMBER spacer) nitroglycerin 0.4 mg sublingual 0.4 mg sublingual Q5-15M PRN chest 02/01/22 04/06/25 Rx tablet pain #25 tabs albuterol sulfate 90 mcg/actuation 1 - 2 puff inhalation Q4H PRN ##1 01/01/24 04/06/25 Rx aerosol inhaler lisinopril 40 mg tablet 40 mg PO DAILY #90 tabs 06/05/24 04/06/25 Rx albuterol sulfate 2.5 mg/3 mL 2.5 mg (3 mL) inhalation q4-6 h 07/08/24 04/06/25 Rx (0.083 %) solution for nebulization prn ##1 amlodipine 10 mg tablet 10 mg PO DAILY #90 tabs 10/10/24 04/06/25 Rx cetirizine 10 mg capsule (Zyrtec) 10 mg PO DAILY 10/10/24 04/06/25 History metoprolol tartrate 25 mg tablet 25 mg PO BID #180 tabs 01/09/25 04/06/25 Rx fluticasone furoate 200 1 inh inhalation DAILY #60 ea 02/23/25 04/06/25 Rx mcg-vilanterol 25 mcg/dose inhalation powder (Breo Ellipta) Exam Narrative Exam Narrative: well appearing older female sitting up on the edge of the best in no acute distress, AOx4, heart RRR, lungs with expiratory wheezing heard throughout bilateral lung bolton, abdomen soft, non-tender, non-distended Results Labs 04/06/25 12:23 04/06/25 12:23 Labs: Laboratory Results - last 24 hr 04/06/25 04/06/25 04/06/25 12:23 13:28 14:19 WBC 11.83 H RBC 4.36 Hgb 13.1 Hct 40.5 MCV 93 MCH 30.0 MCHC 32.3 RDW 14.6 Plt Count 245 MPV 11.9 H Immature Gran % 0.5 Neutrophils % 79.3 Lymphocytes % 9.0 Monocytes % 10.0 Eosinophils % 0.8 Basophils % 0.4 Nucleated RBC % 0.0 Absolute Neutrophils 9.38 H Absolute Lymphocytes 1.06 L Absolute Monocytes 1.18 H Absolute Eosinophils 0.09 Absolute Basophils 0.05 RBC Morphology Normal VBG pH 7.38 VBG pCO2 52 H VBG pO2 28 VBG HCO3 31 H VBG Total CO2 28 VBG O2 Saturation 45 VBG Base Excess 5 H Sodium 138 Potassium 4.3 Chloride 101 Carbon Dioxide 29.6 Anion Gap 7.4 BUN 13 Creatinine 0.63 Est GFR (CKD-EPI 2020) 91.74 Glucose 95 Calcium 9.6 Magnesium 2.0 Troponin I 33 36 H* 35 Last Vital Signs Temp 97.8 F 04/06/25 11:20 Pulse 66 04/06/25 13:23 Resp 16 04/06/25 13:23 BP 161/84 H 04/06/25 11:20 Pulse Ox 87 L 04/06/25 14:51 VTE Prohylaxis Risk Level: Moderate/High Risk Contraindications: None Prophylaxis: Pharmacologic Time Spent Time spent with Patient: >75 minutes Time was spent: preparing to see the patient(eg.review tests), obtaining and/or reviewing separately otained hiistory, ordering medications,tests, procedures, referring, communicating with other health health care manager, indepentently interpreting results, counseling the patient and care coordination
--- NOTE | 2025-04-06 17:02 | W.PC.ACHO ---
Registration Status: REG ER Primary Language: Preferred Language: Wolof ED Information & Data Chief Complaint SOB 04/06/25 12:59 Triage Note patient presented to the ER 04/06/25 11:20 reporting that she is difficulty breathing, state her sinuses feels full and her nose is burning. 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) Other fatigue (03/09/15) Hiatal hernia Abdominal aortic aneurysm Abdominal wall hernia Elevated brain natriuretic peptide (BNP) level (Last Updated 07/25/24 @ 11:22 by Radha Anne MD) History of aortic aneurysm repair (2009) History of bilateral ligation of fallopian tubes Status post bunionectomy Status post inguinal hernia repair History of splenectomy H/O surgical procedure Ligation of fallopian tube Stent placement (~06/2008) Most Recent Vital Signs Temperature 36.6 C 04/06/25 11:20 Temperature Source Oral 04/06/25 11:20 Pulse 62 04/06/25 15:29 Respiratory Rate 16 04/06/25 15:31 Respiratory Effort Non-Labored, Short of Breath 04/06/25 15:31 Respiratory Depth Normal 04/06/25 15:31 Respiratory Pattern Normal 04/06/25 15:31 Blood Pressure 159/93 H 04/06/25 15:29 Blood Pressure Position Sitting 04/06/25 11:20 Pulse Oximetry 98 04/06/25 15:29 Oxygen Delivery Method Room Air 04/06/25 14:51 Oxygen Flow Rate 0 04/06/25 14:51 Pain Level 0 04/06/25 11:20 Comment trial RA pt spo2 88%RA this RN turned o2 back to 2l NC spo2 back to 93% 04/06/25 14:51 Allergies Gadolinium-Containing Contrast Medi Allergy (Intermediate, Verified 04/06/25 11:29) Hives hydrochlorothiazide Allergy (Intermediate, Verified 04/06/25 11:29) rash/hives spironolactone Allergy (Intermediate, Verified 04/06/25 11:29) RASH, ITCHING, NAUSEA, H/A carisoprodol Adverse Reaction (Severe, Verified 04/06/25 11:29) GI UPSET codeine Adverse Reaction (Severe, Verified 04/06/25 11:29) GI UPSET hydromorphone HCl (From Dilaudid) Adverse Reaction (Severe, Verified 04/06/25 11:29) HEAD FEELS FUNNY levofloxacin Adverse Reaction (Severe, Verified 04/06/25 11:29) RED FACE AND CHEST, NOT FEEL WELL oxycodone Adverse Reaction (Severe, Verified 04/06/25 11:29) GI UPSET triamcinolone acetonide (From Kenalog) Adverse Reaction (Severe, Verified 04/06/25 11:29) BURN AND ITCH amlodipine Adverse Reaction (Intermediate, Verified 04/06/25 11:29) Nausea atorvastatin Adverse Reaction (Intermediate, Verified 04/06/25 11:29) MYALGIA pravastatin Adverse Reaction (Intermediate, Verified 04/06/25 11:29) MYALGIA simvastatin Adverse Reaction (Intermediate, Verified 04/06/25 11:29) MYALGIAS losartan Adverse Reaction (Mild, Verified 04/06/25 11:29) foggy headed rosuvastatin Adverse Reaction (Mild, Verified 04/06/25 11:29) HEARTBURN atenolol Adverse Reaction (Unknown, Verified 04/06/25 11:29) Other (See Comment) Sulfa (Sulfonamide Antibiotics) Adverse Reaction (Unknown, Verified 04/06/25 11:29) NAUSEA, VOMITING RED YEAST RICE Adverse Reaction (Severe, Uncoded 04/06/25 11:29) Other (See Comment) Precautions Isolation Standard precaution 04/06/25 12:28 IV IV Catheter Type [Right [place] Lock Antecubital] IV Catheter Gauge [Right 20 Antecubital] Diagnostics 04/06/25 04/06/25 04/06/25 Range/Units 14:19 13:28 12:23 WBC 11.83 H (4.4-10.8) 10^3/uL RBC 4.36 (3.93-5.22) 10^6/uL Hgb 13.1 (11.2-15.7) g/dL Hct 40.5 (36.0-46.0) % MCV 93 (80-95) fL MCH 30.0 (27.0-33.0) pg MCHC 32.3 (32.0-36.0) % RDW 14.6 (11.7-14.6) % Plt Count 245 (130-400) 10^3/uL MPV 11.9 H (8.0-11.0) fL Immature Gran % 0.5 % Neutrophils % 79.3 % Lymphocytes % 9.0 % Monocytes % 10.0 % Eosinophils % 0.8 % Basophils % 0.4 % Nucleated RBC % 0.0 (0.0-0.3) % Absolute Neutrophils 9.38 H (1.2-6.7) 10^3/uL Absolute Lymphocytes 1.06 L (1.2-3.4) 10^3/uL Absolute Monocytes 1.18 H (0.1-0.8) 10^3/uL Absolute Eosinophils 0.09 (0.0-0.7) 10^3/uL Absolute Basophils 0.05 (0.0-0.2) 10^3/uL RBC Morphology Normal VBG pH 7.38 (7.31-7.41) VBG pCO2 52 H (41-51) mmHg VBG pO2 28 mmHg VBG HCO3 31 H (23-28) mmol/L VBG Total CO2 28 (24-29) mmol/L VBG O2 Saturation 45 % VBG Base Excess 5 H (-2-3) mmol/L Sodium 138 (136-145) mmol/L Potassium 4.3 (3.5-5.1) mmol/L Chloride 101 (98-107) mmol/L Carbon Dioxide 29.6 (20.0-31.0) mmol/L Anion Gap 7.4 (3-11) mmol/L BUN 13 (9-23) mg/dL Creatinine 0.63 (0.55-1.02) mg/dL Est GFR (CKD-EPI 2020) 91.74 (mL/min/1.73m2) Glucose 95 (74-106) mg/dL Calcium 9.6 (8.3-10.6) mg/dL Magnesium 2.0 (1.6-2.6) mg/dL Troponin I 35 36 H* 33 (<35) ng/L COVID-19 Source SARS-CoV-2 (PCR) Influenza Type A (PCR) Influenza Type B (PCR) RSV (PCR) 04/06/25 Range/Units 12:05 WBC (4.4-10.8) 10^3/uL RBC (3.93-5.22) 10^6/uL Hgb (11.2-15.7) g/dL Hct (36.0-46.0) % MCV (80-95) fL MCH (27.0-33.0) pg MCHC (32.0-36.0) % RDW (11.7-14.6) % Plt Count (130-400) 10^3/uL MPV (8.0-11.0) fL Immature Gran % % Neutrophils % % Lymphocytes % % Monocytes % % Eosinophils % % Basophils % % Nucleated RBC % (0.0-0.3) % Absolute Neutrophils (1.2-6.7) 10^3/uL Absolute Lymphocytes (1.2-3.4) 10^3/uL Absolute Monocytes (0.1-0.8) 10^3/uL Absolute Eosinophils (0.0-0.7) 10^3/uL Absolute Basophils (0.0-0.2) 10^3/uL RBC Morphology VBG pH (7.31-7.41) VBG pCO2 (41-51) mmHg VBG pO2 mmHg VBG HCO3 (23-28) mmol/L VBG Total CO2 (24-29) mmol/L VBG O2 Saturation % VBG Base Excess (-2-3) mmol/L Sodium (136-145) mmol/L Potassium (3.5-5.1) mmol/L Chloride (98-107) mmol/L Carbon Dioxide (20.0-31.0) mmol/L Anion Gap (3-11) mmol/L BUN (9-23) mg/dL Creatinine (0.55-1.02) mg/dL Est GFR (CKD-EPI 2020) (mL/min/1.73m2) Glucose (74-106) mg/dL Calcium (8.3-10.6) mg/dL Magnesium (1.6-2.6) mg/dL Troponin I (<35) ng/L COVID-19 Source Pending SARS-CoV-2 (PCR) Pending Influenza Type A (PCR) Pending Influenza Type B (PCR) Pending RSV (PCR) Pending Intake and Output - 24 Hour Total 04/06/25 10:52 thru 04/06/25 12:26 Intake Total 10 Balance 10 Weight 97.522 kg Intake: IV 10 Falls Risk Assessment History of Falls No History 04/06/25 12:28 Contributing Factors Impairments,Medications 04/06/25 12:28 Ambulatory Aids Uses ambulatory device + 04/06/25 12:28 Tubes/Lines With any additional score 04/06/25 12:28 Gait Evaluation W/any additional score 04/06/25 12:28 Cognition No cognitive impairment 04/06/25 12:28 Fall Total Score 76 04/06/25 12:28 Level of Risk Maximum Risk 04/06/25 12:28 Problems (Last Updated 07/25/24 @ 11:22 by Radha Anne MD) Acute hypoxemic respiratory failure (Acute) COPD with acute exacerbation (Acute) Acute respiratory failure with hypoxia and hypercarbia (Acute) CAD (coronary artery disease) (Chronic) Hypertension (Chronic) Attestation Statement: By documenting the first initial, last name, and credentials of the reporting nurse below, both parties acknowledge that all relevant information regarding the patient handoff has been communicated, and that all questions have been addressed to ensure continuity and safety of care. Additional Patient Information/Comments: Report Received From: Called Ed for report on new admission, time of call RN not available, attending to other patient, awaiting call back.
[2025-04-06 18:20] LABS: COVID-19 PCR Negative (Negative)
[2025-04-06 18:28] LABS: RSV PCR Positive (Negative)
[2025-04-06] MEDS: Albuterol 2.5 MG/3 ML INH SOLN VIAL UPD (18:47)
[2025-04-06] MEDS: Metoprolol 12.5 MG TAB 25 MG PO (19:46)
[2025-04-06] MEDS: Budesonide/Formoterol 80/4.5 6.9 GM 60 PUFF INH IH (21:12)
[2025-04-06] MEDS: Melatonin 3 MG TAB PO (21:17)
[2025-04-06] MEDS: Ibuprofen 400 MG TAB PO (21:20)
--- NOTE | 2025-04-06 21:55 | W.PC.ACHO ---
Registration Status: ADM IN Primary Language: Preferred Language: Maori ED Information & Data Chief Complaint SOB 04/06/25 12:59 Triage Note patient presented to the ER 04/06/25 11:20 reporting that she is difficulty breathing, state her sinuses feels full and her nose is burning. 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) Other fatigue (03/09/15) Hiatal hernia Abdominal aortic aneurysm Abdominal wall hernia Elevated brain natriuretic peptide (BNP) level (Last Updated 07/25/24 @ 11:22 by Radha Anne MD) History of aortic aneurysm repair (2009) History of bilateral ligation of fallopian tubes Status post bunionectomy Status post inguinal hernia repair History of splenectomy H/O surgical procedure Ligation of fallopian tube Stent placement (~06/2008) Most Recent Vital Signs Temperature 37.2 C 04/06/25 18:01 Temperature Source Tympanic 04/06/25 18:01 Pulse 79 04/06/25 18:53 Pulse Rhythm Regular 04/06/25 17:35 Respiratory Rate 24 04/06/25 18:53 Respiratory Effort Short of Breath 04/06/25 17:35 Respiratory Depth Normal 04/06/25 17:35 Respiratory Pattern Normal 04/06/25 17:35 Blood Pressure 159/82 H 04/06/25 18:01 Blood Pressure Mean 107 04/06/25 18:01 Blood Pressure Position Sitting 04/06/25 11:20 Pulse Oximetry 91 L 04/06/25 18:23 Oxygen Delivery Method Nasal Cannula 04/06/25 18:23 Oxygen Flow Rate 2 04/06/25 18:23 Pain Level 0 04/06/25 18:01 Comment trial RA pt spo2 88%RA this RN turned o2 back to 2l NC spo2 back to 93% 04/06/25 14:51 Allergies Gadolinium-Containing Contrast Medi Allergy (Intermediate, Verified 04/06/25 11:29) Hives hydrochlorothiazide Allergy (Intermediate, Verified 04/06/25 11:29) rash/hives spironolactone Allergy (Intermediate, Verified 04/06/25 11:29) RASH, ITCHING, NAUSEA, H/A carisoprodol Adverse Reaction (Severe, Verified 04/06/25 11:29) GI UPSET codeine Adverse Reaction (Severe, Verified 04/06/25 11:29) GI UPSET hydromorphone HCl (From Dilaudid) Adverse Reaction (Severe, Verified 04/06/25 11:29) HEAD FEELS FUNNY levofloxacin Adverse Reaction (Severe, Verified 04/06/25 11:29) RED FACE AND CHEST, NOT FEEL WELL oxycodone Adverse Reaction (Severe, Verified 04/06/25 11:29) GI UPSET triamcinolone acetonide (From Kenalog) Adverse Reaction (Severe, Verified 04/06/25 11:29) BURN AND ITCH amlodipine Adverse Reaction (Intermediate, Verified 04/06/25 11:29) Nausea atorvastatin Adverse Reaction (Intermediate, Verified 04/06/25 11:) MYALGIA pravastatin Adverse Reaction (Intermediate, Verified 04/06/25 11:29) MYALGIA simvastatin Adverse Reaction (Intermediate, Verified 04/06/25 11:29) MYALGIAS losartan Adverse Reaction (Mild, Verified 04/06/25 11:29) foggy headed rosuvastatin Adverse Reaction (Mild, Verified 04/06/25 11:29) HEARTBURN atenolol Adverse Reaction (Unknown, Verified 04/06/25 11:29) Other (See Comment) Sulfa (Sulfonamide Antibiotics) Adverse Reaction (Unknown, Verified 04/06/25 11:) NAUSEA, VOMITING RED YEAST RICE Adverse Reaction (Severe, Uncoded 04/06/25 11:29) Other (See Comment) Precautions Isolation Standard precaution 04/06/25 12:28 Active Medications Generic Name Dose Route Start Last Admin Trade Name Freq PRN Reason Stop Dose Admin Albuterol Sulfate 2.5 mg 04/06/25 17:25 04/06/25 18:47 Albuterol 2.5 Mg/3 Ml Inh Soln Vial UPD 2.5 mg Q2H PRN PRN Administration Albuterol/Ipratropium 3 ml 04/06/25 18:00 04/06/25 18:53 Albuterol/Ipratropium 3 Ml Upd Vial UPD Not Given Q6H ANIA Budesonide/Formoterol Fumarate 2 puff 04/06/25 20:00 04/06/25 21:12 Budesonide/Formoterol 80/4.5 6.9 Gm 60 Puff Inh IH 2 puff BID ANIA Administration Doxycycline Hyclate 100 mg 04/06/25 20:00 04/06/25 19:46 Doxycycline Hyclate 100 Mg Cap PO 100 mg BID ANIA Administration Ibuprofen 400 mg 04/06/25 21:15 04/06/25 21:20 Ibuprofen 400 Mg Tab PO 400 mg HS ANIA Administration Melatonin 3 mg 04/06/25 21:15 04/06/25 21:17 Melatonin 3 Mg Tab PO 3 mg HS ANIA Administration Metoprolol Tartrate 25 mg 04/06/25 20:00 04/06/25 19:46 Metoprolol 12.5 Mg Tab PO 25 mg BID ANIA Administration IV IV Catheter Type [Right Peripheral IV Antecubital] IV Catheter Gauge [Right 20 Antecubital] Diet Orders Category Date Time Status Heart Healthy Eating [DIET] Nutrition 04/06/25 Dinner Active Diagnostics 04/06/25 04/06/25 04/06/25 Range/Units 17:30 14:19 13:28 WBC (4.4-10.8) 10^3/uL RBC (3.93-5.22) 10^6/uL Hgb (11.2-15.7) g/dL Hct (36.0-46.0) % MCV (80-95) fL MCH (27.0-33.0) pg MCHC (32.0-36.0) % RDW (11.7-14.6) % Plt Count (130-400) 10^3/uL MPV (8.0-11.0) fL Immature Gran % % Neutrophils % % Lymphocytes % % Monocytes % % Eosinophils % % Basophils % % Nucleated RBC % (0.0-0.3) % Absolute Neutrophils (1.2-6.7) 10^3/uL Absolute Lymphocytes (1.2-3.4) 10^3/uL Absolute Monocytes (0.1-0.8) 10^3/uL Absolute Eosinophils (0.0-0.7) 10^3/uL Absolute Basophils (0.0-0.2) 10^3/uL RBC Morphology VBG pH (7.31-7.41) VBG pCO2 (41-51) mmHg VBG pO2 mmHg VBG HCO3 (23-28) mmol/L VBG Total CO2 (24-29) mmol/L VBG O2 Saturation % VBG Base Excess (-2-3) mmol/L Sodium (136-145) mmol/L Potassium (3.5-5.1) mmol/L Chloride (98-107) mmol/L Carbon Dioxide (20.0-31.0) mmol/L Anion Gap (3-11) mmol/L BUN (9-23) mg/dL Creatinine (0.55-1.02) mg/dL Est GFR (CKD-EPI 2020) (mL/min/1.73m2) Glucose (74-106) mg/dL Calcium (8.3-10.6) mg/dL Magnesium (1.6-2.6) mg/dL Troponin I 35 36 H* (<35) ng/L COVID-19 Source Nasopharynx SARS-CoV-2 (PCR) Negative (Negative) Influenza Type A (PCR) Negative (Negative) Influenza Type B (PCR) Negative (Negative) RSV (PCR) Positive A* (Negative) 04/06/25 Range/Units 12:23 WBC 11.83 H (4.4-10.8) 10^3/uL RBC 4.36 (3.93-5.22) 10^6/uL Hgb 13.1 (11.2-15.7) g/dL Hct 40.5 (36.0-46.0) % MCV 93 (80-95) fL MCH 30.0 (27.0-33.0) pg MCHC 32.3 (32.0-36.0) % RDW 14.6 (11.7-14.6) % Plt Count 245 (130-400) 10^3/uL MPV 11.9 H (8.0-11.0) fL Immature Gran % 0.5 % Neutrophils % 79.3 % Lymphocytes % 9.0 % Monocytes % 10.0 % Eosinophils % 0.8 % Basophils % 0.4 % Nucleated RBC % 0.0 (0.0-0.3) % Absolute Neutrophils 9.38 H (1.2-6.7) 10^3/uL Absolute Lymphocytes 1.06 L (1.2-3.4) 10^3/uL Absolute Monocytes 1.18 H (0.1-0.8) 10^3/uL Absolute Eosinophils 0.09 (0.0-0.7) 10^3/uL Absolute Basophils 0.05 (0.0-0.2) 10^3/uL RBC Morphology Normal VBG pH 7.38 (7.31-7.41) VBG pCO2 52 H (41-51) mmHg VBG pO2 28 mmHg VBG HCO3 31 H (23-28) mmol/L VBG Total CO2 28 (24-29) mmol/L VBG O2 Saturation 45 % VBG Base Excess 5 H (-2-3) mmol/L Sodium 138 (136-145) mmol/L Potassium 4.3 (3.5-5.1) mmol/L Chloride 101 (98-107) mmol/L Carbon Dioxide 29.6 (20.0-31.0) mmol/L Anion Gap 7.4 (3-11) mmol/L BUN 13 (9-23) mg/dL Creatinine 0.63 (0.55-1.02) mg/dL Est GFR (CKD-EPI 2020) 91.74 (mL/min/1.73m2) Glucose 95 (74-106) mg/dL Calcium 9.6 (8.3-10.6) mg/dL Magnesium 2.0 (1.6-2.6) mg/dL Troponin I 33 (<35) ng/L COVID-19 Source SARS-CoV-2 (PCR) (Negative) Influenza Type A (PCR) (Negative) Influenza Type B (PCR) (Negative) RSV (PCR) (Negative) Intake and Output - 24 Hour Total 04/06/25 10:52 thru 04/06/25 21:00 Intake Total 10 Balance 10 Weight 95.9 kg Intake: IV 10 Other: Urine Color Yellow Urine Appearance Clear Falls Risk Assessment History of Falls No History 04/06/25 17:35 Contributing Factors No Factors 04/06/25 17:35 Ambulatory Aids Independent 04/06/25 17:35 Tubes/Lines W/no contributing factors 04/06/25 17:35 Gait Evaluation W/any additional score 04/06/25 12:28 Cognition No cognitive impairment 04/06/25 12:28 Fall Total Score 10 04/06/25 17:35 Level of Risk Standard/Low Risk 04/06/25 17:35 Problems (Last Updated 07/25/24 @ 11:22 by Radha Anne MD) Acute hypoxemic respiratory failure (Acute) COPD with acute exacerbation (Acute) Acute respiratory failure with hypoxia and hypercarbia (Acute) CAD (coronary artery disease) (Chronic) Hypertension (Chronic) Attestation Statement: By documenting the first initial, last name, and credentials of the reporting nurse below, both parties acknowledge that all relevant information regarding the patient handoff has been communicated, and that all questions have been addressed to ensure continuity and safety of care. Additional Patient Information/Comments facial abscess, pt is homeless, on methadon treatment, recieved 1L of [place] AVERY unacyn at the ER, [facility] henry. all question answered Report Received From: Jose E Miller RN
[2025-04-07 03:30] VITALS: BP 126/74; PULSE 58; RESP 17; TEMP 35.9; O2SAT 89
[2025-04-07] MEDS: Albuterol/Ipratropium 3 ML UPD VIAL UPD (06:27)
[2025-04-07 06:51] LABS: HCT 40.1 % (36.0-46.0); HGB 12.9 g/dL (11.2-15.7); MCH 30.1 pg (27.0-33.0); MCHC 32.2 % (32.0-36.0); MCV 94 fL (80-95); MPV 12.4 fL (8.0-11.0); Platelet Count 261 10^3/uL (130-400); RBC 4.28 10^6/uL (3.93-5.22); RDW 14.7 % (11.7-14.6); RDW-SD 50.7 fL; WBC 11.58 10^3/uL (4.4-10.8)
[2025-04-07 07:07] LABS: Anion Gap 8.8 mmol/L (3-11); BUN 17 mg/dL (9-23); CO2 29.2 mmol/L (20.0-31.0); Calcium 9.1 mg/dL (8.3-10.6); Chloride 102 mmol/L (98-107); Glucose 98 mg/dL (74-106); Magnesium 2.1 mg/dL (1.6-2.6); Potassium 3.6 mmol/L (3.5-5.1); Sodium 140 mmol/L (136-145)
[2025-04-07 07:41] VITALS: BP 142/75; PULSE 66; RESP 15; TEMP 37.3; O2SAT 95
[2025-04-07] MEDS: Metoprolol 12.5 MG TAB 25 MG PO (08:05)
[2025-04-07] MEDS: Enoxaparin 40 MG/0.4 ML SYR SC (08:05)
[2025-04-07] MEDS: predniSONE 20 MG TAB 40 MG PO (08:06)
[2025-04-07] MEDS: Lisinopril 20 MG TAB 40 MG PO (08:06)
[2025-04-07] MEDS: Normal Saline Flush 10 ML SYR IVP (08:06)
[2025-04-07] MEDS: Doxycycline Hyclate 100 MG CAP PO (08:06)
[2025-04-07] MEDS: Aspirin 81 MG CHEW PO (08:06)
[2025-04-07] MEDS: amLODIPine 10 MG TAB PO (08:06)
[2025-04-07 08:08] VITALS: O2SAT 94
[2025-04-07] MEDS: Budesonide/Formoterol 80/4.5 6.9 GM 60 PUFF INH IH (08:27)
[2025-04-07 09:15] VITALS: O2SAT 90
[2025-04-07 09:20] VITALS: O2SAT 89
[2025-04-07] MEDS: guaiFENesin 600 MG TABCR PO (09:23)
[2025-04-07] MEDS: Benzonatate 200 MG CAP PO (09:24)
--- NOTE | 2025-04-07 09:39 | W.PM.DS.N ---
Date of service: 04/07/25 Time of Service: 09:39 DS: Diagnosis Discharge Diagnosis (1) COPD with acute exacerbation: Status: Acute (2) Acute hypoxemic respiratory failure: Status: Acute (3) CAD (coronary artery disease): Status: Chronic (4) Hypertension: Status: Chronic Discharge Plan Disposition Patient Disposition: Home Condition: Good Discharge Details Reason For Visit: Acute Exacerbation of COPD, Acute Hypoxic Respirat Admit Date/Time: 04/06/25 15:24 Admit Provider: Ryan Montalvo Attending Provider: Ryan Montalvo Primary Care Provider: Radha Anne Hospital Course Hospital Course: Patient was initially admitted with an acute exacerbation of COPD that was ultimately found to have been likely secondary to RSV. Patient also had acute hypoxic respiratory failure saturating 87% on room air requiring 2 L nasal cannula. With breathing treatments and steroids patient had significant improvement overnight and was saturating between her goal of 88 to 92% on room air. Patient stated that she was feeling better and would prefer to continue her recovery at home. Given that the patient was stable it was determined that she was able to be discharged home. Home Meds and New Rx's Prescriptions: New benzonatate 200 mg Capsule 200 mg PO TID Qty: 20 0RF doxycycline hyclate 100 mg Capsule 100 mg PO BID Qty: 10 0RF guaifenesin [Mucus Relief ER] 600 mg Tablet Extended Release 12hr 600 mg PO BID Qty: 10 0RF prednisone 20 mg Tablet 40 mg PO DAILY 5 Days Qty: 10 0RF Continued nitroglycerin 0.4 mg tablet, sublingual 0.4 mg sublingual Q5-15M PRN (Reason: chest pain) Qty: 25 0RF Rx Instructions: take as needed q 5 mins for c/p until gone if take 3 pills and pain persists, call lisinopril 40 mg tablet 40 mg PO DAILY Qty: 90 3RF metoprolol tartrate 25 mg tablet 25 mg PO BID Qty: 180 4RF Zyrtec 10 mg capsule 10 mg PO DAILY amlodipine 10 mg tablet 10 mg PO DAILY Qty: 90 3RF aspirin [Aspirin Low-Strength] 81 MG tablet,chewable 81 mg PO DAILY ibuprofen 200 MG tablet 2 tab PO HS albuterol sulfate 90 mcg/actuation HFA aerosol inhaler 1 - 2 puff Inhalation Q4H PRN Qty: 1 2RF albuterol sulfate 2.5 mg /3 mL (0.083 %) solution for nebulization 2.5 mg Inhalation q4-6 h prn Qty: 1 4RF fluticasone furoate-vilanterol [Breo Ellipta] 200-25 mcg/dose blister with device 1 inh inhalation DAILY Qty: 60 5RF No Action (DME) POCKET CHAMBER Spacer See Rx Instructions .Route Qty: 1 0RF Rx Instructions: As directed Discharge Instructions Stand Alone Forms: Portal Information, Nursing Discharge Form Referrals: Radha Anne MD [Primary Care Provider, Medicine] Referral Note: Your PCP should reach out, if you do not hear from them please call. Activity:: Activity as Tolerated Equipment/Supplies:: No Equipment Needed Diet:: As Tolerated Discharge Orders Discharge Orders: Discharge Order (Routine); Ordered 04/07/25 Ordered By: Ryan Montalvo Discharge Data Discharge Date/Time-TO BE ENTERED AT DEPARTURE: 04/07/25 12:52 DS: Summary Time Spent with Patient providing and/or coordinating discharge services: Greater than 30 minutes Status at Discharge Functional status at discharge: independent ambulation Overall status at discharge: patient is back to baseline Mental Status: mental status grossly normal Speech and Movement: speech and movement normal Mood: congruent mood Affect: normal affect Exam Narrative Exam Narrative: well appearing older female sitting up in the chair in no acute distress, AOx4, heart RRR, lungs with minimal end expiratory wheezing heard throughout bilateral lung bolton, abdomen soft, non-tender, non-distended Psych Mental Status: mental status grossly normal Speech and Movement: speech and movement normal Mood: congruent mood Affect: normal affect DS: Data Vitals/I&O Vitals and I&O: Vital Signs Temperature 99.1 F 04/07/25 07:41 Temperature Source Tympanic 04/07/25 07:41 Pulse 66 04/07/25 07:41 Pulse Rhythm Regular 04/06/25 17:35 Respiratory Rate 15 04/07/25 07:41 Respiratory Effort Short of Breath 04/06/25 17:35 Respiratory Depth Normal 04/06/25 17:35 Respiratory Pattern Normal 04/06/25 17:35 Blood Pressure 142/75 H 04/07/25 07:41 Blood Pressure Mean 97 04/07/25 07:41 Blood Pressure Position Sitting 04/06/25 11:20 Pulse Oximetry 89 L 04/07/25 09:20 Oxygen Delivery Method Room Air 04/07/25 09:20 Oxygen Flow Rate 0 04/07/25 09:20 Pain Level 0 04/07/25 07:41 Comment trial RA pt spo2 88%RA this RN turned o2 back to 2l NC spo2 back to 93% 04/06/25 14:51 Intake & Output 04/06/25 04/07/25 04/07/25 17:59 05:59 17:59 Intake Total Balance Weight 211 lb 6.773 oz 211 lb 6.773 oz Intake: IV Other: Urine Color Yellow Urine Appearance Clear Data Completed and Pending Pending Labs at Discharge: 04/06/25 04/06/25 04/06/25 12:23 13:28 14:19 WBC 11.83 H RBC 4.36 Hgb 13.1 Hct 40.5 MCV 93 MCH 30.0 MCHC 32.3 RDW 14.6 Plt Count 245 MPV 11.9 H Immature Gran % 0.5 Neutrophils % 79.3 Lymphocytes % 9.0 Monocytes % 10.0 Eosinophils % 0.8 Basophils % 0.4 Nucleated RBC % 0.0 Absolute Neutrophils 9.38 H Absolute Lymphocytes 1.06 L Absolute Monocytes 1.18 H Absolute Eosinophils 0.09 Absolute Basophils 0.05 RBC Morphology Normal VBG pH 7.38 VBG pCO2 52 H VBG pO2 28 VBG HCO3 31 H VBG Total CO2 28 VBG O2 Saturation 45 VBG Base Excess 5 H Sodium 138 Potassium 4.3 Chloride 101 Carbon Dioxide 29.6 Anion Gap 7.4 BUN 13 Creatinine 0.63 Est GFR (CKD-EPI 2020) 91.74 Glucose 95 Calcium 9.6 Magnesium 2.0 Troponin I 33 36 H* 35 COVID-19 Source SARS-CoV-2 (PCR) Influenza Type A (PCR) Influenza Type B (PCR) RSV (PCR) 04/06/25 04/07/25 17:30 06:05 WBC 11.58 H RBC 4.28 Hgb 12.9 Hct 40.1 MCV 94 MCH 30.1 MCHC 32.2 RDW 14.7 H Plt Count 261 MPV 12.4 H Immature Gran % Neutrophils % Lymphocytes % Monocytes % Eosinophils % Basophils % Nucleated RBC % Absolute Neutrophils Absolute Lymphocytes Absolute Monocytes Absolute Eosinophils Absolute Basophils RBC Morphology VBG pH VBG pCO2 VBG pO2 VBG HCO3 VBG Total CO2 VBG O2 Saturation VBG Base Excess Sodium 140 Potassium 3.6 Chloride 102 Carbon Dioxide 29.2 Anion Gap 8.8 BUN 17 Creatinine 0.69 Est GFR (CKD-EPI 2020) 82.60 Glucose 98 Calcium 9.1 Magnesium 2.1 Troponin I COVID-19 Source Nasopharynx SARS-CoV-2 (PCR) Negative Influenza Type A (PCR) Negative Influenza Type B (PCR) Negative RSV (PCR) Positive A* PFSH All Active Problems (Updated 04/06/25 @ 15:34 by Ryan Montalvo MD) Acute hypoxemic respiratory failure (Acute) COPD with acute exacerbation (Acute) Acute respiratory failure with hypoxia and hypercarbia (Acute) Chronic cough (Acute) Right lower lobe lung mass (Chronic 07/2024) 2.1 cm suspiciousn for CA; patient declines further evaluation, aware of diagnosis potential. 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 s/p RCA stenting b. 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 s/p splenectomy but CT scan at [facility] showing splenosis, thus probably no immuno-impaired Ligation of fallopian tube BSO Stent placement (~06/2008) X 1 Family History (Updated 07/25/24 @ 11:25 by Radha Anne MD) Mother Essential hypertension Aortic aneurysm Father Heart disease [place] (8) Essential hypertension Aortic aneurysm Heart disease Hyperlipidemia Daughter , 48 Breast cancer Social History (Updated 07/25/24 @ 11:26 by Radha Anne MD) Smoking/Tobacco Use Status: Former Tobacco Use tobacco type: cigarettes Quit Date: 01/29/08 Tobacco: How many years used: 40 Second Hand Exposure: Yes Smoking risk assessment performed?: Yes Alcohol Intake: former Drug use: Never Substance use type: does not use Caregiver/Support person: No Household members: significant other Housing: house Number of Children: 5 Education Level: middle school Details: 8th grade Do you need help understanding health information?: Rarely 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, [employer], [employer] Pets and animals: No Sexually active: No Do you think of yourself as: straight/heterosexual Current gender identity: female What is your relationship status?: living with partner How often do you talk on the phone with friends or family?: once per week How often do you get together with friends or relatives?: never Do you belong to any clubs or organized social groups?: no Panel score (0-1 are the most socially isolated patients): 1 What type of physical activity do you participate in: other Details: house hold activities [place]/Jainism: Spiritism Special [place] needs: No Do you feel safe at home: Yes Do you feel safe in your relationship?: Yes Time Spent with Patient Time Spent with Patient: <45 minutes Time was spent: preparing to see the patient(eg.review tests), obtaining and/or reviewing separately otained hiistory, ordering medications,tests, procedures, referring, communicating with other health transitional care manager, indepentently interpreting results, counseling the patient and care coordination
--- NOTE | 2025-04-07 15:55 | PDOC.CMDIS ---
Date of service: 04/07/25 Time of Service: 10:00 LACE Index Scoring Tool Questions: Length of Stay (in days): 1 Was the patient admitted via the E.D.?: Yes Comorbidities: Congestive Heart Failure and Chronic Pulmonary Disease E.D. Visits: 1 Answers: Total Score: 10 Risk of Readmission: High Risk Care Management Discharge Plan Reason for Hospitalization: COPD exacerbation- RSV Discharge Plan: Holli was discharged home this morning with no new services. She was feeling much better, and was dx with RSV, so did not require IV abx, and chose to go home. Holli will f/u with her PCP and continue per her plan of care. She was transported home by her . Patient/Family Education Needs: Review of discharge instructions, activity, limitations, and discuss Ask me 3.
== END 2025-04-07 12:52 | disposition home or self-care (01) | DRG 190 ==
LOC: ER 15:14 → MS 18:00
PROVIDERS: Admitting Provider Family Medicine; Emergency Provider Emergency Medicine; PCP Family Medicine; Responsible Provider Family Medicine; Visit Provider Family Medicine
DX: J44.1 Chronic obstructive pulmonary disease with (acute) exacerbation (principal); J96.21 Acute and chronic respiratory failure with hypoxia; I44.2 Atrioventricular block, complete; E66.9 Obesity, unspecified; I50.9 Heart failure, unspecified; I11.0 Hypertensive heart disease with heart failure; J44.0 Chronic obstructive pulmonary disease with (acute) lower respiratory infection; Z68.37 Body mass index [BMI] 37.0-37.9, adult; I25.10 Atherosclerotic heart disease of native coronary artery without angina pectoris; R05.3 Chronic cough; R91.1 Solitary pulmonary nodule; J84.10 Pulmonary fibrosis, unspecified; E55.9 Vitamin D deficiency, unspecified; G47.30 Sleep apnea, unspecified; F43.21 Adjustment disorder with depressed mood; G47.00 Insomnia, unspecified; Z87.891 Personal history of nicotine dependence; Z95.0 Presence of cardiac pacemaker; E78.5 Hyperlipidemia, unspecified; K44.9 Diaphragmatic hernia without obstruction or gangrene; Z79.899 Other long term (current) drug therapy; J22 Unspecified acute lower respiratory infection; B97.4 Respiratory syncytial virus as the cause of diseases classified elsewhere
CPT/HCPCS: 00123; 36415; 80048; 82805; 85027; 87637; 93005; 94640; 99285; J1650; 71045; 83735; 84484; 85025; 93010; 94664; 99223; 99239; J3490; J7512; J7613; J7620